=== PATIENT | female | born 1985 | race Caucasian/White ===

== ENCOUNTER 2021-08-31 13:43 | Outpatient (CLI) | payer OTHER, SELFPAY ==
[2021-08-31 14:08] LABS: Basophils Percent Auto 0.2 % (0.2-1.2); Eosinophils Percent Auto 0.2 % (0-4.4); Hematocrit 34.5 % (37.0-47.0); Immature Granulocyte Absolute 0.12 K/mm3 (0.00-0.031); Immature Granulocyte Percent A 0.9 % (0-0.5); Lymphocytes Absolute Auto 1.91 K/mm3 (0.9-3.2); Lymphocytes Percent Auto 14.6 % (18.3-44.2); Mean Corpuscular HGB Conc 34.8 g/dl (32-36); Mean Corpuscular Hemoglobin 34.4 pg (26-34); Mean Corpuscular Volume 98.9 fl (80-100); Mean Platelet Volume 9.2 fl (7.4-10.4); Monocytes Absolute Auto 0.6 K/mm3 (0.1-0.6); Monocytes Percent Auto 4.3 % (2.6-8.5); Neutrophils Absolute Auto 10.5 K/mm3 (1.3-6.7); Neutrophils Percent Auto 79.8 % (45.5-73.1); Platelet Count Result 306 k/mm3 (150-375); Red Blood Count 3.49 M/mm3 (4.2-5.4); Red Cell Distribution Width 12.8 % (11.5-14.5); White Blood Count 13.1 K/mm3 (4.5-10.0)
[2021-09-01 07:30] LABS: Rapid Plasma Reagin Non-Reactive (NonReactive)
== END 2021-08-31 13:44 | disposition home or self-care (01) ==
LOC: ANHLAB 13:45
PROVIDERS: Visit Provider Obstetrics & Gynecology
DX: O34.219 Maternal care for unspecified type scar from previous cesarean delivery (principal); Z3A.38 38 weeks gestation of pregnancy
CPT/HCPCS: 36415; 85025; 86592; 86850; 86900; 86901

== ENCOUNTER 2021-09-01 07:08 | Inpatient (IN) | payer OTHER, SELFPAY ==
[2021-09-01] VITALS (61 sets, daily range): BP systolic 88–143; BP diastolic 60–89; PULSE 79–117; RESP 14–20; TEMP 36.2–36.6; O2SAT 94–100; BMI 40.8
--- NOTE | 2021-09-01 08:10 | P.PNAN_ITS ---
Anes - Initial Pre Proc Eval Procedure: Operation Date: 09/01/21 09:00 Proposed Procedures p Repeat Section - Saloni Mercado MD Date/Time: 09/01/21 08:10 Surgeon: Saloni Mercado MD Pre Op Diagnosis: C Section Patient Data Age: 36 Gender: F Height: Weight: Allergies Allergy/AdvReac Type Severity Reaction Status Date / Time ibuprofen Allergy Mild RASH ALL Verified 11/21/19 16:25 OVER BODY Home Medications Medication Instructions Recorded Confirmed Type PNV cmb#95-ferrous fumarate-FA 1 tablet PO DAILY 08/10/21 08/10/21 History [] acetaminophen 650 mg PO Q6H PRN 08/10/21 08/10/21 History aspirin 81 mg PO DAILY 08/10/21 08/10/21 History chlorthalidone 25 mg PO DAILY 08/10/21 08/10/21 History labetalol 200 mg PO Q12H 08/10/21 08/10/21 History Patient hx anesthesia problems: none Family hx anesthesia problems: none Results Review: All pre-operative results and documents have been reviewed as part of the pre-operative evaluation. REPLACED BY [facility] Past Medical History Medical History Asthma Smoker Surgical History Surgical History History of Family History Family History (Updated 08/10/21 @ 13:46 by Jose L Sosa RN) Mother Heart attack Brain aneurysm Father Heart attack Social History Social History Smoking packs per day: 0.5 Smoking cigarettes per day: 10.0 Smoking status: Current every day smoker Second hand tobacco smoke exposure: Yes Substance use: never Spiritual care concerns: No Anes - Eval Final PreProcedure Day of Procedure 09/01/21 08:10 Patient weight: overweight Heart: regular rate and rhythm Lungs: clear to auscultation and normal air movement Airway: Mallampati scale class II Neurological: alert and oriented Last oral intake: >/= 8 hours ASA classification: II Emergent: no Anesthetic plan: proceed Anesthesia type and monitoring: regional spinal Results Review: All pre-operative results and documents have been reviewed as part of the pre-operative evaluation. Informed Consent: The patient's anesthetic plan and its attendant risks and benefits were discussed with the patient/family/POA. Questions were solicited and answers provided to the satisfaction of the patient/family/POA.
[2021-09-01] MEDS: LACTATED RINGERS 1,000 ML 999 ML IV CONT (08:16)
--- NOTE | 2021-09-01 08:50 | LDADM ---
This patient, Jillian Damon, was admitted to Labor/Delivery/Recovery 120 on 09/01/21 at 07:08. Plans for labor, pain management and were discussed with patient. Patient/family oriented to hospital policies and general routines including ID bracelet, bed and alarms, visiting hours, pain management, procedures, bathroom and other care routines, personal items, smoking policy, room service/diet and guest tray routines, security routines, and visiting hours. Patient/Family are encouraged to report perceived risks to care and to ask questions if they do not understand what they are told or what they should do. See OBIX for further documentation.
--- NOTE | 2021-09-01 08:56 | PM.IMHP ---
H&P: HPI History of Present Illness Date/Time: 09/01/21 08:56 Chief Complaint: repeat CS Narrative: Jillian is a 36yo at 38 weeks for repeat CS. complicated by AMA, asthma, and chronic HTN. On chlorthalidone 25mg and added labetalol 200BID several weeks ago. 24 hour urine did not show preeclampsia. 3 prior CS with known significant adhesions such that they were unable to tie her tubes last time. She desires tubal if tubes are easily accessible, but her will get a vasectomy if they are not. GBS pos. Review of Systems Review of Systems: All systems reviewed & are unremarkable except as noted in HPI and below PMFSH Past Medical History Medical History Asthma Chronic hypertension Smoker Surgical History Surgical History History of Family History Family History (Updated 08/10/21 @ 13:46 by Jose L Sosa RN) Mother Heart attack Brain aneurysm Father Heart attack Social History Social History Smoking packs per day: 0.5 Smoking cigarettes per day: 10.0 Smoking status: Never smoker Second hand tobacco smoke exposure: Yes Substance use: never Spiritual care concerns: No Meds Home Medications and Allergies Home Medications Medication Instructions Recorded Confirmed Type PNV cmb#95-ferrous fumarate-FA 1 tablet PO DAILY 08/10/21 08/10/21 History [] acetaminophen 650 mg PO Q6H PRN 08/10/21 08/10/21 History aspirin 81 mg PO DAILY 08/10/21 08/10/21 History chlorthalidone 25 mg PO DAILY 08/10/21 08/10/21 History labetalol 200 mg PO Q12H 08/10/21 08/10/21 History Allergies Allergy/AdvReac Type Severity Reaction Status Date / Time ibuprofen Allergy Mild RASH ALL Verified 11/21/19 16:25 OVER BODY Exam Const: General: no acute distress Resp: Effort & Inspection: normal respiratory effort Auscultation: clear to auscultation bilaterally Cardio: Rate: regular rate Rhythm: regular rhythm GI: GI Palp: Yes Soft to palpation Extrem: General: normal to inspection Assessment and Plan Additional Plan Plan Repeat CS Discussed RBA, pt consented, all questions answered. will do salpingectomy or tubal if able to access tubes. FHT category 1 will proceed.
--- NOTE | 2021-09-01 09:01 | WPDHPUPDATE1 ---
History and Physical Update Update Date/Time: 09/01/21 09:01 History and Physical has been reviewed, including an updated exam of the patient. There are NO changes in the patient's condition. Risks, benefits, and alternatives have been discussed and questions answered. Patient agrees to proceed with procedure.
[2021-09-01] MEDS: ceFAZolin 2 GM/D5W 50 ML 2 GM/50 ML BAG IVPB (09:23)
--- NOTE | 2021-09-01 11:00 | W.PM.PROC2 ---
Procedure Note - Detailed Date of Procedure 09/01/21 Pre-op Diagnosis C Section, undesired fertility Post-op Diagnosis same Procedure Performed repeat section with left salpingectomy and partial right salpingectomy Surgeon Saloni Mercado MD [employer] see delivery record Anesthesia spinal Indications prior CS Description of Procedure The patient was taken to the operating room and placed in supine position with left lateral tilt. She received spinal anesthesia and was prepped and draped in normal fashion. Acharya was in place. After testing for adequate regional anesthesia, a Pfannensteil incision was made through skin and subcutaneous tissue. The fascia was incised in the midline and this was extended laterally with wright scissors. The fascia was densely adherent in the midline. The rectus muscles were from the fascia both superiorly and inferiorly. The rectus muscles were densely adherent to the peritoneum and the uterus. Upon attempting to enter the peritoneum, an incidental hysterotomy was made bluntly and clear amniotic fluid was noted. The hysterotomy was mid transverse due to adhesions and was extended laterally with bandage scissors. The head was elevated to the incision. The head delivered easily. The remainder of the infant was delivered easily. After delayed cord clamping, the cord was cut and the baby handed to the nurse. The uterus was tethered to the rectus muscles and the anterior abdominal wall, but one thick adhesion was able to be freed up so the uterus could be exteriorized. The placenta was extracted manually. The uterus was wiped clean to ensure no remaining membranes. The uterus was closed with three layers of running, nonlocking suture of 3-0 vicryl. Due to the dense adhesions, several raw areas were not hemostatic and several figure of eight sutures were placed with good result. At this time we turned our attention to the tubes. The right tube was grasped with two [place] clamps and using the Ligasure device was sequentially clamped, ligated, and cut. The fimbriated end of the right tube was adherent to the ovary, and this end of the tube was left in place. On the left the entire tube was removed in a similar fashion with the Ligasure device. The uterus was returned to the pelvis and the abdomen was irrigated. The hysterotomy was again inspected and minimal oozing was noted. Hemaderm was placed. The fascia was closed with running suture of 0-vicryl. The subcutaneous tissue was irrigated and made hemostatic with bovie cautery. The skin was closed with absorbable seng and steri strips were placed. The patient tolerated the procedure well and mother and baby were both in stable condition. QBL 1330cc. Drains No Packing No Pathology yes Complications No immediate complications Condition stable Disposition floor
[2021-09-01] MEDS: OXYTOCIN 30 UNITS/NS 500 ML 30 UNITS/500 ML BAG 125 UNITS IV CONT (11:28)
[2021-09-01 13:25] LABS: Hemoglobin 10.7 g/dL (12.0-15.0); Mean Corpuscular HGB Conc 34.5 g/dl (32-36); Mean Corpuscular Hemoglobin 34.7 pg (26-34); Mean Corpuscular Volume 100.6 fl (80-100); Mean Platelet Volume 9.5 fl (7.4-10.4); Platelet Count Result 306 k/mm3 (150-375); Red Blood Count 3.08 M/mm3 (4.2-5.4); Red Cell Distribution Width 12.8 % (11.5-14.5); White Blood Count 16.7 K/mm3 (4.5-10.0)
--- NOTE | 2021-09-01 14:54 | OBPPTRN ---
1318 Patient transferred to post room #277 via bed. Support person present. Oriented to unit, room, information board, rooming in, admission packet and security measures. Patient verbalizes understanding.
--- NOTE | 2021-09-01 15:00 | PC.NURSE ---
Consult with pt. mother reports she put infant to breast at 1420, stating latched without discomfort and fed for 10 minutes. Reviewed infant feeding cues, frequencies, duration of feedings, feeding elimination flow sheet, and signs of adequate intake. Demonstrated stimulation techniques to wake infant for feeding. Nipple care reviewed of lanolin after feedings, warm compresses as needed. Instructed mother to call out for RN/LC assistance next feeding. Instructed feeding should be initiated three hours from start of last feeding or if feeding cues are noted before. Mother voiced understanding of information shared
[2021-09-01] MEDS: DEXTROSE 5%/0.45% SOD CHL 1,000 ML 125 ML IV CONT (16:33)
[2021-09-01] MEDS: DOCUSATE SODIUM 100 MG CAPSULE PO (16:35)
--- NOTE | 2021-09-01 17:52 | PC.NURSE ---
1318 Pt stated that she took her Labetalol 200mg at 0630 today.
[2021-09-01] MEDS: LABETALOL HCL 100 MG TABLET 200 MG PO (19:19)
[2021-09-01] MEDS: SIMETHICONE 80 MG TAB.CHEW PO (21:17)
[2021-09-02 04:05] VITALS: BP 106/68; PULSE 93; RESP 18; TEMP 36.9; O2SAT 95
[2021-09-02 04:50] LABS: Basophils Percent Auto 0.3 % (0.2-1.2); Eosinophils Absolute Auto 0.1 K/mm3 (0-0.3); Eosinophils Percent Auto 0.8 % (0-4.4); Hematocrit 27.5 % (37.0-47.0); Hemoglobin 9.4 g/dL (12.0-15.0); Immature Granulocyte Absolute 0.13 K/mm3 (0.00-0.031); Immature Granulocyte Percent A 1.1 % (0-0.5); Lymphocytes Absolute Auto 2.24 K/mm3 (0.9-3.2); Lymphocytes Percent Auto 19.8 % (18.3-44.2); Mean Corpuscular HGB Conc 34.2 g/dl (32-36); Mean Corpuscular Hemoglobin 34.2 pg (26-34); Mean Platelet Volume 9.6 fl (7.4-10.4); Monocytes Absolute Auto 0.6 K/mm3 (0.1-0.6); Monocytes Percent Auto 5.4 % (2.6-8.5); Neutrophils Absolute Auto 8.2 K/mm3 (1.3-6.7); Neutrophils Percent Auto 72.6 % (45.5-73.1); Platelet Count Result 274 k/mm3 (150-375); Red Blood Count 2.75 M/mm3 (4.2-5.4); Red Cell Distribution Width 12.7 % (11.5-14.5); White Blood Count 11.3 K/mm3 (4.5-10.0)
--- NOTE | 2021-09-02 07:40 | P.PNOB_ITS ---
OB - PN: Subj Subjective Date/time seen: 09/02/21 07:40 Patient comments: no complaints and pain well controlled baby status: nursing well Wilmot feeding status: exclusively breast feeding Narrative: POD 1 from primary CS. Doing well. Normal lochia. Eating, ambulating, murray out. HGb 9 from 12, but no sx. OB - PN: Obj Data Labs CBC & Chem 7: 09/02/21 04:16 Labs: Laboratory Results - last 24 hr 09/01/21 09/02/21 13:06 04:16 WBC 16.7 H 11.3 H RBC 3.08 L 2.75 L Hgb 10.7 L 9.4 L Hct 31.0 L 27.5 L MCV 100.6 H 100.0 MCH 34.7 H 34.2 H MCHC 34.5 34.2 RDW 12.8 12.7 Plt Count 306 274 MPV 9.5 9.6 Immature Gran % (Auto) 1.1 H Neut % (Auto) 72.6 Lymph % (Auto) 19.8 [place] % (Auto) 5.4 Eos % (Auto) 0.8 Baso % (Auto) 0.3 Lymph # (Auto) 2.24 [place] # (Auto) 0.6 Eos # (Auto) 0.1 Baso # (Auto) 0.0 Abs Immat Gran (auto) 0.13 H Absolute Neuts (auto) 8.2 H Absolute Nucleated RBC 0.0 Nucleated RBC % 0.0 OB - PN A/P Plan day: 1 Plan: routine care Comments: IV iron routine post op care Time Spent With Patient Time: Total time spent is greater than 50% in coordination of care (as documented) at patient's floor/unit and/or counseling patient: Exam Narrative: NAD abdomen soft, appropriately tender, incision bandaged Extremities nontender with 1+ edema
[2021-09-02 07:50] VITALS: BP 120/78; PULSE 106; RESP 18; TEMP 36.7; O2SAT 95
[2021-09-02] MEDS: CHLORTHALIDONE 25 MG TABLET PO (08:10)
[2021-09-02] MEDS: POLYSACCHARIDE IRON COMPLEX 150 MG CAPSULE PO ×2 (08:10→16:04)
[2021-09-02] MEDS: MULTIVIT/MIN/PREN/FOL AC/IRON TABLET 1 TAB PO (08:10)
[2021-09-02] MEDS: DOCUSATE SODIUM 100 MG CAPSULE PO ×2 (08:10→16:04)
[2021-09-02 08:11] VITALS: PULSE 80
[2021-09-02] MEDS: LABETALOL HCL 100 MG TABLET 200 MG PO ×2 (08:11→19:22)
[2021-09-02] MEDS: ACETAMINOPHEN 325 MG TABLET 650 MG PO (08:15)
[2021-09-02] MEDS: IRON SUCROSE COMPLEX 100 MG/5 ML VIAL 200 MG IV PUSH (08:17)
--- NOTE | 2021-09-02 11:45 | PC.NURSE ---
Consult with pt., mother reports she began supplementing during the night. was sleepy and not latching. Mother would like to breastfeed. Infant is able to freely thrust tongue past gum ridge and flange both lips. Skin is intact on both nipples, no redness and bruising noted. Reviewed infant feeding cues, frequencies, duration of feedings, feeding elimination flow sheet, and signs of adequate intake. Infant is wrapped in 2 blankets snugged up to mother. unwrapped demonstrated stimulation techniques to wake for feeding. Assisted with to breast. Reviewed positioning/alignment in football, holding breast in ?C? hold and guided asymmetrical latch on. Reviewed rational for each. Several attempts before infant able to latch correctly. Infant nursed eagerly with steady draws for short bursts followed with long pausing occasional swallowing noted. Reviewed signs of a correct latch, effective nursing and suck swallow ratio. Suggested mother stimulate while feeding to increase stimulate, increase intake and to assist with maintaining deep latch. Infant was able to maintain latch without discomfort to mother. Demonstrated how to adjust latch more deeply while feeding as needed. Nipple care reviewed of lanolin after feedings, warm compresses as needed. Discussed to supplement after . Suggested to limit supplement to 15-20mls and to pace feed. Instructed mother to call out for RN assistance if she is unable to latch for feeding or she has discomfort with nursing. Instructed feeding should be initiated three hours from start of last feeding or if feeding cues are noted before. Mother voiced understanding of information shared.
--- NOTE | 2021-09-02 14:29 | WPDANLDPN2 ---
Anes-Prog Note L&D Date/Time: 09/02/21 14:29 Comfortable throughout: section Neuraxial method: spinal Epidural/Spinal procedure site: clean & non-tender Neuro status: Neuro function grossly intact. Cardiovascular status: normal Respiratory status: normal Airway patency: baseline Mental status: baseline Post-Op hydration status: normal Vital Signs: Last Vital Signs Temp 36.7 C 09/02/21 07:50 Pulse 80 09/02/21 08:11 Resp 18 09/02/21 07:50 BP 120/78 09/02/21 07:50 Pulse Ox 95 09/02/21 07:50 Pain score (VAS): 4 I/O: Intake & Output 09/01/21 09/02/21 09/02/21 23:59 07:59 15:59 Intake Total 900 1150 Output Total 950 800 500 Balance -50 350 -500 Post-procedural complaints: none Patient feedback: Patient satisfied with anesthetic care.
--- NOTE | 2021-09-02 14:29 | WPDANLDNPN2 ---
Anes-Prog Note L&D-Neuraxial Date/Time: 09/02/21 14:29 Neuraxial medications: intrathecal PF morphine Opiod-related complaints: none Patient feedback: Patient satisfied with post-operative pain management.
[2021-09-02] MEDS: HYDROcodone/acetaminophen (*CRX) 5-325 MG TABLET 1 TAB PO ×2 (14:39→18:36)
[2021-09-02 19:20] VITALS: BP 127/78; PULSE 99; RESP 18; TEMP 36.9; O2SAT 96
[2021-09-02 19:22] VITALS: PULSE 99
[2021-09-03 07:35] VITALS: BP 131/84; PULSE 93; RESP 18; TEMP 36.9; O2SAT 96
[2021-09-03 08:10] VITALS: PULSE 87
[2021-09-03] MEDS: LABETALOL HCL 100 MG TABLET 200 MG PO (08:10)
[2021-09-03] MEDS: POLYSACCHARIDE IRON COMPLEX 150 MG CAPSULE PO (08:11)
[2021-09-03] MEDS: DOCUSATE SODIUM 100 MG CAPSULE PO (08:11)
[2021-09-03] MEDS: MULTIVIT/MIN/PREN/FOL AC/IRON TABLET 1 TAB PO (08:11)
--- NOTE | 2021-09-03 08:21 | PM.OBPNVD ---
OB - PN: Subj Subjective Date/time seen: 09/03/21 08:21 Patient comments: no complaints, pain well controlled, tolerating diet and flatus present baby status: doing well OB - PN: Obj Data Labs CBC & Chem 7: 09/02/21 04:16 OB - PN A/P Plan day: 2 Plan: routine care and discharge home (Follow up in 1 week) Time Spent With Patient Time: Total time spent is greater than 50% in coordination of care (as documented) at patient's floor/unit and/or counseling patient: Time with patient: less than 15 minutes Review of Systems Review of Systems: All systems reviewed & are unremarkable except as noted in HPI and below Exam Narrative: Fundus firm. Vaginal flow controlled. Incision dry and intact. Negative homans. No redness, warmth, or pain of lower ext. Const: General: comfortable Chest: Breast/axilla inspection: normal inspection of the breasts Resp: Effort & Inspection: normal respiratory effort Auscultation: clear to auscultation bilaterally Cardio: Rate: regular rate GI: GI Palp: Yes Soft to palpation Psych: Appearance: grossly normal Affect: normal affect Attitude: cooperative Thought content: Yes Normal thought content present Judgement: Good judgement present (Psych)
[2021-09-03] MEDS: CHLORTHALIDONE 25 MG TABLET PO (08:47)
[2021-09-03] MEDS: HYDROcodone/acetaminophen (*CRX) 5-325 MG TABLET 1 TAB PO (08:48)
--- NOTE | 2021-09-03 10:25 | PC.NURSE ---
Patient instructed on viewing the discharge video Mother & Baby Care, The First Two Weeks . Patient was given the opportunity and encouraged to ask questions. Patient verbalized understanding of information shared and has been given the mother/baby guide for home reference.
[2021-09-04 08:56] VITALS: BP 117/74; PULSE 94; RESP 20; TEMP 37.6; O2SAT 98
--- NOTE | 2021-09-21 08:22 | PM.OBDSVD ---
DS: Admitting Diagnosis Discharge Date 09/03/21 Admitting Diagnosis Repeat OB - DS: Summary OB Procedures : None OB Procedures Intrapartum: OB Procedures: : None Peripartum Data Procedures: Procedures Operation Date: 09/01/21 09:00 Actual Procedure Side Surgeon p Repeat Section Saloni Mercado MD Time Spent with Patient Time attestation: Total time spent providing and/or coordinating discharge services: DS: Data Data Completed and Pending Completed studies during hospitalization: Pending at discharge 09/01/21 11:21 Surgical [PTH] Routine Discharge Plan Discharge Attending physician on discharge: Saloni Mercado Consulting providers: Carolyn Little ; Francisco Benites Discharging Clinician: Carolyn Little Patient Disposition: Home, Self-Care Activity: pelvic rest Diet: as tolerated Discharge Instructions: Education: Mom and Baby Guide Given to: Mother Follow-Up: Call your delivering provider's office for an appointment to be seen in: Call for appointment [facility] follow[facility]up appointment. Appointment Date/Time: September 04, 2021 at 9:00 am What to expect at your follow-up visit: Blood Pressure Check Physical Assessment Call [phone] if you are unable to keep your appointment time. BREAST CARE: * Wear a snug supportive bra. * For engorgement discomfort: Breast Feeding: * Apply warm moist washcloths * Express milk as needed to relieve engorgement * Wear loose clothing * For sore nipples: * Identify correct latch-on * Apply warm moist washcloths before and after nursing * Air dry nipples after nursing * May apply Lansinoh cream to nipples ABDOMINAL INCISION: (if applicable) * Allow incision to air dry * Do NOT use lotions for powders on your incision * When showering, allow soap and water to run over the incision, but do not wash incision EPISIOTOMY/PERINEAL CARE: * Until bleeding stops, use your vipul bottle after urinating * Change your pad frequently throughout the day * No tub baths until seen by your physician - You may shower ACTIVITY: * Rest as much as possible. * Do not exercise or lift anything heavier than your baby (such as laundry or other children.) * Avoid stairs or driving as much as possible. * Do not put anything into the vagina. No douching, tampons, or sexual activity until seen by physician. NOTIFY PHYSICIAN IF YOU HAVE ANY QUESTIONS OR IF ANY OF THE FOLLOWING SYMPTOMS OCCUR: * If your incision becomes red, swollen, or more painful than what you have experienced in the hospital. * If your vaginal bleeding becomes foul smelling. * If your vaginal bleeding becomes more heavy than a period or if your bleeding changes from pink to bright red. However, you may pass an occasional walnut-sized clot once or twice for the first week . * If you experience a sharp, shooting pain in you calves. * If you discover a hard, reddened area on your breast or if you experience flu-like symptoms. DIET: * Eat regular, well-balanced meals. * Drink plenty of fluids daily. If , drink to thirst. Stand Alone Forms: General Discharge Information Follow-up/Referrals: Saloni Mercado MD [Physician] - Discharge Medications: New hydrocodone-acetaminophen 5-325 mg tablet 1 tablet PO Q6H PRN (Reason: pain) Qty: 20 RF: 0 Continued labetalol 200 mg Tablet 200 mg PO Q12H RF: 0 chlorthalidone 25 mg Tablet 25 mg PO DAILY RF: 0 acetaminophen 650 mg Tablet 650 mg PO Q6H PRN (Reason: Headache) RF: 0 aspirin 81 mg Tablet 81 mg PO DAILY RF: 0 PNV cmb#95-ferrous fumarate-FA [] 28 mg iron- 800 mcg Tablet 1 tablet PO DAILY RF: 0 Date of admission: 09/01/21 07:08 Primary Care Provider: PHYSICIAN,CRTS Admi
== END 2021-09-03 12:10 | disposition home or self-care (01) | DRG 784 ==
LOC: ANHLDR 07:12 → ANHOB2 13:21
PROVIDERS: Admitting Provider Obstetrics & Gynecology; Visit Provider Obstetrics & Gynecology
PROC: 10D00Z1 Extraction of Products of Conception, Low, Open Approach (ICD-10-PCS; CPT 59514; principal; 2021-09-01 09:00)
DX: O34.211 Maternal care for low transverse scar from previous cesarean delivery (principal); O10.92 Unspecified pre-existing hypertension complicating childbirth; Z37.0 Single live birth; Z3A.38 38 weeks gestation of pregnancy; O99.824 Streptococcus B carrier state complicating childbirth; O99.52 Diseases of the respiratory system complicating childbirth; J45.909 Unspecified asthma, uncomplicated; O99.334 Smoking (tobacco) complicating childbirth; F17.210 Nicotine dependence, cigarettes, uncomplicated; Z30.2 Encounter for sterilization
CPT/HCPCS: 36415; 85025; 85027; 86592; 86850; 86900; 86901; 88302; A9270; J0131; J0690; J1756; J2274; J2405; J2590; J7120

== ENCOUNTER 2023-01-08 08:55 | Outpatient (CLI) | payer OTHER, SELFPAY ==
[2023-01-08 09:14] LABS: Basophils Percent Auto 0.3 % (0.2-1.2); Eosinophils Absolute Auto 0.2 K/mm3 (0-0.3); Eosinophils Percent Auto 1.9 % (0-4.4); Hematocrit 37.7 % (37.0-47.0); Hemoglobin 13.2 g/dL (12.0-15.0); Immature Granulocyte Absolute 0.05 K/mm3 (0.00-0.031); Immature Granulocyte Percent A 0.5 % (0-0.5); Lymphocytes Absolute Auto 2.52 K/mm3 (0.9-3.2); Lymphocytes Percent Auto 25.8 % (18.3-44.2); Mean Corpuscular Hemoglobin 31.1 pg (26-34); Mean Corpuscular Volume 88.7 fl (80-100); Mean Platelet Volume 8.7 fl (7.4-10.4); Monocytes Absolute Auto 0.6 K/mm3 (0.1-0.6); Monocytes Percent Auto 5.6 % (2.6-8.5); Neutrophils Absolute Auto 6.4 K/mm3 (1.3-6.7); Neutrophils Percent Auto 65.9 % (45.5-73.1); Platelet Count Result 398 k/mm3 (150-375); Red Blood Count 4.25 M/mm3 (4.2-5.4); Red Cell Distribution Width 13.2 % (11.5-14.5); White Blood Count 9.8 K/mm3 (4.5-10.0)
[2023-01-08 09:24] LABS: Alanine Aminotransferase 25 U/L (6-35); Albumin Level 4.4 g/dL (3.5-5.1); Alkaline Phosphatase 95 U/L (38-126); Anion Gap 6 mmol/L (8-16); Aspartate Amino Transferase 25 U/L (14-36); Blood Urea Nitrogen 9 mg/dL (7-17); Calcium 8.6 mg/dL (8.4-10.2); Carbon Dioxide 30 mmol/L (22-30); Chloride 101 mmol/L (98-107); Cholesterol 158 mg/dL (0-200); Estimated Glomerular Filt Rate > 60; Glucose 103 mg/dL (65-110); HDL Direct 36 mg/dL; Potassium 3.2 mmol/L (3.4-5.0); Sodium 137 mmol/L (137-145); Triglycerides 127 mg/dL (<150)
[2023-01-08 09:35] LABS: LDL Cholesterol Direct 86 mg/dL
[2023-01-08 10:35] LABS: Hemoglobin A1C 4.9 % (<5.7)
[2023-01-08 11:09] LABS: Thyroid Stimulating Hormone Reflex 0.438 uIU/mL (0.465-4.68)
[2023-01-08 19:37] LABS: Free T4 Free Thyroxine Reflex 0.91 ng/dL (0.78-2.19)
[2023-01-08 21:05] LABS: Total Triiodothyronine (T3) 1.48 NG/ML (0.97-1.69)
== END 2023-01-08 08:56 | disposition home or self-care (01) ==
PROVIDERS: PCP Family Medicine; Visit Provider Nurse Practitioner Gerontology
DX: I10 Essential (primary) hypertension (principal)
CPT/HCPCS: 36415; 80053; 80061; 83036; 84439; 84443; 84480; 85025

== ENCOUNTER 2023-01-25 14:59 | Outpatient (CLI) | payer OTHER, SELFPAY ==
--- NOTE | ~2023-01-25 | US_ITS ---
EXAMINATION: US thyroid DATE: 01/25/2023 15:19 INDICATION: Thyrotoxicosis. TECHNIQUE: Multiple ultrasound images of the thyroid were obtained. COMPARISON: None. FINDINGS: The right thyroid lobe measures 5.6 x 1.2 x 1.7 cm. The left thyroid lobe measures 4.2 x 1.4 x 1.3 c m. Thyroid isthmus measures 3 mm in thickness. 4 mm anechoic likely cystic TI RADS 1 nodule with smoo th margins the superior left thyroid. There is additional 3 mm less well-defined round very hypoechoi c nodule in the left thyroid without echogenic foci (TI-RADS 4, moderately suspicious , FNA if >=1.5 cm, annual followup is >=1 cm). There is normal echotexture, echogenicity and vascular flow throughou t the thyroid gland. IMPRESSION: 1. A couple 3-4 mm thyroid nodules which remain below size criteria for either biopsy or follow-up. Reviewed, dictated and finalized at location A. [facility]
== END 2023-01-25 15:00 | disposition home or self-care (01) ==
PROVIDERS: PCP Family Medicine; Visit Provider Nurse Practitioner Gerontology
DX: E05.90 Thyrotoxicosis, unspecified without thyrotoxic crisis or storm (principal); E04.2 Nontoxic multinodular goiter
CPT/HCPCS: 76536

== ENCOUNTER 2023-03-01 14:19 | Outpatient (CLI) | payer OTHER, SELFPAY ==
[2023-03-01 14:47] LABS: Alanine Aminotransferase 21 U/L (6-35); Alkaline Phosphatase 88 U/L (38-126); Anion Gap 9 mmol/L (8-16); Aspartate Amino Transferase 24 U/L (14-36); Bilirubin,Total 0.8 mg/dL (0.2-1.3); Blood Urea Nitrogen 17 mg/dL (7-17); Calcium 9.4 mg/dL (8.4-10.2); Carbon Dioxide 29 mmol/L (22-30); Chloride 101 mmol/L (98-107); Estimated Glomerular Filt Rate > 60; Glucose 93 mg/dL (65-110); Potassium 3.9 mmol/L (3.4-5.0); Sodium 139 mmol/L (137-145)
[2023-03-01 15:18] LABS: Thyroid Stimulating Hormone 0.791 uIU/mL (0.465-4.680)
[2023-03-01 15:23] LABS: Free T4 Free Thyroxine 0.92 ng/mL (0.78-2.19)
[2023-03-04 06:08] LABS: Thyroid Peroxidase Antibodies <1 IU/mL (<9)
== END 2023-03-01 14:20 | disposition home or self-care (01) ==
PROVIDERS: PCP Family Medicine; Visit Provider Family Medicine
DX: I10 Essential (primary) hypertension (principal); E07.9 Disorder of thyroid, unspecified
CPT/HCPCS: 36415; 80053; 84439; 84443; 86376

== ENCOUNTER 2023-07-27 08:38 | Emergency (ER) | payer OTHER, SELFPAY ==
[2023-07-27 08:42] VITALS: BP 166/110; PULSE 117; RESP 17; TEMP 36.3; O2SAT 100
[2023-07-27 09:56] VITALS: BP 179/119; PULSE 104; RESP 18; O2SAT 100
--- NOTE | 2023-07-27 10:52 | ED.HA ---
HPI - Headache General Chief Complaint: Headache Stated Complaint: Sharp pain left sd head Time Seen by Provider: 07/27/23 10:26 History of Present Illness HPI Narrative: This is a 38-year-old female, past history of hypertension, who presents to the emergency department with a headache for the past 6 days and neck pain. The patient states her headache is similar to previous migraines, though began in the posterior left neck. She denies associated weakness, numbness, change in vision or loss of vision. She rates her pain /10. Related Data Allergies Allergy/AdvReac Type Severity Reaction Status Date / Time ibuprofen Allergy Mild RASH ALL Verified 07/27/23 09:56 OVER BODY Review of Systems Review of Systems: CONSTITUTIONAL: Denies fever, chills, or sweats. EYES: Denies visual changes, redness, or discharge. CARDIOVASCULAR: Denies chest pain, palpitations, or edema. RESPIRATORY: Denies cough or dyspnea. GASTROINTESTINAL: Denies abdominal pain, nausea, vomiting, or diarrhea. GENITOURINARY: Denies dysuria or hematuria. SKIN: Denies rash or itching. MUSCULOSKELETAL: Denies back pain, joint pain, or myalgia. NEUROLOGIC: Headache denies numbness, dizziness, or weakness. PSYCHIATRIC: Denies anxiety or depression. [facility] Past Medical History Medical History Asthma BMI 39.0-39.9,adult Chronic hypertension Eczema Pain Physical examination of employee PIH ( induced hypertension) Smoker URI (upper respiratory infection) Surgical History Surgical History deliv NOS-unsp History of S/P tubal ligation Family History Family History Mother Heart attack Brain aneurysm Father Heart attack Social History Social History Social History: Smoking packs per day: 1 Smoking cigarettes per day: 20.0 Years smoked: 20 Smoking pack-years: 20.00 Smoking status: Current every day smoker Tobacco type: cigarettes Second hand tobacco smoke exposure: Yes Alcohol intake: never Substance use: never Substance use type: does not use Lack of Transportation: No Lack of Food: Never True Current Housing: I Have Housing Concerned About Future Housing: No Difficulty Paying Gas/Electric Bills: No Difficulty Paying for Meds: No Currently Unemployed: No Education: Decline to Answer Difficulty w/ Childcare or Family Care: No Living arrangements: with family Occupation/Education: occupation Gender identity (if verbalized by the patient): Female Sexual Orientation (if Verbalized by the Patient): Straight or Heterosexual Spiritual care concerns: No Exam Narrative: GENERAL: Well-developed, well-nourished, and in no acute distress. HEAD: Normocephalic, atraumatic. EYES: PERRLA and EOMI. NECK: Supple. No JVD CHEST: Clear to auscultation. No respiratory distress. No wheezes rales or rhonchi HEART: Regular rate and rhythm. No murmur heard. Normal peripheral pulses. ABDOMEN: Soft, nontender, nondistended, normal active bowel sounds. EXTREMITIES: Normal range of motion. No edema. SKIN: Warm, dry, no rash. NEURO: Alert and oriented x3. Strength 5/5 in all extremities, sensation intact bilaterally, no noted ataxia, cranial nerves II through XII intact PSYCH: Normal mood and affect. Course Course Emergency Course: 10:50 - The patient's exam is not concerning for stroke or other focal neurodeficit. The characteristics of the patient's headache is not concerning for intracranial hemorrhage. Will treat with pain medications, lidocaine patches and discharged with primary care follow-up. The patient states she did not take her antihypertensive medications this morning. We will give her amlodipine prior to discharge. Discussed return an
[2023-07-27] MEDS: ACETAMINOPHEN 500 MG TABLET 1000 MG PO (11:20)
[2023-07-27] MEDS: amLODIPine BESYLATE 5 MG TABLET 10 MG PO (11:21)
[2023-07-27] MEDS: LIDOCAINE 5% PATCH 1 PATCH TRANSDERM (11:22)
[2023-07-27 11:23] VITALS: BP 150/107; PULSE 83; RESP 18; O2SAT 100
== END 2023-07-27 11:39 | disposition home or self-care (01) ==
PROVIDERS: Emergency Provider Preventive Medicine Aerospace Medicine; PCP Family Medicine
DX: G43.909 Migraine, unspecified, not intractable, without status migrainosus (principal); S16.1XXA Strain of muscle, fascia and tendon at neck level, initial encounter; I10 Essential (primary) hypertension; J45.909 Unspecified asthma, uncomplicated; F17.210 Nicotine dependence, cigarettes, uncomplicated; X58.XXXA Exposure to other specified factors, initial encounter
CPT/HCPCS: 99283; A9270

== ENCOUNTER 2023-11-22 12:05 | Outpatient (CLI) | payer OTHER, SELFPAY ==
[2023-11-22 12:43] LABS: Basophils Percent Auto 0.4 % (0.2-1.2); Eosinophils Absolute Auto 0.1 K/mm3 (0-0.3); Eosinophils Percent Auto 1.4 % (0-4.4); Hematocrit 40.9 % (37.0-47.0); Hemoglobin 14.2 g/dL (12.0-15.0); Immature Granulocyte Absolute 0.05 K/mm3 (0.00-0.031); Immature Granulocyte Percent A 0.5 % (0-0.5); Lymphocytes Absolute Auto 2.64 K/mm3 (0.9-3.2); Lymphocytes Percent Auto 26.1 % (18.3-44.2); Mean Corpuscular HGB Conc 34.7 g/dl (32-36); Mean Corpuscular Hemoglobin 31.3 pg (26-34); Mean Corpuscular Volume 90.3 fl (80-100); Mean Platelet Volume 9.3 fl (7.4-10.4); Monocytes Absolute Auto 0.5 K/mm3 (0.1-0.6); Monocytes Percent Auto 4.7 % (2.6-8.5); Neutrophils Absolute Auto 6.8 K/mm3 (1.3-6.7); Neutrophils Percent Auto 66.9 % (45.5-73.1); Platelet Count Result 433 k/mm3 (150-375); Red Blood Count 4.53 M/mm3 (4.2-5.4); Red Cell Distribution Width 13.1 % (11.5-14.5); White Blood Count 10.1 K/mm3 (4.5-10.0)
[2023-11-22 12:53] LABS: Appearance Urine Clear (Clear); Bacteria Urine None Seen /hpf; Bilirubin Urine Negative (Negative); Blood Urine Negative (Negative); Color Urine Yellow (Yellow); Glucose Urine UA Negative (Negative); Ketones Urine Negative (Negative); Leukocyte Esterase Ur Negative LEU/UL (Negative); Need Manual Microscopic Reviewed; Nitrate Urine Negative (Negative); Protein Urine 1+ mg/dL (Negative); RBC Urine 0-2 /hpf (0-2); Specific Grav Ur 1.015 (1.001-1.035); Squamous Epithelial Cell Urine Occasional /hpf (Few); WBC Urine 0-5 /hpf
[2023-11-22 12:55] LABS: Alanine Aminotransferase 41 U/L (6-35); Albumin Level 4.5 g/dL (3.5-5.1); Alkaline Phosphatase 90 U/L (38-126); Anion Gap 10 mmol/L (8-16); Aspartate Amino Transferase 31 U/L (14-36); Bilirubin,Total 0.8 mg/dL (0.2-1.3); Blood Urea Nitrogen 13 mg/dL (7-17); Calcium 9.6 mg/dL (8.4-10.2); Carbon Dioxide 29 mmol/L (22-30); Chloride 100 mmol/L (98-107); Estimated Glomerular Filt Rate > 60; Glucose 106 mg/dL (65-110); Potassium 3.1 mmol/L (3.4-5.0); Sodium 139 mmol/L (137-145)
[2023-11-22 12:57] LABS: Add Urine Microscopic? YES
[2023-11-22 13:25] LABS: Thyroid Stimulating Hormone 0.991 uIU/mL (0.465-4.680); Total Triiodothyronine (T3) 1.55 NG/ML (0.97-1.69)
[2023-11-22 14:02] LABS: Free T4 Free Thyroxine 1.24 ng/mL (0.78-2.19)
[2023-11-24 18:33] LABS: Anti Cyclic Citrullinated Pept <16 Units (<20)
[2023-11-25 03:53] LABS: Thyroid Peroxidase Antibodies <1 IU/mL (<9)
== END 2023-11-22 12:06 | disposition home or self-care (01) ==
LOC: ANHLAB 12:06
PROVIDERS: PCP Family Medicine; Visit Provider Family Medicine
DX: R30.0 Dysuria (principal); I10 Essential (primary) hypertension; E07.9 Disorder of thyroid, unspecified; E04.9 Nontoxic goiter, unspecified; Z82.61 Family history of arthritis; R73.09 Other abnormal glucose
CPT/HCPCS: 36415; 80053; 81001; 83036; 84439; 84443; 84480; 85025; 86200; 86376

== ENCOUNTER 2023-12-01 07:57 | Outpatient (CLI) | payer OTHER, SELFPAY ==
--- NOTE | ~2023-12-01 | CT_ITS ---
EXAMINATION: CTA abdomen DATE: 12/01/2023 08:17 INDICATION: Essential primary hypertension. TECHNIQUE: Computed tomographic angiography (CTA) of the abdomen was performed with 100 mL Omnipaque- 350 intravenous contrast. Automated exposure control and iterative reconstruction technique were empl oyed. The dose-length product was 792.15 mGy-cm. Maximum intensity projection 3D-reconstructions of t he aorta and other arteries were constructed by the technologist on a separate workstation. COMPARISON: CT abdomen and pelvis 11/21/2019 FINDINGS: The visualized portions of the lung bases demonstrate minimal atelectasis. There is a stabl e 4 mm nodule left lower lobe, likely benign. No pleural effusion. The heart size is normal. No peric ardial effusion. The liver and gallbladder are normal. There is a 5.9 cm mass in the spleen. There is a stable 17 mm mass in right adrenal gland, likely an adenoma. The left adrenal gland and kidneys ar e normal. There is a widemouthed ventral hernia containing nonobstructed small and large bowel. Parti ally visualized is a chronic 2.3 x 1.6 cm subcutaneous mass in left lower quadrant abdominal wall. Th ere are no pathologically enlarged lymph nodes. There is no free intraperitoneal fluid. There is no s ignificant stenosis of celiac axis, superior mesenteric artery, the renal arteries, or inferior mesen teric artery. There is mild thoracic and lumbar spondylosis. IMPRESSION: 1. No renal artery stenosis. 2. Chronic 17 mm right adrenal mass, likely an adenoma. 3. 5.9 cm mass in the spleen, increased from 2.8 cm on 11/21/19, which may be benign or less likely mal ignant. PET/CT is recommended. 4. Chronic 2.3 cm subcutaneous mass in left lower quadrant abdominal wall, most likely endometriosis in a surgical scar. Reviewed, dictated and finalized at location A. RONMENTAL SERVICES ASSOCIATE IMPRESSION: 1. No renal artery stenosis. 2. Chronic 17 mm right adrenal mass, likely an adenoma. 3. 5.9 cm mass in the spleen, increased from 2.8 cm on 11/21/19, which may be betsy ign or less likely malignant. PET/CT is recommended. 4. Chronic 2.3 cm subcutaneous mass in left lower quadrant abdominal wall, most likely endometriosis in a surgical scar.
== END 2023-12-01 07:58 | disposition home or self-care (01) ==
PROVIDERS: PCP Family Medicine; Visit Provider Internal Medicine Cardiovascular Disease
DX: I10 Essential (primary) hypertension (principal); E27.9 Disorder of adrenal gland, unspecified; R16.1 Splenomegaly, not elsewhere classified; R19.09 Other intra-abdominal and pelvic swelling, mass and lump
CPT/HCPCS: 74175; Q9967

== ENCOUNTER 2023-12-11 23:13 | Emergency (ER) | payer OTHER, SELFPAY ==
--- NOTE | ~2023-12-11 | CT_ITS ---
Non-contrast Head CT History: Paresthesias Technique: Axial non-contrast imaging of the brain was performed. Dose reduction technique was used on this scan by utilizing automated exposure control and iterative reconstruction technique. The dose -length product (DLP) was 681.00 mGy-cm. Findings: There is no evidence of intracranial hemorrhage, mass lesion, or acute infarct. Brain par enchyma appears normal. The ventricles and subarachnoid spaces are normal in size. The calvarium ap pears normal. The visualized paranasal sinuses and mastoid air cells are clear. Impression: No significant abnormality seen. Reviewed, dictated and finalized at location . STIGATION LIEUTENANT Impression: No significant abnormality seen.
--- NOTE | ~2023-12-11 | XR_ITS ---
Clinical Indication: Chest pain PA and lateral views of the chest: Comparison: 07/14/2016 Findings: The lungs are clear, without evidence of focal consolidation or pleural effusion. Cardiome diastinal silhouette is within normal limits. Bones and soft tissues are unremarkable. Impression: Normal chest. Reviewed, dictated and finalized at location . ATIONS MANAGER Impression: Normal chest.
[2023-12-11 23:18] VITALS: BP 191/115; PULSE 101; RESP 20; TEMP 36.7; O2SAT 100
[2023-12-11 23:21] VITALS: PULSE 97; RESP 22; O2SAT 100
--- NOTE | 2023-12-11 23:27 | ECG_ITS ---
Measurements Intervals Ava Rate: 98 P: 10 CO: 179 QRS: 18 QRSD: 94 T: 25 QT: 343 QTc: 438 Interpretive Statements SINUS RHYTHM DELAYED PRECORDIAL R/S TRANSITION BORDERLINE ST ABNORMALITY- HIGH LATERAL LEADS BASELINE ARTIFACT- I, III, AVL, V4 BORDERLINE ECG NO PREVIOUS ECG AVAILABLE FOR COMPARISON Electronically Signed On 12-12-2023 6:44:23 CALL CENTER TEAM LEADER by Christiano Reis D.O.
--- NOTE | 2023-12-11 23:29 | ED.CHESTPAIN ---
HPI - Chest Pain General Chief Complaint: Chest Pain Stated Complaint: Tingling in left arm, chest pain Time Seen by Provider: 12/11/23 23:27 Source: patient Mode of arrival: ambulatory Limitations: no limitations History of Present Illness HPI narrative: This is a 38 year old female that presents to the ER for left sided chest pain. Reports she was seated at home when is started. She started to have intermittent left sided chest pressure associated with tingling in the left arm. Reports some mild shortness of breath. Reports recent stress due to having a splenic mass. Denies palpitations or lower extremity edema. Related Data Allergies Allergy/AdvReac Type Severity Reaction Status Date / Time ibuprofen Allergy Mild RASH ALL Verified 12/11/23 23:22 OVER BODY Review of Systems Review of Systems: CONSTITUTIONAL: Denies fever CARDIOVASCULAR: Reports chest pain. Denies palpitations, or edema. RESPIRATORY: Reports dyspnea. Denies cough All systems reviewed & are unremarkable except as noted in HPI and below PMFSH Past Medical History Medical History Asthma BMI 39.0-39.9,adult Chronic hypertension Eczema Pain Physical examination of employee PIH ( induced hypertension) Smoker URI (upper respiratory infection) Surgical History Surgical History deliv NOS-unsp History of S/P tubal ligation Family History Family History Mother Heart attack Brain aneurysm Father Heart attack Social History Social History Social History: Smoking packs per day: 1 Smoking cigarettes per day: 20.0 Years smoked: 20 Smoking pack-years: 20.00 Smoking status: Current every day smoker Tobacco type: cigarettes Second hand tobacco smoke exposure: Yes Alcohol intake: never Substance use: never Substance use type: does not use Do You Feel Safe in your Home?: Yes Lack of Transportation: No Lack of Food: Never True Current Housing: I Have Housing Concerned About Future Housing: No Difficulty Paying Gas/Electric Bills: No Difficulty Paying for Meds: No Currently Unemployed: No Education: High School Diploma/GED Difficulty w/ Childcare or Family Care: No Living arrangements: with family Occupation/Education: occupation Gender identity (if verbalized by the patient): Female Sexual Orientation (if Verbalized by the Patient): Straight or Heterosexual Spiritual care concerns: No Exam Narrative: GENERAL: Well-appearing, well-nourished, and in no acute distress. HEAD: Normocephalic, atraumatic. EYES: PERRLA and EOMI. ENT: Nares clear, no rhinorrhea or epistaxis. Mucous membranes moist. Oropharynx without tonsillar hypertrophy exudate or other lesions. Bilateral TMs pearly day non-bulging NECK: Supple. No adenopathy or masses. No JVD CHEST: Clear to auscultation. No respiratory distress. No wheezes rales or rhonchi HEART: Regular rate and rhythm. No murmur heard. Normal peripheral pulses. EXTREMITIES: Normal range of motion. No edema. Strength equal in bilateral upper and lower extremities (5/5) SKIN: Warm, dry, no rash. NEURO: No focal deficits. Alert and oriented x3. CN II-XII grossly intact PSYCH: Normal mood and affect Course Course Emergency Course: Patient updated on workup and agrees with plan of care Vital Signs Vital signs: Vital Signs Temperature 98.1 F 12/11/23 23:18 Pulse Rate 101 H 12/11/23 23:18 Respiratory Rate 20 12/11/23 23:18 Blood Pressure 191/115 H 12/11/23 23:18 Pulse Oximetry 100 12/11/23 23:18 Oxygen Delivery Room Air 12/11/23 23:18 Temperature 98.1 F 12/11/23 23:18 Pulse Rate 79 12/12/23 02:47 Respiratory Rate 15 12/12/23 02:47 Blood Pressure 128/86 12/12/23 02:47 Pulse Oxime
[2023-12-11 23:46] LABS: Basophils Percent Auto 0.4 % (0.2-1.2); Eosinophils Absolute Auto 0.2 K/mm3 (0-0.3); Eosinophils Percent Auto 2.5 % (0-4.4); Hematocrit 40.5 % (37.0-47.0); Hemoglobin 13.6 g/dL (12.0-15.0); Immature Granulocyte Absolute 0.02 K/mm3 (0.00-0.031); Immature Granulocyte Percent A 0.2 % (0-0.5); Lymphocytes Absolute Auto 2.74 K/mm3 (0.9-3.2); Lymphocytes Percent Auto 29.4 % (18.3-44.2); Mean Corpuscular HGB Conc 33.6 g/dl (32-36); Mean Corpuscular Hemoglobin 31.3 pg (26-34); Mean Corpuscular Volume 93.3 fl (80-100); Mean Platelet Volume 9.4 fl (7.4-10.4); Monocytes Absolute Auto 0.5 K/mm3 (0.1-0.6); Monocytes Percent Auto 5.6 % (2.6-8.5); Neutrophils Absolute Auto 5.8 K/mm3 (1.3-6.7); Neutrophils Percent Auto 61.9 % (45.5-73.1); Platelet Count Result 427 k/mm3 (150-375); Red Blood Count 4.34 M/mm3 (4.2-5.4); Red Cell Distribution Width 12.9 % (11.5-14.5); White Blood Count 9.3 K/mm3 (4.5-10.0)
[2023-12-12] VITALS (7 sets, daily range): BP systolic 128–146; BP diastolic 86–96; PULSE 79–94; RESP 14–23; O2SAT 95–98
[2023-12-12 00:04] LABS: Alanine Aminotransferase 27 U/L (6-35); Albumin Level 4.2 g/dL (3.5-5.1); Alkaline Phosphatase 78 U/L (38-126); Anion Gap 10 mmol/L (8-16); Aspartate Amino Transferase 22 U/L (14-36); Bilirubin,Total 0.5 mg/dL (0.2-1.3); Blood Urea Nitrogen 14 mg/dL (7-17); Calcium 9.5 mg/dL (8.4-10.2); Carbon Dioxide 30 mmol/L (22-30); Chloride 101 mmol/L (98-107); Estimated CRCL calculation 67 ml/min; Estimated Glomerular Filt Rate 56; Glucose 91 mg/dL (65-110); Lipase 85 U/L (23-300); Potassium 2.9 mmol/L (3.4-5.0); Sodium 141 mmol/L (137-145)
[2023-12-12 00:15] LABS: Troponin I < 0.012 ng/mL (0.000-0.034)
[2023-12-12] MEDS: ACETAMINOPHEN 500 MG TABLET 1000 MG PO (00:38)
[2023-12-12] MEDS: POTASSIUM CHLORIDE 20 MEQ ER TABLET 40 MEQ PO (00:39)
[2023-12-12] MEDS: SODIUM CHLORIDE 0.9% IV 1,000 ML 999 ML IV CONT (00:39)
[2023-12-12 00:45] LABS: D Dimer 0.27 ug/mL (<0.48)
[2023-12-12 00:46] LABS: Partial Thromboplastin Time 31.3 SECONDS (22.3-36.8); Prothrombin Time 13.2 Seconds (11.1-14.7)
[2023-12-12 00:54] LABS: Magnesium 2.1 mg/dL (1.6-2.3)
--- NOTE | 2023-12-12 01:02 | PC.NURSE ---
Patient taken to CT at this time.
[2023-12-12 02:55] LABS: Troponin I < 0.012 ng/mL (0.000-0.034)
== END 2023-12-12 03:11 | disposition home or self-care (01) ==
PROVIDERS: Emergency Provider Physician Assistant; PCP Family Medicine
DX: R07.9 Chest pain, unspecified (principal); E87.6 Hypokalemia; J45.909 Unspecified asthma, uncomplicated; I10 Essential (primary) hypertension; F17.210 Nicotine dependence, cigarettes, uncomplicated
CPT/HCPCS: 36415; 70450; 71046; 80053; 83690; 83735; 84484; 85025; 85380; 85610; 85730; 93005; 96360; 99284; A9270; J7030

== ENCOUNTER 2023-12-14 12:20 | Outpatient (CLI) | payer OTHER, SELFPAY ==
[2023-12-14 12:42] LABS: Basophils Percent Auto 0.3 % (0.2-1.2); Eosinophils Absolute Auto 0.2 K/mm3 (0-0.3); Eosinophils Percent Auto 1.7 % (0-4.4); Hematocrit 38.4 % (37.0-47.0); Hemoglobin 13.1 g/dL (12.0-15.0); Immature Granulocyte Absolute 0.03 K/mm3 (0.00-0.031); Immature Granulocyte Percent A 0.3 % (0-0.5); Lymphocytes Absolute Auto 2.58 K/mm3 (0.9-3.2); Lymphocytes Percent Auto 29.3 % (18.3-44.2); Mean Corpuscular HGB Conc 34.1 g/dl (32-36); Mean Corpuscular Hemoglobin 31.4 pg (26-34); Mean Corpuscular Volume 92.1 fl (80-100); Mean Platelet Volume 8.9 fl (7.4-10.4); Monocytes Absolute Auto 0.4 K/mm3 (0.1-0.6); Neutrophils Absolute Auto 5.6 K/mm3 (1.3-6.7); Neutrophils Percent Auto 63.4 % (45.5-73.1); Platelet Count Result 389 k/mm3 (150-375); Red Blood Count 4.17 M/mm3 (4.2-5.4); White Blood Count 8.8 K/mm3 (4.5-10.0)
[2023-12-14 13:34] LABS: Alanine Aminotransferase 37 U/L (6-35); Albumin Level 4.3 g/dL (3.5-5.1); Alkaline Phosphatase 85 U/L (38-126); Anion Gap 9 mmol/L (8-16); Aspartate Amino Transferase 31 U/L (14-36); Bilirubin,Total 0.9 mg/dL (0.2-1.3); Blood Urea Nitrogen 10 mg/dL (7-17); Calcium 9.4 mg/dL (8.4-10.2); Carbon Dioxide 28 mmol/L (22-30); Chloride 103 mmol/L (98-107); Estimated Glomerular Filt Rate > 60; Glucose 101 mg/dL (65-110); Lactate Dehydrogenase 218 U/L (120-246); Potassium 3.3 mmol/L (3.4-5.0); Sodium 140 mmol/L (137-145)
[2023-12-18 18:10] LABS: EBV Nuclear Ab Interpretation Past; EBV Virus Capsid Ag IgM Ab <36.00 U/mL (<36.00)
[2023-12-19 03:52] LABS: Angiotensin Converting Enzyme 15 U/L (9-67)
== END 2023-12-14 12:21 | disposition home or self-care (01) ==
LOC: ANHLAB 12:23
PROVIDERS: PCP Family Medicine; Visit Provider Internal Medicine Hematology & Oncology
DX: D86.9 Sarcoidosis, unspecified (principal); C85.97 Non-Hodgkin lymphoma, unspecified, spleen
CPT/HCPCS: 36415; 80053; 82164; 83615; 85025; 86664; 86665; 88184

== ENCOUNTER 2023-12-22 09:06 | Outpatient (CLI) | payer OTHER, SELFPAY ==
--- NOTE | ~2023-12-22 | PE_ITS ---
EXAMINATION: PET skull to mid thigh DATE: 12/22/2023 11:03 INDICATION: Lymphoma of spleen. TECHNIQUE: Blood glucose level was 103 mg/dL. 10.569 mCi of 18-fluorodeoxyglucose (18-FDG) was admini stered i.v. Low dose computed tomography (CT) images were acquired from the base of the brain to the proximal thighs for attenuation correction and anatomic localization. Automated exposure control was employed. Dose-length product (DLP) was 1209 mGy-cm. Positron emission tomography (PET) images were a cquired in the same distribution. COMPARISON: CT abdomen 12/01/23 FINDINGS: Head/neck: There are no pathologically enlarged lymph nodes. There are normal-sized bilateral interna l jugular chain lymph nodes with maximum SUV of 5.2. Chest: There is mild atelectasis in right lung. No pleural effusion. The heart size is normal. No per icardial effusion. There are normal-sized mediastinal and bilateral hilar lymph nodes with maximum MEEKS V of 4.4. Abdomen/pelvis/proximal thighs: The liver is normal. There is a gallstone in the gallbladder, which i s normal in size. The spleen is normal in size. There is a 5.9 cm mass in the spleen with maximum SUV of 4.7. The pancreas and left adrenal gland are normal. There is a chronic 17 mm mass in right adren al gland without increased activity, likely an adenoma. Right kidney is normal. There is a 3 mm stone in left kidney. There is a widemouthed ventral hernia containing nonobstructed small and large bowel . There are no dilated loops of bowel. There is a chronic 2.3 x 1.6 cm subcutaneous mass in the left lower quadrant abdominal wall with maximum SUV of 3.6. There are no pathologically enlarged lymph nod es. There is a normal-sized right inguinal lymph node with maximum SUV of 4.2. There is no free intra peritoneal fluid. There is no osseous malignancy. IMPRESSION: 1. Splenic mass with increased activity and normal sized neck, chest, and pelvic lymph nodes with mil dly increased activity suspicious for lymphoma. Ultrasound-guided core needle biopsy of a right ingui nal lymph node is recommended. 2. Chronic 2.3 cm subcutaneous mass in left lower quadrant abdominal wall with mildly increased activ ity, most likely endometriosis in a surgical scar. Ultrasound-guided core needle biopsy is recommende d. Reviewed, dictated and finalized at location A. HERIZATION TECHNICIAN IMPRESSION: 1. Splenic mass with increased activity and normal sized neck, chest, and pelvi c lymph nodes with mildly increased activity suspicious for lymphoma. Ultrasoun d-guided core needle biopsy of a right inguinal lymph node is recommended. 2. Chronic 2.3 cm subcutaneous mass in left lower quadrant abdominal wall with mildly increased activity, most likely endometriosis in a surgical scar. Ultras ound-guided core needle biopsy is recommended.
[2023-12-22 09:28] LABS: Glucose Point of Care 103 mg/dl (65-105)
== END 2023-12-22 09:07 | disposition home or self-care (01) ==
PROVIDERS: PCP Family Medicine; Visit Provider Internal Medicine Hematology & Oncology
DX: C85.97 Non-Hodgkin lymphoma, unspecified, spleen (principal); R19.04 Left lower quadrant abdominal swelling, mass and lump
CPT/HCPCS: 78815; A9552

== ENCOUNTER 2023-12-27 13:53 | Outpatient (CLI) | payer OTHER, SELFPAY ==
[2023-12-27 14:46] LABS: Influenza A QL RT-PCR Negative (Negative); Influenza B QL RT-PCR Negative (Negative); RSV RNA, RT-PCR Negative (Negative); SARS-CoV-2 RNA PCR Negative (Negative)
== END 2023-12-27 13:54 | disposition home or self-care (01) ==
LOC: ANHLAB 13:56
PROVIDERS: PCP Family Medicine; Visit Provider Physician Assistant
DX: J02.9 Acute pharyngitis, unspecified (principal); Z20.822 Contact with and (suspected) exposure to COVID-19
CPT/HCPCS: 87637

== ENCOUNTER 2024-01-11 10:04 | Outpatient (CLI) | payer OTHER, SELFPAY ==
--- NOTE | ~2024-01-11 | US_ITS ---
EXAMINATION: US biopsy st pelvis, US biopsy lymph node DATE: 01/11/2024 12:06 INDICATION: FDG avid right inguinal lymphadenopathy and subcutaneous anterior left pelvic wall mass. TECHNIQUE: The procedure including the risks and benefits was discussed with the patient. Risks discu ssed included bleeding and infection. The patient understood the risks and agreed to proceed. Attenti on was first turned to the left anterior pelvic wall mass. The skin overlying the mass was prepped an d draped in usual sterile fashion. Anesthetic was administered with 1% lidocaine subcutaneously. An 18 gauge core biopsy needle was advanced under continuous ultrasound observation to the lesion of in terest. 3 core biopsy specimens were obtained. The needle was removed and the entry site was cleane d and dressed. Post procedure ultrasound demonstrated no hemorrhage. Attention was then turned to the right inguinal lymph node of concern. [facility] was compared to the prior PET/CT images to identify the specific FDG avid lymph n ode of concern. The skin overlying the right inguinal region was prepped and draped in usual sterile fashion. Anesthetic was administered with 1% lidocaine subcutaneously. An 18 gauge core biopsy needl e was advanced under continuous ultrasound observation to the lesion of interest. 6 core biopsy spec imens were obtained, 3 placed in formalin and 3 in RPMI media. The needle was removed and the entry site was cleaned and dressed. Post procedure ultrasound demonstrated no hemorrhage. FINDINGS: Ultrasound images demonstrate an approximately 3.0 x 1.9 x 1.9 cm spiculated hypoechoic and shadowing mass corresponding in size and location to the lesion identified on the prior imaging. Sub sequent images demonstrate the biopsy needle advanced through the mass. Subsequent images demonstrate biopsy needle advanced through approximately 2.5 x 1.0 cm right inguina l lymph node located slightly medial to the take off of a small artery arising from the common femora l artery and extending into the subcutaneous anterior pelvic fat which corresponds in size and locati on to the FDG avid lesion of concern. IMPRESSION: 1. Successful Ultrasound-guided biopsy of a 3.0 x 1.9 x 1.9 cm spiculated and shadowing subcutaneous mass to the left of midline along a prior section scar. 2. Successful ultrasound-guided biopsy of a 2.5 x 1.0 cm right inguinal lymph node which demonstrated increased FDG uptake on prior PET/CT. Reviewed, dictated and finalized at location A. NG MACHINE TRY OUT SETTER IMPRESSION: 1. Successful Ultrasound-guided biopsy of a 3.0 x 1.9 x 1.9 cm spiculated and s hadowing subcutaneous mass to the left of midline along a prior sectio n scar. 2. Successful ultrasound-guided biopsy of a 2.5 x 1.0 cm right inguinal lymph n ode which demonstrated increased FDG uptake on prior PET/CT.
== END 2024-01-11 10:05 | disposition home or self-care (01) ==
PROVIDERS: PCP Family Medicine; Visit Provider Internal Medicine Hematology & Oncology
DX: R59.0 Localized enlarged lymph nodes (principal); N80.C11 Endometriosis of the anterior abdominal wall, fascia and muscular layers
CPT/HCPCS: 20206; 38505; 76942; 88184; 88305

== ENCOUNTER 2025-05-07 11:56 | Outpatient (CLI) | payer OTHER, SELFPAY ==
--- NOTE | ~2025-05-07 | XR_ITS ---
EXAMINATION: XR shoulder LT min 2V DATE: 05/07/2025 12:20 INDICATION: Left shoulder pain TECHNIQUE: AP internally and externally rotated, AP oblique externally rotated and transscapular Y vi ews of the left shoulder were obtained. COMPARISON: None FINDINGS: Normal alignment. No fracture. Glenohumeral joint is normal. Acromioclavicular joint is normal. Soft tissues are unremarkable. Visualized portions of the lungs are clear. IMPRESSION: Negative left shoulder radiographs. Reviewed, dictated and finalized at location A.
--- OUTSIDE RECORDS SUMMARY | 2025-05-07 12:44 | XMS_ITS | Clinical Summary ---
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 60 tablet 11 05/26/20 18 Active albuterol HFA (PROVENTIL HFA,VENTOLIN HFA,PROAIR HFA) 90 mcg/actuation inhaler Inhale 2 puffs every 4 (four) hours as needed 04/04/20 18 Active chlorthalidone 25 mg tablet Take 1 tablet (25 mg total) by mouth daily Active losartan (COZAAR) 50 mg tablet Take 1 tablet (50 mg total) by mouth daily Active ALPRAZolam (XANAX) 0.25 mg tablet Take 1 tablet (0.25 mg total) by mouth 3 (three) times a day as needed 12/20/19 24 Active amLODIPine (NORVASC) 10 mg tablet Take 1 tablet (10 mg total) by mouth daily Active carvediloL (COREG) 25 mg tablet Take 1 tablet (25 mg total) by mouth 2 (two) times a day with meals Active doxazosin (CARDURA) 4 mg tablet Take 1 tablet (4 mg total) by mouth daily Active ondansetron (ZOFRAN) 4 mg tabletIndications: Nausea Take 1 tablet (4 mg total) by mouth every 8 (eight) hours as needed for nausea 20 tablet 09/28/20 24 Active azithromycin (ZITHROMAX) 250 mg tabletIndications: Pneumonia of right lower lobe due to infectious organism Take 2 tablets the first day, then 1 tablet daily for 4 days. 6 tablet 09/28/20 24 Active Additional Information Patient not taking.Reported on 03/14/2025 irbesartan (AVAPRO) 300 mg tablet Take 1 tablet (300 mg total) by mouth nightly Active hydroCHLOROthiazid e (HYDRODIURIL) 25 mg tablet Take 1 tablet (25 mg total) by mouth daily Active ondansetron ODT (ZOFRAN-ODT) 4 mg disintegrating tablet Take 1 tablet (4 mg total) by mouth every 8 (eight) hours as needed for nausea or vomiting 20 tablet 03/08/20 25 Active traMADoL (ULTRAM) 50 mg tablet Take 1 tablet (50 mg total) by mouth every 6 (six) hours for 12 doses 12 tablet 03/08/[address] (PROTONIX) 20 mg EC tablet Take 1 tablet (20 mg total) by mouth daily 20 tablet 03/08/20 25 026 Active NIFEdipine CC 30 mg 24 hr tablet Take 1 tablet (30 mg total) by mouth daily Per patient: takes only when blood pressure is over 160 02/09/20 25 Active Active Problems Problem Noted Date Diagnosed Date Chest pain 03/14/2025 Severe obesity 03/14/2025 Previous section 06/06/2018 Overview (06/07/2018): - Pt has had 3 previous LTCS in 2008, 2009, 2013. In 2013, it was observed that she had significant adhesions to anterior abdominal wall Chronic hypertension 05/26/2018 Obesity (BMI 30-39.9) 05/26/2018 Encounters Date Type Department Care Team Description 03/14/2025 11:30 AM CDT Office Visit [facility] [address] [place] [phone] Miller Stephens MD Lipid screening (Primary Dx); Chest pain, unspecified type; Essential hypertension; Severe obesity (HCC) 03/08/2025 1:42 PM CDT - 03/08/2025 7:02 PM CDT Emergency [facility] [address] [place] [address] Kelly Dao MD Abdominal pain (Primary Dx); Nausea vomiting and diarrhea; Splenic lesion Discharge Disposition: Discharge to home or self care from Last 3 Months Immunizations Immunization Administration Dates Next Due Influenza, Quadrivalent, Split, Intramuscular Tdap 12/13/2016 Surgical History Surgery Date Site/Laterality Comments OTHER SURGICAL HISTORY 11/21/2008 - 11/20/2009 : OTHER SURGICAL HISTORY 11/21/2009 - 11/20/2010 : OTHER SURGICAL HISTORY 11/21/2011 - 11/20/2012 : spontaneous OTHER SURGICAL HISTORY 11/21/2013 - 11/20/2014 : Medical History Medical History Date Comments Hx Other Medical 2008 ; Comm ents: GDM. FTP.; Outcome: 40 week 9 lb(s) 4 oz Male Hx Other Medical 2009 ; Comm ents: Repeat C/S.; Outcome: 40 week 7 lb(s) 14 oz Male Hx Other Medical 2011 ; Comm ents: No D&C needed.; Outcome: 10 week Unknown sex Hx Other Medical 2013 ; Comm ents: GBS (+). RLTCS with uterus completely adherent to anterior abdominal wall; unable to do BTL. 1300 cc EBL with injury to external uterine wall, repaired.; Outcome: 39 week 7 lb(s) 13 oz Female Hypertension 2017 Losartan, chlort halidone Family History Medical History Relation Name Comments Hypertension Father Stroke Father Breast cancer Maternal Grandmother Cancer , breast; Heart attack Mother Hypertension Mother Stroke Mother Relation Name Status Comments Father Maternal Grandmother Mother Social History Tobacco Use Types Packs/Day Years Used Date Smoking Tobacco: Heavy Smoker Cigarettes 0.5 23.5 Started: 2001 Smokeless Tobacco: Never Alcohol Use Standard Drinks/Week Comments No 0 (1 standard drink = 0.6 oz pur e alcohol) Personal Safety Answer Date Recorded Have you ever been in or are you currently in a harmful physical or emotional relationship or is someone making you feel afraid or unsafe? 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 2008 - GDM. 1' LTCS for a rrest of labor at 3 . [facility]. 2. 2009 - Repeat c/s. [facility]. 3. 2013 - Repeat c/s. Dense adhesions of uterus to anterior abdomen. Unable to perform BTL. [facility]. Last Filed Vital Signs Vital Sign Reading Time Taken Comments Blood Pressure 144/98 03/14/2025 11:21 AM CDT Pulse 103 03/14/2025 11:21 AM CDT Temperature 36.9 C (98.4 F) 03/08/2025 12:51 PM CDT Respiratory Rate 16 03/14/2025 11:21 AM CDT Oxygen Saturation 97% 03/14/2025 11:21 AM CDT Inhaled Oxygen Concentration - - Weight 96.6 kg (213 lb) 03/14/2025 11:21 AM CDT Height 157.5 cm (5' 2) 03/14/2025 11:21 AM CDT Body Mass Index 38.96 03/14/2025 11:21 AM CDT Plan of Treatment Health Maintenance Due Date Last Done Comments Depression Screening 1986 Varicella Vaccines (1 of 2 - 13+ 2-dose series) 1999 Hepatitis B Screening 2004 Regular Well Visit/Exam 18-64 2004 Pneumococcal vaccine <65 (1 of 2 - PCV) 2005 Cervical Cancer Screening 05/26/2019 05/26/2018, 04/2013 Covid-19 Vaccine ( season) 2024 07/31/2021, 07/08/2021 Influenza Vaccine (Season Ended) 2025 08/10/2021, 08/21/2020, 08/18/2019, Additional history exists DTaP/Tdap/Td Vaccine (3 - Td or Tdap) 08/10/2031 08/10/2021, 12/13/2016 Hepatitis C Screening Completed 05/26/2018, 013 HPV Vaccines Aged Out No longer eligi ble based on patient's age to complete this topic Procedures Procedure Name Priority Date/Time Associated Diagnosis Comments POCT LIPID PANEL Routine 03/14/2025 11:2 7 AM CDT Lipid screening ELECTROCARDIOGRAM REPORT Routine 025 11:22 AM CDT Chest pain, unspecified type Essential hypertension CT ABDOMEN PELVIS W CONTRAST ED 03/08/2025 4:13 PM CDT POCT HCG, URINE Routine 03/08/2025 4:05 PM CDT SEPSIS LACTATE WITH REFLEX STAT 03/08/2025 2:48 PM CDT URINALYSIS, MICROSCOPIC ONLY STAT 03/08/2025 1:02 PM CDT URINE CULTURE STAT 03/08/2025 1:02 PM CDT URINALYSIS AND REFLEX TO MICROSCOPIC AND CULTURE STAT 03/08/2025 1:02 PM CDT EGFR STAT 03/08/2025 12:56 PM CDT DIFFERENTIAL AUTO STAT 03/08/2025 12: 56 PM CDT LIPASE STAT 03/08/2025 12:56 PM CDT COMPREHENSIVE METABOLIC PANEL STAT 03/08/2025 12:56 PM CDT CBC WITH AUTO DIFFERENTIAL STAT 03/08/2025 12:56 PM CDT HEPATITIS C ANTIBODY Routine 05/26/2018 2:39 PM CDT with 11 completed weeks gestation care, subsequent , first trimester THINPREP IMAGING PAP AND HPV MRNA E6/E7, CHLAMYDIA/N.GONORRHOEAE Routine 05/26/2018 11:12 AM CDT from Last 3 Months or Most Recently Relevant to Health Maintenance Results * POCT lipid panel (03/14/2025 11:27 AM CDT) Cholesterol, POC 147 mg/dL HDL, POC 41 mg/dL Triglycerides, POC 113 mg/dL LDL Cholesterol POC 84 mg/dL Chol/HDL Ratio, POC 3.6 Non-HDL Cholesterol, POC 106 mg/dL Cholesterol Total, POC 147 mg/dL Capillary blood 03/14/2025 1 1:27 AM CDT Miller Stephens MD POINT OF CARE TEST ORDER SUN Final Result * Electrocardiogram Report (03/14/2025 11:22 AM CDT) Miller Stephens MD ECG ORDERABLES Final Re sult * CT Abdomen Pelvis W Contrast (03/08/2025 4:13 PM CDT) Anatomical Region Laterality Modality Body N/A Computed Tomogra phy 03/08/2025 4:48 PM CDT Narrative 03/08/2025 4:55 PM CDT EXAM DESCRIPTION: CT ABDOMEN PELVIS W CONTRAST REASON FOR STUDY: LLQ abdominal pain, rlq abd pain abdominal bloating and cramping with N/V/D since yesterday. Hx of tubal TECHNIQUE: CT scan of the abdomen and pelvis performed with intravenous and without oral contrast using helical scanning technique with dynamic intravenous contrast injection. Reconstructed coronal and sagittal MPR images reviewed. All images stored on PACS. Automated exposure control was used as a dose optimization technique for this examination. CONTRAST TYPE/DOSE: 100mL of IOVERSOL 350 MG IODINE/ML INTRAVENOUS SYRINGE injected via intravenous COMPARISON: None FINDINGS: LOWER CHEST: No significant pulmonary abnormalities. No effusion. LIVER: Decreased attenuation as seen with fibrofatty changes. GALLBLADDER: No stones identified. No wall thickening or inflammatory changes. BILE DUCTS: No intrahepatic or extrahepatic ductal dilatation. SPLEEN: Normal size. 6.2 cm indeterminate lobulated low-density mass within the posterior aspect of the spleen. PANCREAS: No identified cystic or solid masses. No significant calcifications. No adjacent inflammation or peripancreatic fluid collections. Pancreatic duct not dilated. ADRENALS: Normal. KIDNEYS/URINARY TRACT: No identified significant cystic or solid masses. 3 mm nonobstructing stone left kidney. No obstructing renal or ureteral calculus. No hydronephrosis or hydroureter. Symmetric enhancement. Urinary bladder is unremarkable. GI: No dilated bowel loops. No obvious wall thickening. Normal appendix. Scattered diverticular disease without diverticulitis. PERITONEUM: No ascites or free air. RETROPERITONEUM: No mass or adenopathy. REPRODUCTIVE: No significant abnormality. VASCULATURE: No abdominal aortic aneurysm. MUSCULOSKELETAL: No significant abnormality. OTHER: No other abnormality. IMPRESSION: Fatty infiltration of the liver. 6.2 cm indeterminate lobulated low-density mass within the posterior aspect of the spleen. 3 mm nonobstructing stone left kidney. Diverticulosis. No evidence of diverticulitis. THIS IS AN ELECTRONICALLY VERIFIED FINAL REPORT 03/08/2025 4:55 PM - Electronically signed by Pablo Cavazos M.D. KT: KT Report ID: [id number] Reading Location: [id number] Procedure Note Pablo Cavazos MD - 03/08/2025 EXAM DESCRIPTION: CT ABDOMEN PELVIS W CONTRAST REASON FOR STUDY: LLQ abdominal pain, rlq abd pain abdominal bloating and cramping with N/V/D since yesterday. Hx of tubal TECHNIQUE: CT scan of the abdomen and pelvis performed with intravenousand without oral contrast using helical scanning technique with dynamic intravenous contrast injection. Reconstructed coronal and sagittal MPRimages reviewed. All images stored on PACS. Automated exposure control was usedas a dose optimization technique for this examination. CONTRAST TYPE/DOSE: 100mL of IOVERSOL 350 MG IODINE/ML INTRAVENOUSSYRINGE injected via intravenous COMPARISON: None FINDINGS: LOWER CHEST: No significant pulmonary abnormalities. No effusion. LIVER: Decreased attenuation as seen with fibrofatty changes. GALLBLADDER: No stones identified. No wall thickening or inflammatory changes. BILE DUCTS: No intrahepatic or extrahepatic ductal dilatation. SPLEEN: Normal size. 6.2 cm indeterminate lobulated low-density masswithin the posterior aspect of the spleen. PANCREAS: No identified cystic or solid masses. No significant calcifications. No adjacent inflammation or peripancreatic fluidcollections. Pancreatic duct not dilated. ADRENALS: Normal. KIDNEYS/URINARY TRACT: No identified significant cystic or solid masses.3 mm nonobstructing stone left kidney. No obstructing renal or ureteral calculus. No hydronephrosis or hydroureter. Symmetric enhancement.Urinary bladder is unremarkable. GI: No dilated bowel loops. No obvious wall thickening. Normal appendix. Scattered diverticular disease without diverticulitis. PERITONEUM: No ascites or free air. RETROPERITONEUM: No mass or adenopathy. REPRODUCTIVE: No significant abnormality. VASCULATURE: No abdominal aortic aneurysm. MUSCULOSKELETAL: No significant abnormality. OTHER: No other abnormality. IMPRESSION: Fatty infiltration of the liver. 6.2 cm indeterminate lobulated low-density mass within the posterioraspect of the spleen. 3 mm nonobstructing stone left kidney. Diverticulosis. No evidence of diverticulitis. THIS IS AN ELECTRONICALLY VERIFIED FINAL REPORT 03/08/2025 4:55 PM - Electronically signed by Pablo Cavazos M.D. KT: KM Report ID: [id number] Reading Location: [place] [address] us Kelly Dao MD IMG CT PROCEDURES Final R esult * POCT hCG, urine (03/08/2025 4:05 PM CDT) HCG, ur, POC Negative Negative Lot Number [id number] QC Backgroud Clear Acceptable QC Control Line Acceptable Urine 03/08/2025 4:05 PM CDT us Kelly Dao MD POINT OF CARE TEST ORDERA BLES Final Result * Sepsis Lactate w/ Reflex (03/08/2025 2:48 PM CDT) Sepsis Lactate 1.2 0.7 - 2.0 mmol/L Blood 03/08/2025 2:48 PM CDT 03/08/2025 2:55 PM CDT Kelly Dao MD LAB BLOOD ORDERABLES Vanessa l Result [facility] ([place]) 1 [facility] [place] [address] * (ABNORMAL) Urinalysis reflex to microscopic and culture Urine (03/08/2025 1:02 PM CDT) Color, ur Yellow Yellow Clarity, ur Clear Clear [facility] ([place]) Specific gravity, ur 1.016 1.003 - 1.030 [facility] ([place]) pH, urine 6.5 [facility] ([place]) Comment: Interpretive Data U rine pH is affected by diet, medications, systemic acid-base disturbances, and renal tubular function. pH may affect urinary stone formation. For example, urine pH below 6.0 may help reduce the tendency for calcium phosphate stones and pH greater than 6.0 may reduce the tendency for uric acid stone formation. Source: [facility] [employer] Current Interpretive Data was last revised on 2017 Protein, ur ql 1+(A) Negative [facility] ([place]) Glucose, ur ql Negative Negative [facility] ([place]) Ketones, ur Negative Negative [facility] ([place]) Bilirubin, ur Negative Negative [facility] ([place]) Blood, ur Negative Negative [facility] ([place]) Urobilinogen, ur <2.0 <2.0 mg/dL [facility] ([place]) Nitrite, ur Negative Negative [facility] ([place]) Leukocyte esterase, ur 2+(A) Negative [facility] ([place]) UA reflex comment Reflex to microscopic UA will be performed. [facility] ([place]) Urine 03/08/2025 1:02 PM CDT 03/08/2025 1:04 PM CDT Kelly Dao MD LAB MICROBIOLOGY - GENERA L ORDERABLES Final Result Performing Organization Address [facility]/ZIP Co de Phone Number [facility] ([place]) 1 [facility] Department [place] [address] * (ABNORMAL) Urinalysis, microscopic only (03/08/2025 1:02 PM CDT) WBC, ur 11-20(A) 0 - 5 /HPF RBC, ur 0-2 0 - 2 /HPF [facility] ([place]) Epithelial cells, squamous, ur 1-5 0 - 5 /HPF [facility] ([place]) Mucous, ur Present(A) [facility] ([place]) Hyaline casts, ur 6-10 0 - 10 /LPF [facility] ([place]) Culture Reflex Comment Reflex to urine culture will be performed. [facility] ([place]) Urine 03/08/2025 1:02 PM CDT 03/08/2025 1:04 PM CDT Kelly Dao MD LAB URINE ORDERABLES Vanessa l Result Performing Organization Address [facility]/ZIP Co de Phone Number [facility] ([place]) 1 [facility] Department [place] [address] * Urine culture Urine (03/08/2025 1:02 PM CDT) Report Final Report: Less than 100,000 colonies/mL (clinically insignificant growth based on current clinical standards) Comment:Testing performed by : [facility], [address], [place]., [address] Organism (CLINICALLY INSIGNIFICANT GROWTH [facility] ([place]) Urine 03/08/2025 1:02 PM CDT 03/08/2025 4:30 PM CDT Narrative [facility] ([place]) - 03/09/2025 6:34 PM CDT Urine culture reflexed based upon urinalysis results. Testing performed by [facility] ([phone]) us Dirk Campbell MD LAB MICROBIOLOGY - GENERAL O RDERABLES Final Result [facility] ([place]) 1 [facility] Department [place] [address] * eGFR (03/08/2025 12:56 PM CDT) eGFR >90 >=60 mL/min/1. 73 m2 Comment: Interpretive Data Reference Interval Normal >/= 90 mL/min/1.73m2 Mildly decreased* 60 - 89 mL/min/1.73m2 Mildly to moderately decreased 45 - 59 mL/min/1.73m2 Moderately to severely decreased 30 - 44 mL/min/1.73m2 Severely decreased 15 - 29 mL/min/1.73m2 Kidney Failure < 15 mL/min/1.73m2 *Relative to young adult level Estimated glomerular filtration rate is determined by the 2020 CKD-EPI equation recommended by the National Kidney Foundation (A Unifying Approach to GFR Estimation: Recommendations of the NKF-ASK Task Force on Reassessing the Inclusion of Race in Diagnosing Kidney Disease, JASN 2020). The CKD-EPI equation should not be used for patients with unstable renal function and has not been validated in children and those over 70. Current interpretive data was last reviewed 2021. Blood 03/08/2025 12:5 6 PM CDT 03/08/2025 1:04 PM CDT us Kelly Dao MD LAB BLOOD ORDERABLES Vanessa l Result [facility] ([place]) 1 [facility] [place] [address] * Differential, auto (03/08/2025 12:56 PM CDT) Neutrophil abs 6.26 1.50 - 6.50 K/cumm Imm gran abs 0.04 0.00 - 0.10 K/cumm [facility] ([place]) Lymphocyte abs 2.47 0.80 - 3.30 K/cumm [facility] ([place]) Monocyte abs 0.46 0.20 - 0.80 K/cumm [facility] ([place]) Eosinophil abs 0.22 0.00 - 0.50 K/cumm [facility] ([place]) Basophil abs 0.03 0.00 - 0.10 K/cumm [facility] ([place]) Neutrophil pct 66.0 % [facility] ([place]) Comment: Interpretive Data Percent cell count reference ranges are not reported, since discordance with absolute values may lead to misinterpretation of CBC data. Current Interpretive Data was last revised on 2018. Imm gran pct 0.4 % [facility] ([place]) Comment: Interpretive Data Percent cell count reference ranges are not reported, since discordance with absolute values may lead to misinterpretation of CBC data. Current Interpretive Data was last revised on 2018. Lymphocyte pct 26.1 % [facility] ([place]) Comment: Interpretive Data Percent cell count reference ranges are not reported, since discordance with absolute values may lead to misinterpretation of CBC data. Current Interpretive Data was last revised on 2018. Monocyte pct 4.9 % [facility] ([place]) Comment: Interpretive Data Percent cell count reference ranges are not reported, since discordance with absolute values may lead to misinterpretation of CBC data. Current Interpretive Data was last revised on 2018. Eosinophil pct 2.3 % [facility] ([place]) Comment: Interpretive Data Percent cell count reference ranges are not reported, since discordance with absolute values may lead to misinterpretation of CBC data. Current Interpretive Data was last revised on 2018. Basophil pct 0.3 % [facility] ([place]) Comment: Interpretive Data Percent cell count reference ranges are not reported, since discordance with absolute values may lead to misinterpretation of CBC data. Current Interpretive Data was last revised on 2018. Blood 03/08/2025 12:5 6 PM CDT 03/08/2025 1:04 PM CDT Kelly Dao MD LAB BLOOD ORDERABLES Vanessa l Result [facility] ([place]) 1 [facility] [employer] [place] [address] * (ABNORMAL) CBC with auto differential (03/08/2025 12:56 PM CDT) WBC 9.48 3.80 - 9.90 K/cumm Hgb 12.9 11.9 - 15.5 g/dL [facility] ([place]) Hct 36.8 35.6 - 45.5 % [facility] ([place]) Plt 396 150 - 400 K/cumm [facility] ([place]) MPV 8.8(L) 9.1 - 12.3 fL [facility] ([place]) RBC 4.12 3.90 - 5.20 M/cumm [facility] ([place]) MCV 89.3 81.3 - 96.4 fL [facility] ([place]) MCH 31.3 27.1 - 33.3 pg [facility] ([place]) MCHC 35.1 32.3 - 35.7 g/dL [facility] ([place]) RDW CV 13.5 11.1 - 14.9 % [facility] ([place]) RDW SD 44.1 35.7 - 48.1 fL [facility] ([place]) NRBC abs 0.00 0.00 - 0.01 K/cumm [facility] ([place]) Blood Venous blood specimen / Unknown 03/08/2025 12:56 PM CDT 03/08/2025 1:04 PM CDT us Kelly Dao MD LAB BLOOD ORDERABLES Vanessa l Result [facility] ([place]) 1 [facility] [place] [address] * Lipase (03/08/2025 12:56 PM CDT) Pathologist [facility] Lipase 24 10 - 99 Units/L Comment:[address] ([place]) Blood Venous blood specimen / Unknown 03/08/2025 12:56 PM CDT 03/08/2025 1:04 PM CDT us Kelly Dao MD LAB BLOOD ORDERABLES Vanessa bennett Result [facility] ([place]) 1 [facility] Department [place] [address] * (ABNORMAL) Comprehensive metabolic panel (03/08/2025 12:56 PM CDT) Sodium 140 135 - 145 mmol/L Comment:Berta Rudd ([place]) Potassium, pl 2.8(C) 3.3 - 4.9 mmol/L [facility] ([place]) Comment:Critical Result call ed by [email or web address] at 2025-03-08 13:39:41. Result Read Back by Berta Rudd ([place]) Chloride 100 97 - 110 mmol/L [facility] ([place]) Comment:Berta Rudd ([place]) CO2 27 22 - 32 mmol/L [facility] ([place]) Comment:Berta Rudd ([place]) Anion gap 13 2 - 15 mmol/L [facility] ([place]) Comment:Berta [facility] ([place]) BUN 9 6 - 25 mg/dL [facility] ([place]) Comment:Bertakrista Rudd ([place]) Creatinine 0.78 0.60 - 1.10 mg/dL [facility] ([place]) Comment:Berta [facility] ([place]) Glucose 123 70 - 199 mg/dL [facility] ([place]) Comment: Berta Rudd ([place]) Interpretive Data Fasting glucose >/= 126 mg/dl is diagnostic for diabetes. Fasting is defined as no caloric intake for at least 8 hours. Fasting glucose between 100 mg/dl to 125 mg/dl is diagnostic of prediabetes. In a patient with classic symptoms of hyperglycemia or hyperglycemic crisis, a random glucose >/= 200 mg/dl is diagnostic for diabetes. In the absence of unequivocal hyperglycemia, results should be confirmed by repeat testing. The classification and Diagnosis of Diabetes Diabetes Care 2021; 46: S19-S40. Current interpretive data was last revised 2022. Calcium 9.5 8.5 - 10.3 mg/dL [facility] ([place]) Comment:Berta [facility] ([place]) Bilirubin, total 0.7 0.1 - 1.2 mg/dL [facility] ([place]) Comment:[address] ([place]) Protein, pl 7.5 6.5 - 8.5 g/dL [facility] ([place]) Comment:[address] ([place]) Albumin 4.3 3.5 - 5.0 g/dL [facility] ([place]) Comment:[address] ([place]) Alk phos 103 40 - 130 Units/L [facility] ([place]) Comment:[address] ([place]) ALT 19 7 - 45 Units/L [facility] ([place]) Comment:[address] ([place]) AST 19 10 - 45 Units/L [facility] ([place]) Comment:[address] ([place]) Blood 03/08/2025 12:5 6 PM CDT 03/08/2025 1:04 PM CDT us Kelly Dao MD LAB BLOOD ORDERABLES Vanessa l Result [facility] ([place]) 1 [facility] Department [place] [address] * Hepatitis C antibody (05/26/2018 2:39 PM CDT) Hep C Ab NON-REACTI VE NON-REACTI VE [facility] [place] SIGNAL TO CUT-OFF 0.01 <1.00 [facility] [place] Blood specimen (specimen) 05/26/2018 2:39 PM CDT 05/26/2018 2:42 PM CDT Narrative Resulting Agency Comment Performing Organization Information: Site ID: [place] Name: [facility] Address: [address] [place] [address] Director: Zack Westfall D.O., MPH us Kendy Coffman MD LAB MICROBIOLOGY - NERAL ORDERABLES Final Result [facility] - [place] * ThinPrep Imaging Pap and HPV mRNA E6/E7, Chlamydia/N.Gonorrhoeae (05/26/2018 11:12 AM CDT) Report status CANCELED [facility] [place] Comment:Result canceled by t he ancillary CLINICAL INFORMATION: [facility] [place] LMP 03/05/18 [facility] - Previous Pap NONE GIVEN [facility] [place] Prev. Bx NONE GIVEN [facility] [place] SOURCE: [facility] [place] Comment:Cervix, Endocervix Pap, specimen adequacy [facility] - Comment: Satisfactory for evaluation. Endocervical/transformation zone component absent. Pap, general categorization [facility]CELED [facility] [place] Comment:Result canceled by t he ancillary HPV interp [facility] [place] Comment:Negative for intraep ithelial lesion or malignancy. Infection: CANCELED [facility] [place] Comment:Result canceled by t he ancillary COMMENTS [facility] [place] Comment: This Pap test has been evaluated with computer assisted technology. Program Eligibility Specialist [facility] - Comment: BLG, CT(ASCP) CT screening location: [place] [address] [place] [address] Review leach tank tender CANCELED [facility] - Comment:Result canceled by t he ancillary Pathologist [facility] [place] Comment:Result canceled by t he ancillary Comment [facility] - Comment: EXPLANATORY NOTE: The Pap is a screening test for cervical cancer. It is not a diagnostic test and is subject to false negative and false positive results. It is most reliable when a satisfactory sample, regularly obtained, is submitted with relevant clinical findings and history, and when the Pap result is evaluated along with historic and current clinical information. Human papillomavirus RNA, High Risk E6/E7 Not Detected Not Detected [facility] [place] Comment: This test was performed using the APTIMA HPV Assay ([employer] This assay detects E6/E7 viral messenger RNA (mRNA) from 14 high-risk HPV types (16,18,31,33,35,39,45,51,52,56,58,59,66,68). The analytical performance characteristics of this assay have been determined by [facility]. The modifications have not been cleared or approved by the FDA. This assay has been validated pursuant to the CLIA regulations and is used for clinical purposes. C. trachomatis RNA NOT DETECTED NOT DETECTED [facility] - N. gonorrhoeae RNA NOT DETECTED NOT DETECTED [facility] [place] Comment [facility] - Comment: This test was performed using the APTIMA COMBO2 Assay ([employer] The analytical performance characteristics of this assay, when used to test SurePath specimens have been determined by [facility]. 05/26/2018 11:1 2 AM CDT 05/30/2018 5:02 AM CDT Narrative Resulting Agency Comment Performing Organization Information: Site ID: [id number] Name: [facility] Address: [address] [address] Director: Zack Westfall D.O., MPH Site ID: [id number] Name: [facility] Address: [address] [place] [address] Director: John Richardson Kendy Coffman MD LAB PATHOLOGY ORDERAB LES Final Result [facility] [place], [place] [facility] [place] DAVID from Last 3 Months or Most Recently Relevant to Health Maintenance Insurance [facility] IDPA NICOLE JAYATERRENCE CIGMISAEL LAKETERRENCE Care Teams Refrigerated National Truck Driver Relationship Specialty Start Date End Date Elsa Marcial MD [address] [facility] [address] [place] [address] PCP - General Family Medicine 09/28/24
--- OUTSIDE RECORDS SUMMARY | 2025-05-07 12:44 | XMS_ITS | Continuity of Care Document ---
Author Organization [facility] Address [address] [place] [address] Phone Care Team Providers Care Medical Coordinator Pesticide Use Name Role Phone Unavailable Unavailable Unavailable Advance Directives Directive Yes / No Effective Date File Name No Information Encounters Encounter Description Practice Location Reason(s) For Visit Diagnoses Date Provider Providers Copied on Encounter [facility], [address] [facility], [place], [place], [id number] , [place] tel: [phone] [facility] OUT[facility] No Information No Information Referring Provider: ANGEL NEW, [address], [place], [address]. tel:[phone] Family History Family Member Type Diagnosis Age At Onset No Information Payers Payer name Insurance type Covered republican ID Authoriza ticoy(s) [facility] [id number] Social History Type Description Quantity Date Captured Comments Sex Female Smoking Status No Information Chief Complaint And Reason For Visit No Information History Of Present Illness Encounter Date Complaint History Of Prese nt Illness No Information Instructions Date Instruction Additional Infor mation No Information Assessments Type Assessment Date No Information
--- OUTSIDE RECORDS SUMMARY | 2025-05-07 12:44 | XMS_ITS | Referral Summary ---
Author Organization [facility] [address] Address [address] [place] [address] Phone Care Team Providers Care Gang Vibrator Operator Name Role Phone Elsa Marcial MD Primary Care Provider Encounters Date Type Department Care Team Description 03/14/2025 11:30 AM CDT Office Visit [facility] Cardiology [address] [place] [phone] Miller Stephens MD Lipid screening (Primary Dx); Chest pain, unspecified type; Essential hypertension; Severe obesity (HCC) 03/08/2025 1:42 PM CDT - 03/08/2025 7:02 PM CDT Emergency [facility] Emergency Department [address] [place] [id number] Kelly Dao MD Abdominal pain (Primary Dx); Nausea vomiting and diarrhea; Splenic lesion Discharge Disposition: Discharge to home or self care from Last 3 Months Allergies Active Allergy Reactions Criticality Noted Date [...] Chronic hypertension 05/26/2018 Obesity (BMI 30-39.9) 05/26/2018 Immunizations Immunization Administration Dates Next Due Influenza, Quadrivalent, Split, Intramuscular Tdap 12/13/2016 Social History Tobacco Use Types Packs/Day Years [...] on file Legal Sex 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 KT: KM Report ID: [id number] Reading Location: [id number] Procedure Note Pablo Cavazos MD - 03/08/2025 [...] Pablo Cavazos M.D. KT: KT Report ID: [id number] Reading Location: [place] [address] us Kelly Dao MD IMG CT PROCEDURES Final R esult * POCT hCG, urine (03/08/2025 4:05 PM CDT) Pathologist [facility] HCG, ur, POC Negative Negative Lot Number [id number] QC Backgroud Clear Acceptable QC Control Line Acceptable Urine 03/08/2025 4:05 PM CDT us Kelly Dao MD POINT OF CARE TEST ORDERA BLES Final Result * Sepsis Lactate w/ Reflex (03/08/2025 2:48 PM CDT) [facility] Sepsis Lactate 1.2 0.7 - 2.0 mmol/L Blood 03/08/2025 2:48 PM CDT 03/08/2025 2:55 PM CDT us Kelly Dao MD LAB BLOOD ORDERABLES Vanessa l Result [facility] [place] [facility] Department [place] [address] * (ABNORMAL) Urinalysis reflex to microscopic and [...] tendency for uric acid stone formation. Source: [facility] Current Interpretive Data was last revised on 2017 Protein, ur ql 1+(A) Negative [facility] ([place]) Glucose, ur ql Negative Negative [facility] ([place]) Ketones, ur Negative Negative [facility] ([place]) Bilirubin, ur Negative Negative [facility] ([place]) Blood, ur Negative Negative [facility] ([place]) Urobilinogen, ur <2.0 <2.0 mg/dL [facility] ([place]) Nitrite, ur Negative Negative [facility] ([place]) Leukocyte esterase, ur 2+(A) Negative [facility] ([place]) UA reflex comment Reflex to microscopic UA will be performed. [facility] ([place]) Urine 03/08/2025 1:02 PM CDT 03/08/2025 1:04 PM CDT us Kelly Dao MD LAB MICROBIOLOGY - GENERA L ORDERABLES Final Result [facility] ([place]) [address] [facility] Department [place] [address] * (ABNORMAL) Urinalysis, microscopic only (03/08/2025 1:02 PM CDT) WBC, ur 11-20(A) 0 - 5 /HPF RBC, ur 0-2 0 - 2 /HPF [facility] ([place]) Epithelial cells, squamous, ur 1-5 0 - 5 /HPF [facility] ([place]) Mucous, ur Present(A) [facility] ([place]) Hyaline casts, ur 6-10 0 - 10 /LPF [facility] ([place]) Culture Reflex Comment Reflex to urine culture will be performed. [facility] ([place]) Urine 03/08/2025 1:02 PM CDT 03/08/2025 1:04 PM CDT Kelly Dao MD LAB URINE ORDERABLES Vanessa l Result Performing Organization Address City/[facility]/ZIP Co de Phone Number [facility] ([place]) 1 [facility] Department [place] [address] * Urine culture Urine (03/08/2025 1:02 PM CDT) Report Final Report: Less than 100,000 colonies/mL (clinically insignificant growth based on current clinical standards) Comment:Testing performed by : [facility], [address] [place]., [address] Organism (CLINICALLY INSIGNIFICANT GROWTH MARGOFORMERLY NAMED [facility] ([place]) Urine 03/08/2025 1:02 PM CDT 03/08/2025 4:30 PM CDT Narrative [facility] ([place]) - 03/09/2025 6:34 PM CDT Urine culture reflexed based upon urinalysis results. Testing performed by [facility] Microbiology Laboratory ([phone]) us Dirk Campbell MD LAB MICROBIOLOGY - GENERAL O RDERABLES Final Result Performing Organization Address City/[facility]/ZIP Co de Phone Number [facility] ([place]) [address] [facility] [employer] [place] [address] * eGFR (03/08/2025 12:56 PM CDT) eGFR [...] LAB BLOOD ORDERABLES Vanessa bennett Result [facility] ([place]) [address] [facility] Department [place] [address] * Differential, auto (03/08/2025 12:56 PM CDT) [...] LAB BLOOD ORDERABLES Vanessa bennett Result [facility] ([place]) [address] [facility] Department [place] [address] * (ABNORMAL) CBC with auto differential (03/08/2025 [...] ([place]) MCV 89.3 81.3 - 96.4 fL [facility] ([place]) MCH 31.3 27.1 - 33.3 pg [facility] ([place]) MCHC 35.1 32.3 - 35.7 g/dL [facility] ([place]) RDW CV 13.5 11.1 - 14.9 % [facility] ([place]) RDW SD 44.1 35.7 - 48.1 fL [facility] ([place]) NRBC abs 0.00 0.00 - 0.01 K/cumm [facility] ([place]) Blood Venous blood specimen / Unknown 03/08/2025 12:56 PM CDT 03/08/2025 1:04 PM CDT Kelly Dao MD LAB BLOOD ORDERABLES Vanessa l Result [facility] ([place]) [address] [facility] [place] [address] * Lipase (03/08/2025 12:56 PM CDT) Pathologist [facility] Lipase 24 10 - 99 Units/L Comment:Bertakrista Rudd (ER) Blood Venous blood specimen / Unknown 03/08/2025 12:56 PM CDT 03/08/2025 1:04 PM CDT Kelly Dao MD LAB BLOOD ORDERABLES Vanessa l Result [facility] ([place]) 1 [facility] [employer] [place] [address] * (ABNORMAL) Comprehensive metabolic panel (03/08/2025 12:56 PM CDT) Pathologist [facility] Sodium 140 135 - 145 mmol/L Comment:Bertakrista Rudd (ER) Potassium, pl 2.8(C) 3.3 - 4.9 mmol/L [facility] ([place]) Comment:Critical Result call ed by [email or web address] at 2025-03-08 13:39:41. Result Read Back by Berta Rudd (ER) Chloride 100 97 - 110 mmol/L [facility] ([place]) Comment:[facility] (ER) CO2 27 22 - 32 mmol/L [facility] ([place]) Comment:[facility] (ER) Anion gap 13 2 - 15 mmol/L [facility] ([place]) Comment:[facility] (ER) BUN 9 6 - 25 mg/dL [facility] ([place]) Comment:[facility] (ER) Creatinine 0.78 0.60 - 1.10 mg/dL [facility] ([place]) Comment:[facility] (ER) Glucose 123 70 - 199 mg/dL [facility] ([place]) Comment: [facility] (ER) Interpretive Data Fasting glucose >/= 126 [...] 2022. Calcium 9.5 8.5 - 10.3 mg/dL [facility] ([place]) Comment:[facility] (ER) Bilirubin, total 0.7 0.1 - 1.2 mg/dL [facility] ([place]) Comment:[facility] (ER) Protein, pl 7.5 6.5 - 8.5 g/dL [facility] ([place]) Comment:[facility] (ER) Albumin 4.3 3.5 - 5.0 g/dL [facility] ([place]) Comment:[facility] (ER) Alk phos 103 40 - 130 Units/L [facility] ([place]) Comment:[facility] (ER) ALT 19 7 - 45 Units/L [facility] ([place]) Comment:[facility] (ER) AST 19 10 - 45 Units/L [facility] ([place]) Comment:[facility] (ER) Blood 03/08/2025 12:5 6 PM CDT 03/08/2025 1:04 PM CDT us Kelly Dao MD LAB BLOOD ORDERABLES Vanessa l Result [facility] ([place]) [facility] Department [place] [address] * Hepatitis C antibody (05/26/2018 2:39 PM CDT) Hep C Ab NON-REACTI VE NON-REACTI VE [facility] [place] SIGNAL TO CUT-OFF 0.01 <1.00 [facility] [place] Blood specimen (specimen) 05/26/2018 2:39 PM CDT 05/26/2018 2:42 PM CDT Narrative Resulting Agency Comment Performing Organization Information: Site ID: [id number] Name: [facility] Address: [address] [place] [address] Director: Zack Westfall D.O., MPH Kendy Coffman MD LAB MICROBIOLOGY - GE NERAL ORDERABLES Final Result [facility] [place] * ThinPrep Imaging Pap and HPV mRNA E6/E7, Chlamydia/N.Gonorrhoeae (05/26/2018 11:12 AM CDT) Report status [facility]CELED [facility] [place] Comment:Result canceled by t he ancillary CLINICAL INFORMATION: [facility] [place] LMP 03/05/18 [facility] [place] Previous Pap NONE GIVEN [facility] [place] Prev. Bx NONE GIVEN [facility] [place] SOURCE: [facility] [place] Comment:Cervix, Endocervix Pap, specimen adequacy [facility] [place] Comment: Satisfactory for evaluation. Endocervical/transformation zone component absent. Pap, general categorization [facility]ED [facility] [place] Comment:Result canceled by t he ancillary HPV interp [facility] [place] Comment:Negative for intraep ithelial lesion or malignancy. Infection: [facility]CELED [facility] [place] Comment:Result canceled by t he ancillary COMMENTS [facility] [place] Comment: This Pap test has been evaluated with computer assisted technology. Lead Section Supervisor [facility] - Comment: BLG, CT(ASCP) CT screening location: [place] [address] [place] [address] Review director of retention [facility]CELED [facility] [place] Comment:Result canceled by t jelena ancillary Pathologist [facility] [place] Comment:Result canceled by t he ancillary Comment [facility] [place] Comment: EXPLANATORY NOTE: The Pap is a [...] High Risk E6/E7 Not Detected Not Detected [facility] [place] Comment: This test was performed using the APTIMA HPV Assay ([employer] This assay detects E6/E7 viral messenger RNA (mRNA) from 14 high-risk HPV types (16,18,31,33,35,39,45,51,52,56,58,59,66,68). The analytical performance characteristics of this assay have been determined by [facility]. The modifications have not been cleared or approved by the FDA. This assay has been validated pursuant to the CLIA regulations and is used for clinical purposes. C. trachomatis RNA NOT DETECTED NOT DETECTED [facility] [place] N. gonorrhoeae RNA NOT DETECTED NOT DETECTED [facility] [place] Comment [facility] [place] Comment: This test was performed using the APTIMA COMBO2 Assay ([employer] The analytical performance characteristics of this assay, when used to test SurePath specimens have been determined by [facility]. 05/26/2018 11:1 2 AM CDT 05/30/2018 5:02 AM CDT Narrative Resulting Agency Comment Performing Organization Information: Site ID: [id number] Name: [facility] Address: [address] [place] [address] Director: Zack Westfall D.O., MPH Site ID: [id number] Name: [facility] Address: [address] [place] [address] Director: John Richardson us Kendy Coffman MD LAB PATHOLOGY ORDERAB LES Final Result [facility] - [place], [place] [facility] [place], DAVID from Last 3 Months or Most Recently Relevant to Health Maintenance Insurance [facility] IDPA [employer]IGNA ALLEGIANCE NICOLE LAGUNAS Care Teams Gang Vibrator Operator Relationship Specialty Start Date End Date Elsa Marcial MD [address] [facility] [address] [place] [address] PCP - General Family Medicine 09/28/24
--- OUTSIDE RECORDS SUMMARY | 2025-05-07 12:45 | XMS_ITS | Clinical Summary ---
Author Organization [facility] Address [address] [place] [address] Phone Care Team Providers Care Food Service Order Clerk Name Role Phone Bj Rodriguez MD Primary Care Provider [phone] Allergies Active Allergy Reactions Criticality Noted Date Comments Ibuprofen Rash Medium 01/07/2018 Reaction: RASH, Reaction: rash, Medications buPROPion SR (WELLBUTRIN SR) 150 MG TABLET SR 12 HR Take 150 mg by mouth 2 times daily. Active chlorthalidone (HYGROTON) 25 MG Tablet Take 25 mg by mouth daily. Active losartan (COZAAR) 25 MG Tablet Take 25 mg by mouth daily. Active naproxen (NAPROSYN) 500 MG Tablet Take 500 mg by mouth 2 times daily (with meals). Active albuterol (VENTOLIN HFA) 108 (90 Base) MCG/ACT Aerosol Solution take 2 Puffs by inhalation every 4 hours as needed. Active HYDROCHLOROTHIA ZIDE PO Take by mouth. Activ e Escitalopram Oxalate (LEXAPRO PO) Take by mouth. Ac tive irbesartan (AVAPRO) 300 MG Tablet Take 300 mg by mouth. Active NIFEdipine CR (PROCARDIA-XL) 30 MG TABLET SR 24 HR Take 30 mg by mouth daily. 5 Active ALPRAZolam (XANAX) 0.25 MG Tablet Take 0.25 mg by mouth. 4 Active amLODIPine (NORVASC) 10 MG Tablet Take 10 mg by mouth daily. Active carvedilol (COREG) 25 MG Tablet Take 25 mg by mouth. Active hydrALAZINE 25 MG Tablet TAKE 1 TABLET BY MOUTH THREE TIMES DAILY NEEDED FOR ELEVATED BLOOD PRESSURE 5 Active Active Problems No known active problems Encounters Date Type Department Care Team Description 03/08/2025 11:25 AM CDT Urgent Care Visit [facility] [address] [place] [address] Maryan Cormier, FRUIT LOADER MACHINE OPERATOR, BIG DATA HADOOP DEVELOPER Nausea and vomiting, unspecified vomiting type (Primary Dx); Right lower quadrant abdominal pain Discharge Disposition: Discharged to home or Selfcare 03/08/2025 Travel from Last 3 Months Family History Medical History Relation Name Comments Heart Attack Mother Other-comment Mother ANEURYSM Stroke Mother Relation Name Status Comments Mother Social History Tobacco Use Types Packs/Day Years Used Date Smoking Tobacco: Every Day Cigarettes 0.3 7 Smokeless Tobacco: Never Tobacco Cessation:Ready to Q uit: Not Asked; Counseling Given: Not Answered Alcohol Use Standard Drinks/Week Comments Not Currently 0 (1 standard drink = 0.6 oz pur e alcohol) Sexually Active Control Partners Comments Yes Comments No Sex and Gender Information Value Date Recorded Sex Assigned at Not on file Legal Sex Female 9:19 PM CDT Gender Identity Not on file Sexual Orientation Not on file Last Filed Vital Signs Vital Sign Reading Time Taken Comments Blood Pressure 154/88 03/08/2025 11:29 AM CDT Pulse 117 03/08/2025 11:29 AM CDT Temperature 36.6 C (97.9 F) 03/08/2025 11:29 AM CDT Respiratory Rate 18 03/08/2025 11:29 AM CDT Oxygen Saturation 99% 03/08/2025 11:29 AM CDT Inhaled Oxygen Concentration - - Weight - - Height - - Body Mass Index - - Plan of Treatment Health Maintenance Due Date Last Done Comments Hepatitis C Virus (HCV) Screening 1986 Human Papillomavirus (HPV) Immunization (1 - 3-dose series) 2001 Hepatitis B Immunization (1 of 3 - 19+ 3-dose series) 2005 Pneumococcal Immunization Combined (1 of 2 - PCV) 2005 Pap Smear 2007 Cervical Cancer Screening (CCS) 2016 HPV/Cotest 2016 SARS-COV-2 Immunization ( season) 2024 07/31/2021, 07/08/2021 Influenza Immunization (Season Ended) 2025 08/10/2021, 08/21/2020, 08/18/2019, Additional history exists Respiratory Syncytial Virus (RSV) Immunization (Adult) (1 - 1-dose 75+ series) 2061 DTaP/Tdap/Td Immunization Discontinued 08/10/2021, TdaP Immunization Completed 08/10/2021, 12/13/2016 Meningococcal Immunization (ACWY) Aged Out No longer eligible based on patient's age to complete this topic Rotavirus Immunization Aged Out No lo nger eligible based on patient's age to complete this topic Procedures Procedure Name Priority Date/Time Associated Diagnosis Comments POC INFLUENZA A AND B BY MOLECULAR Routine 03/08/2025 11:40 AM CDT Nausea and vomiting, unspecified vomiting type from Last 3 Months Results * POC INFLUENZA A AND B BY MOLECULAR (03/08/2025 11:40 AM CDT) INFLUENZA A RNA Negative Negative, Invalid INFLUENZA B RNA Negative Negative, Invalid PROCEDURE CONTROL Valid 03/08/2025 11:4 0 AM CDT Maryan Cormier FRUIT LOADER MACHINE OPERATOR, BIG DATA HADOOP DEVELOPER POINT OF CARE TESTI NG (MANUAL) Final Result from Last 3 Months Insurance [employer] Care Teams Food Service Order Clerk Relationship Specialty Start Date End Date Bj Rodriguez MD [address] [place] [address] PCP - General Internal Medicine 01/03/17
--- OUTSIDE RECORDS SUMMARY | 2025-05-07 12:45 | XMS_ITS | Clinical Summary ---
Author Organization [facility] Address [address] [place] [phone] Phone Care Team Providers Care Site Engineer Name Role Phone Elsa Marcial MD Primary Care Provider [phone] Allergies Active Allergy Reactions Criticality Noted Date Comments Ibuprofen Rash Low 01/23/2021 Medications carvediloL (COREG) 25 mg tablet Take 25 mg by mouth 2 times daily with meals. Active doxazosin (CARDURA) 4 mg tablet Take 4 mg by mouth daily. Active POTASSIUM CHLORIDE ORAL Take by mouth. Active amLODIPine (NORVASC) 10 mg tablet Take 10 mg by mouth daily. Active BUPROPION HCL ORAL Take by mouth. Active ALPRAZolam (XANAX) 0.25 mg tablet Take 0.25 mg by mouth 3 times daily as needed. 12/20/2023 Active Active Problems Problem Noted Date Diagnosed Date Hypokalemia 02/10/2021 Cigarette dependence 01/23/2021 Immunizations Immunization Administration Dates Next Due (ADACEL/BOOSTRIX)(10 YR UP) TDAP VACCINE, 0.5ML, IM 12/13/2016 INFLUENZA VACCINE QUADRIVALENT 6 MOS UP IM 12/13 Family History Medical History Relation Name Comments No Known Problems Brother No Known Problems Daughter 1 No Known Problems Daughter 2 Heart Attack Father Unknown Maternal Grandfather Dementia Maternal Grandmother Aneurysm Mother Heart Attack Mother Unknown Paternal Grandfather No Known Problems Paternal Grandmother Multiple Sclerosis Sister No Known Problems Son 1 No Known Problems Son 2 Relation Name Status Comments Brother Alive Daughter 1 Alive Daughter 2 Alive Father Alive Maternal Grandfather Maternal Grandmother Alive Mother Alive Paternal Grandfather Paternal Grandmother Alive Sister Alive Son 1 Alive Son 2 Alive Social History Tobacco Use Types Packs/Day Years Used Date Smoking Tobacco: Every Day Cigarettes Smokeless Tobacco: Never Alcohol Use Standard Drinks/Week Comments Not Currently 0 (1 standard drink = 0.6 oz pur e alcohol) Comments No Sex and Gender Information Value Date Recorded Sex Assigned at Not on file Legal Sex Female 3:19 PM CDT Gender Identity Not on file Sexual Orientation Not on file Last Filed Vital Signs Vital Sign Reading Time Taken Comments Blood Pressure 189/126 01/17/2024 9:13 AM BILLER did not take blood pressure medication this morning. Pulse 103 01/17/2024 9:11 AM BILLER Temperature 36.7 C (98 F) 01/17/2024 9:11 AM BILLER Respiratory Rate 14 01/17/2024 9:11 AM BILLER Oxygen Saturation 97% 01/17/2024 9:1 1 AM BILLER Inhaled Oxygen Concentration - - Weight 94.2 kg (207 lb 9.6 oz) 01/17/2024 9:11 AM BILLER Height 160 cm (5' 3) 12/14/2023 11:28 AM BILLER Body Mass Index 36.77 12/14/2023 11:28 AM BILLER Plan of Treatment Health Maintenance Due Date Last Done Comments HEPATITIS B VACCINES (1 of 3 - 19+ 3-dose series) 2005 HPV/Cotest (21-29) 2007 CERVICAL CANCER SCREENING 2016 HPV/Cotest (30-65) 2016 PAP SMEAR 2016 INFLUENZA VACCINE (#1) 2024 12/13/2016 DTAP/TDAP/TD VACCINES (2 - T d or Tdap) 12/13/2026 12/13/2016 HPV VACCINES Aged Out No longer eligi ble based on patient's age to complete this topic Insurance [employer]LE[employer] OPEN ACCESS [employer] [facility] Care Teams Site Engineer Relationship Specialty Start Date End Date Elsa Marcial MD [address] [facility] [address] [place] [address] PCP - General Family Practice 12/14/23
--- OUTSIDE RECORDS SUMMARY | 2025-05-07 12:45 | XMS_ITS | Clinical Summary ---
Author Organization [facility] Address [address] [facility] [place] [address] Care Team Providers Care Cheese Pancake Roller Name Role Phone Melodie Barrera Primary Care Provider [phone] Source Comments [facility],non-[facility]ates and Associated Physician Practices is amultiple site organization consisting of ambulatory clinics and hospital sitesin [place], [place], [place] and [place]. This disclosure is being madepursuant to the Care Everywhere program and may not contain all information available regarding this patient. Last updated 18.[facility] Allergies Active Allergy Reactions Criticality Noted Date Comments Ibuprofen Rash Medium 01/07/2018 Medications * Be aware that medications may not be up to date on this document. Alwaysverify current medications with the patient. chlorthalidone (HYGROTON) 25 MG tablet Take 25 mg by mouth once daily Active losartan (COZAAR) 50 MG tablet Take 50 mg by mouth once daily Active benzonatate (TESSALON) 100 MG capsuleIndicatio ns:Cough Take 1-2 caps po TID prn for cough Reasons: Cough 30 capsule 8 Active cetirizine (ZYRTEC) 10 MG tabletIndication s:Right acute serous otitis media, recurrence not specified Take 1 tablet by mouth once daily 30 tablet 8 Active albuterol HFA (PROVENTIL;VLAD RICK;PROAIR) 108 (90 BASE) MCG/ACT inhalerIndicatio ns:Acute bronchitis, unspecified organism Inhale 2 puffs by mouth every 4 hours as needed for Wheezing 1 Inhaler 8 Active Social History Tobacco Use Types Packs/Day Years Used Date Smoking Tobacco: Every Day Smokeless Tobacco: Never Comments No Sex and Gender Information Value Date Recorded Sex Assigned at Not on file 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 Gender Identity Not on file Sexual Orientation Not on file Last Filed Vital Signs Vital Sign Reading Time Taken Comments Blood Pressure 134/80 04/04/2018 9:36 AM CDT Pulse 97 04/04/2018 9:36 AM CDT Temperature 36.7 C (98 F) 04/04/2018 9:36 AM CDT Respiratory Rate 16 04/04/2018 9:36 AM CDT Oxygen Saturation 98% 04/04/2018 9:36 AM CDT Inhaled Oxygen Concentration - - Weight 90.7 kg (200 lb) 04/04/2018 9:36 AM CDT Height 157.5 cm (5' 2) 04/04/2018 9:36 AM CDT Body Mass Index 36.58 04/04/2018 9:36 AM CDT Plan of Treatment Health Maintenance Due Date Last Done Comments HIV SCREENING 2001 HEPATITIS C SCREENING 04/19/2004 DTAP/TDAP/TD VACCINES (1 - Tdap) 2005 HEPATITIS B VACCINE (1 of 3 - 19+ 3-dose series) 2005 PNEUMOCOCCAL VACCINE (1 of 2 - PCV) 2005 PAP SMEAR 2007 COVID-19 VACCINE (1 - 2023-2 5 season) 2024 DEPRESSION SCREENING 11/21/2024 INFLUENZA VACCINE (Season Ended) 2025 12/13/19 17 ZOSTER VACCINE (1 of 2) 2036 HIB VACCINE Aged Out No longer eligi ble based on patient's age to complete this topic HPV VACCINE Aged Out No longer eligi ble based on patient's age to complete this topic MENINGOCOCCAL (Group B) VACC INE SHARED DECISION-MAKING Aged Out No longer eligibl e based on patient's age to complete this topic MENINGOCOCCAL GROUPS A/C/Y/W VACCINE Aged Out No longer eligible b ased on patient's age to complete this topic Insurance [facility] SELF PAY NO INSURANCE Member Subscriber Plan / Payer (Ef fective for All Dates) Name:Dior Larson Member ID:Not on file Relation to Subscriber:Not on file Name:DIOR LARSON Subscriber ID:Not on file Address: [address] [place] [address] Payer ID:Not on file Group ID:Not on file Type:Self Pay Address: [place], [place] [address] SELF PAY NO INSURANCE Member Subscriber Plan / Payer (Ef fective for All Dates) Name:Marsha Dior D Member ID:Not on file Relation to Subscriber:Not on file Name:MARSHA,DIOR Subscriber ID:Not on file Address: [address] [place] [address] Payer ID:Not on file Group ID:Not on file Type:Self Pay Address: [place], [place] [address] SELF PAY NO INSURANCE Member Subscriber Plan / Payer (Ef fective for All Dates) Name:Marsha Dior D Member ID:Not on file Relation to Subscriber:Not on file Name:DIOR LARSON Subscriber ID:Not on file Address: [address] [place] [address] Payer ID:Not on file Group ID:Not on file Type:Self Pay Address: [place], [place] Care Teams Cheese Pancake Roller Relationship Specialty Start Date End Date Melodie Barrera PA [address] [place] [id number] PCP - General 04/23/19
== END 2025-05-07 11:57 | disposition home or self-care (01) ==
PROVIDERS: PCP Family Medicine; Visit Provider Physician Assistant
DX: M25.512 Pain in left shoulder (principal); M89.8X1 Other specified disorders of bone, shoulder; W19.XXXA Unspecified fall, initial encounter
CPT/HCPCS: 73030

== ENCOUNTER 2025-06-06 11:27 | Observation (INO) | payer OTHER, SELFPAY ==
[2025-06-06] VITALS (34 sets, daily range): BP systolic 156–211; BP diastolic 93–183; PULSE 85–110; RESP 12–24; TEMP 36.8–37.1; O2SAT 91–100; BMI 36.8
--- NOTE | ~2025-06-06 | XR_ITS ---
Portable chest x-ray Comparison: 12/11/2023 Clinical History: Chest pain Findings: Lungs are clear, without focal consolidation or pleural effusion. Cardiomediastinal silho uette is stable. Bones and soft tissues are unremarkable. Impression: Clear lungs. Reviewed, dictated and finalized at location . Impression: Clear lungs.
--- OUTSIDE RECORDS SUMMARY | 2025-06-06 11:31 | XMS_ITS | Clinical Summary ---
Author Organization [facility] [address] Address [address] [place] [address] Phone Care Team Providers Care Placement Director Name Role Phone Elsa Marcial MD Primary [...] Description 03/14/2025 11:30 AM CDT Office Visit [facility] Cardiology [address] [place] [phone] Miller Stephens MD Lipid screening (Primary Dx); Chest pain, unspecified type; Essential hypertension; Severe obesity (HCC) 03/08/2025 1:42 PM CDT - 03/08/2025 7:02 PM CDT Emergency [facility] Emergency Department [address] [place] [address] Kelly Dao MD Abdominal pain (Primary Dx); [...] on file 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 [facility]. 2. 2009 - Repeat c/s. [place]. 3. 2013 - Repeat c/s. Dense adhesions of uterus to anterior abdomen. Unable to perform BTL. [facility]. Last Filed Vital Signs Vital [...] ( season) 2024 07/31/2021, 07/08/2021 Influenza Vaccine (#1) 2025 , 08/21/2020, 08/18/2019, Additional history exists DTaP/Tdap/Td Vaccine [...] Pablo Cavazos M.D. KT: KT Report ID: [id number] Reading Location: [id number] Procedure Note Pablo Cavazos MD - 03/08/2025 [...] Pablo Cavazos M.D. KT: KM Report ID: [id number] Reading Location: [place] [address] us Kelly Dao MD IMG CT PROCEDURES [...] MD LAB BLOOD ORDERABLES Vanessa l Result [facility] ([place]) [address] [facility] [place] [address] * (ABNORMAL) Urinalysis reflex to microscopic and [...] tendency for uric acid stone formation. Source: [facility] NPC III Current Interpretive Data was last revised on [...] L ORDERABLES Final Result Performing Organization Address [facility]/ZIP Co de Phone Number [facility] ([place]) [address] [facility] [place] [address] * (ABNORMAL) Urinalysis, microscopic only (03/08/2025 1:02 [...] ORDERABLES Vanessa l Result Performing Organization Address [facility]/ZIP Co de Phone Number [facility]ASTA ARAIZA ([place]) [address] [facility] [place] [address] * Urine culture Urine (03/08/2025 1:02 PM CDT) Report Final Report: Less than 100,000 colonies/mL (clinically insignificant growth based on current clinical standards) Comment:Testing performed by : [facility], [address] [facility], [place]., [address] Organism (CLINICALLY INSIGNIFICANT GROWTH [facility] ([place]) Urine 03/08/2025 1:02 PM CDT 03/08/2025 4:30 PM CDT Narrative [facility] ([place]) - 03/09/2025 6:34 PM CDT Urine culture reflexed based upon urinalysis results. Testing performed by [facility] Microbiology Laboratory ([phone]) us Dirk Campbell MD LAB MICROBIOLOGY - GENERAL O RDERABLES Final Result [facility] ([place]) [address] [facility] [place] [address] * eGFR (03/08/2025 12:56 PM CDT) eGFR [...] BLOOD ORDERABLES Vanessa l Result [facility] ([place]) [address] [facility] [place] [address] * Differential, auto (03/08/2025 12:56 PM CDT) [...] Vanessa l Result [facility] ([place]) [address] [facility] [place] [address] [place] [address] * (ABNORMAL) CBC with auto differential (03/08/2025 [...] Vanessa l Result [facility] ([place]) [address] [facility] [place] [address] [place] [address] * Lipase (03/08/2025 12:56 PM CDT) Pathologist [facility] Lipase 24 10 - 99 Units/L Comment:[address] ([place]) Blood Venous blood specimen / Unknown 03/08/2025 12:56 PM CDT 03/08/2025 1:04 PM CDT us Kelly Dao MD LAB BLOOD ORDERABLES Vanessa bennett Result [facility] TEODORA ([place]) 1 [facility] [place] [address] * (ABNORMAL) Comprehensive metabolic panel (03/08/2025 12:56 PM CDT) Sodium 140 135 - 145 mmol/L Comment:Berta Rudd (ER) Potassium, pl 2.8(C) 3.3 - 4.9 mmol/L [facility] ([place]) Comment:Critical Result call ed by [id number] at 2025-03-08 13:39:41. Result Read Back by Berta Rudd (ER) Chloride 100 97 - 110 mmol/L [facility] ([place]) Comment:Berta Rudd (ER) CO2 27 22 - 32 mmol/L [facility] ([place]) Comment:Berta Rudd (ER) Anion gap 13 2 - 15 mmol/L [facility] ([place]) Comment:Berta [facility] (ER) BUN 9 6 - 25 mg/dL [facility] ([place]) Comment:Bertakrista Rudd (ER) Creatinine 0.78 0.60 - 1.10 mg/dL [facility] ([place]) Comment:Berta [facility] (ER) Glucose 123 70 - 199 [...] - 10.3 mg/dL [facility] ([place]) Comment:Berta [facility] (ER) Bilirubin, total 0.7 0.1 - 1.2 mg/dL [facility] ([place]) Comment:[address] (ER) Protein, pl 7.5 6.5 - 8.5 g/dL [facility] ([place]) Comment:[address] ([place]) Albumin 4.3 3.5 - 5.0 g/dL [facility] ([place]) Comment:[address] (ER) Alk phos 103 40 - 130 Units/L [facility] ([place] Comment:[address] ([place]) ALT 19 7 - 45 Units/L [facility] ([place]) Comment:[address] (ER) AST 19 10 - 45 Units/L [facility] ([place]) Comment:[address] (ER) Blood 03/08/2025 12:5 6 PM CDT 03/08/2025 1:04 PM CDT us Kelly Dao MD LAB BLOOD ORDERABLES Vanessa l Result [facility] ([place]) 1 [facility] [place] [address] * Hepatitis C antibody (05/26/2018 2:39 PM CDT) Hep C Ab NON-REACTI VE NON-REACTI VE [facility] [place] SIGNAL TO CUT-OFF 0.01 <1.00 [facility] [place] Blood specimen (specimen) 05/26/2018 2:39 PM CDT 05/26/2018 2:42 PM CDT Narrative Resulting Agency Comment Performing Organization Information: Site ID: [id number] Name: [facility] Address: [address] [address] Director: Zack Westfall D.O., MPH us Kendy Coffman MD LAB MICROBIOLOGY - NERAL ORDERABLES Final Result [facility] [place] * [facility] Pap and HPV mRNA E6/E7, Chlamydia/N.Gonorrhoeae (05/26/2018 11:12 AM CDT) Report status CANCELED [facility] [place] Comment:Result canceled by t he ancillary CLINICAL INFORMATION: [facility] [place] LMP 03/05/18 [facility] - Previous Pap NONE GIVEN [facility] [place] Prev. Bx NONE GIVEN [facility] [place] SOURCE: [facility] [place] Comment:Cervix, Endocervix Pap, specimen adequacy [facility] - Comment: Satisfactory for evaluation. Endocervical/transformation zone component absent. Pap, general categorization CANCELED [facility] [place] Comment:Result canceled by t he ancillary HPV interp [facility] [place] Comment:Negative for intraep ithelial lesion or malignancy. Infection: CANCELED [facility] [place] Comment:Result canceled by t he ancillary COMMENTS [facility] [place] Comment: This Pap test has been evaluated with computer assisted technology. Transportation Maintenance Worker [facility] - Comment: BLG, CT(ASCP) CT screening location: [place] [address] [place] [address] Review lifestyle consultant CANCELED [facility] - Comment:Result canceled by t he ancillary Pathologist CANCELED [facility] [place] Comment:Result canceled by t he ancillary Comment [facility] - Comment: EXPLANATORY NOTE: The Pap [...] High Risk E6/E7 Not Detected Not Detected [facility] [place] Comment: This test was performed using the APTIMA HPV Assay ([employer] This assay detects E6/E7 viral messenger RNA (mRNA) from 14 high-risk HPV types (16,18,31,33,35,39,45,51,52,56,58,59,66,68). The analytical performance characteristics of this assay have been determined by [facility]. The modifications have not been cleared or approved by the FDA. This assay has been validated pursuant to the CLIA regulations and is used for clinical purposes. C. trachomatis RNA NOT DETECTED NOT DETECTED [facility] - N. gonorrhoeae RNA NOT DETECTED NOT DETECTED [facility] [place] Comment [facility] - Comment: This test was performed using the APTIMA COMBO2 Assay ([employer] The analytical performance characteristics of this assay, when used to test [facility] specimens have been determined by [facility]. 05/26/2018 11:1 2 AM CDT 05/30/2018 5:02 AM CDT Narrative Resulting Agency Comment Performing Organization Information: Site ID: [id number] Name: [facility] Address: [address] [address] Director: Zack Westfall D.O., MPH Site ID: [id number] Name: [facility] Address: [address] [place] [address] Director: John Richardson Kendy Coffman MD LAB PATHOLOGY ORDERAB LES Final Result [facility] [place], [place] [facility] [place] DAV[place] from Last 3 Months or Most Recently Relevant to Health Maintenance Insurance [facility] NICOLE JAYATERRENCE CIGMISAEL LAKETERRENCE Care Teams Placement Director Relationship Specialty Start Date End Date Elsa Marcial MD [address] [facility] [address] [place] [address] PCP - General Family Medicine 09/28/24
--- OUTSIDE RECORDS SUMMARY | 2025-06-06 11:32 | XMS_ITS | Referral Summary ---
Author Organization CC [facility] [address] Address [address] [place] [address] Phone Care Team Providers Care Kitchen Manager Name Role Phone Elsa Marcial MD Primary Care Provider Encounters Date Type Department Care Team Description 03/14/2025 11:30 AM CDT Office Visit [facility] Cardiology [address] [place] [phone] Miller Stephens MD Lipid screening (Primary Dx); Chest pain, unspecified type; Essential hypertension; Severe obesity (HCC) 03/08/2025 1:42 PM CDT - 03/08/2025 7:02 PM CDT Emergency [facility] [address] [place] [address] Kelly Dao MD Abdominal pain (Primary Dx); [...] on file 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 KT: KM Report ID: [id number] Reading Location: [id number] Procedure Note Pablo Cavazos MD - 03/08/2025 [...] Pablo Cavazos M.D. KT: KT Report ID: [id number] Reading Location: [place] [address] us Kelly Dao MD IMG CT PROCEDURES Final R esult * POCT hCG, urine (03/08/2025 4:05 PM CDT) Pathologist [facility] HCG, ur, POC Negative Negative Lot Number [id number] QC Backgroud Clear Acceptable QC Control Line Acceptable Urine 03/08/2025 4:05 PM CDT us Kelly Dao MD POINT OF CARE TEST ORDERA BLES Final Result * Sepsis Lactate w/ Reflex (03/08/2025 2:48 PM CDT) [facility] Sepsis Lactate 1.2 0.7 - 2.0 mmol/L Blood 03/08/2025 2:48 PM CDT 03/08/2025 2:55 PM CDT us Kelly Dao MD LAB BLOOD ORDERABLES Vanessa l Result [facility] [place] 1 [facility] [place] [address] * (ABNORMAL) Urinalysis reflex to microscopic and [...] tendency for uric acid stone formation. Source: [facility] Current Interpretive Data was last revised [...] MICROBIOLOGY - GENERA L ORDERABLES Final Result [facility] ([place]) 1 [facility] [place] [address] * (ABNORMAL) Urinalysis, microscopic only (03/08/2025 1:02 PM CDT) WBC, ur 11-20(A) 0 - 5 /HPF RBC, ur 0-2 0 - 2 /HPF [facility] ([place]) Epithelial cells, squamous, ur 1-5 0 - 5 /HPF [facility] ([place]) Mucous, ur Present(A) [facility] ([place]) Hyaline casts, ur 6-10 0 - 10 /LPF [facility] ([place]) Culture Reflex Comment Reflex to urine culture will be performed. [facility] ([place]) Urine 03/08/2025 1:02 PM CDT 03/08/2025 1:04 PM CDT Kelly Dao MD LAB URINE ORDERABLES Vanessa l Result Performing Organization Address City/[facility]/ZIP Co de Phone Number [facility] ([place]) 1 [facility] [place] [address] * Urine culture Urine (03/08/2025 1:02 PM CDT) Report Final Report: Less than 100,000 colonies/mL (clinically insignificant growth based on current clinical standards) Comment:Testing performed by : [facility], [address] [place]., [address] Organism (CLINICALLY INSIGNIFICANT GR[facility]TH [facility] [place] 2] ([place]) Urine 03/08/2025 1:02 PM CDT 03/08/2025 4:30 PM CDT Narrative [facility] ([place]) - 03/09/2025 6:34 PM CDT Urine culture reflexed based upon urinalysis results. Testing performed by [facility] ([phone]) us Dirk Campbell MD LAB MICROBIOLOGY - GENERAL O RDERABLES Final Result Performing Organization Address City/[facility]/ZIP Co de Phone Number [facility] ([place]) 1 [facility] [employer] [place] [address] * eGFR (03/08/2025 12:56 PM CDT) eGFR [...] BLOOD ORDERABLES Vanessa bennett Result [facility] ([place]) 1 [facility] [place] [address] * Differential, auto (03/08/2025 12:56 PM CDT) [...] Vanessa bennett Result [facility] ([place]) 1 [facility] [place] [address] * (ABNORMAL) CBC with auto differential (03/08/2025 [...] ([place]) MCV 89.3 81.3 - 96.[address] [facility] ([place]) MCH 31.3 27.1 - 33.[address] [facility] ([place]) MCHC 35.1 32.3 - 35.7 g/dL [facility] ([place]) RDW CV 13.5 11.1 - 14.9 % [facility] ([place] RDW SD 44.1 35.7 - 48.[address] [facility] ([place]) NRBC abs 0.00 0.00 - 0.01 K/cumm [facility] ([place]) Blood Venous blood specimen / Unknown 03/08/2025 12:56 PM CDT 03/08/2025 1:04 PM CDT Kelly Dao MD LAB BLOOD ORDERABLES Vanessa l Result [facility] ([place]) 1 [facility] [place] [address] * Lipase (03/08/2025 12:56 PM CDT) Pathologist [facility] Lipase 24 10 - 99 Units/L Comment:Bertakrista Rudd ([place]) Blood Venous blood specimen / Unknown 03/08/2025 12:56 PM CDT 03/08/2025 1:04 PM CDT Kelly Dao MD LAB BLOOD ORDERABLES Vanessa l Result [facility] ([place]) 1 [facility] [employer] [place] [address] * (ABNORMAL) Comprehensive metabolic panel (03/08/2025 12:56 PM CDT) Pathologist [facility] Sodium 140 135 - 145 mmol/L Comment:Bertakrista Rudd ([place]) Potassium, pl 2.8(C) 3.3 - 4.9 mmol/L [facility] ([place]) Comment:Critical Result call ed by [email or web address] at 2025-03-08 13:39:41. Result Read Back by Berta Rudd ([place]) Chloride 100 97 - 110 mmol/L [facility] ([place]) Comment:[facility] ([place]) CO2 27 22 - 32 mmol/L [facility] ([place]) Comment:[facility] ([place]) Anion gap 13 2 - 15 mmol/L [facility] ([place]) Comment:[facility] ([place]) BUN 9 6 - 25 mg/dL [facility] ([place]) Comment:[facility] ([place]) Creatinine 0.78 0.60 - 1.10 mg/dL [facility] ([place]) Comment:[facility] ([place]) Glucose 123 70 - 199 mg/dL [facility] ([place]) Comment: [facility] ([place]) Interpretive Data Fasting glucose [...] 8.5 - 10.3 mg/dL [facility] ([place]) Comment:[facility] ([place]) Bilirubin, total 0.7 0.1 - 1.2 mg/dL [facility] ([place]) Comment:[facility] ([place]) Protein, pl 7.5 6.5 - 8.5 g/dL [facility] ([place]) Comment:[facility] ([place]) Albumin 4.3 3.5 - 5.0 g/dL [facility] ([place]) Comment:[facility] ([place]) Alk phos 103 40 - 130 Units/L [facility] ([place]) Comment:[facility] ([place]) ALT 19 7 - 45 Units/L [facility] ([place]) Comment:[facility] ([place]) AST 19 10 - 45 Units/L [facility] ([place]) Comment:[facility] ([place]) Blood 03/08/2025 12:5 6 PM CDT 03/08/2025 1:04 PM CDT us Kelly Dao MD LAB BLOOD ORDERABLES Vanessa l Result [facility] ([place]) 1 [facility] [place] [address] * Hepatitis C antibody (05/26/2018 2:39 PM CDT) Hep C Ab NON-REACTI VE NON-REACTI VE [facility] [place] SIGNAL TO CUT-OFF 0.01 <1.00 [facility] [place] Blood specimen (specimen) 05/26/2018 2:39 PM CDT 05/26/2018 2:42 PM CDT Narrative Resulting Agency Comment Performing Organization Information: Site ID: [id number] Name: [facility] Address: [address] [place] [address] Director: Zack Westfall D.O., MPH Kendy Coffman MD LAB MICROBIOLOGY - GE NERAL ORDERABLES Final Result [facility] [place] * ThinPrep Imaging Pap and HPV [...] has been evaluated with computer assisted technology. Bike Assembler [email or web address] DIAGNOSTIC - Comment: BLG, CT(ASCP) CT screening location: [place] [address] [place] [address] Review market research analyst CANCELED [facility] [place] Comment:Result canceled [...] Risk E6/E7 Not Detected Not Detected [facility] [place] Comment: This test was performed using the APTIMA HPV Assay ([employer] This assay detects E6/E7 viral messenger RNA (mRNA) from 14 high-risk HPV types (16,18,31,33,35,39,45,51,52,56,58,59,66,68). The analytical performance characteristics of this assay have been determined by [facility]. The modifications have not been cleared or [...] was performed using the APTIMA COMBO2 Assay ([employer] The analytical performance characteristics of this assay, when used to test SurePath specimens have been determined by [facility]. 05/26/2018 11:1 2 AM CDT 05/30/2018 5:02 AM CDT Narrative Resulting Agency Comment Performing Organization Information: Site ID: [id number] Name: [facility] Address: [address] [place] [address] Director: Zack Westfall D.O., MPH Site ID: [id number] Name: [facility] Address: [address] [place] [address] Director: John Richardson us Kendy Coffman MD LAB PATHOLOGY ORDERAB LES Final Result [facility] - [place], [place] [facility] - [place], DAVID from Last 3 Months or Most Recently Relevant to Health Maintenance Insurance [facility] [place] [address] [employer] NICOLE [employer]AGUNAS Care Teams Kitchen Manager Relationship Specialty Start Date End Date Elsa Marcial MD [address] [facility] [address] [place] [address] PCP - General Family Medicine 09/28/24
--- OUTSIDE RECORDS SUMMARY | 2025-06-06 11:32 | XMS_ITS | Clinical Summary ---
Author Organization [facility] [employer] Address [address] [facility] [place] [address] Care Team Providers Care Plastic Sheeting Cutter Name Role Phone Melodie Barrera Primary Care Provider [phone] Source Comments [facility] [employer],non-research psychiatric center Affiliates and Associated Physician Practices is amultiple site organization consisting of ambulatory clinics and hospital sitesin [place], [place], [place] and [place]. This disclosure is being madepursuant to the Care Everywhere program and may not contain all information available regarding this patient. 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 Gender Identity Not on file Sexual Orientation [...] 2 - PCV) 2005 PAP SMEAR 2007 HPV VACCINE (1 - 3-dose SCDM series) 2013 COVID-19 VACCINE (1 - 2023-2 5 season) 2024 DEPRESSION SCREENING 11/21/2024 INFLUENZA VACCINE (#1) 2025 12/13/2016 ZOSTER VACCINE (1 of 2) 2036 HIB VACCINE Aged Out No longer eligi ble based on patient's age to complete this topic MENINGOCOCCAL (Group B) VACC INE SHARED DECISION-MAKING Aged Out No longer eligibl e based on patient's age to complete this topic MENINGOCOCCAL GROUPS A/C/Y/W VACCINE Aged Out No longer eligible b ased on patient's age to complete this topic Insurance PENDING SALE TO [facility] Address: [facility] [id number] [place] [address] SELF PAY NO INSURANCE Member Subscriber Plan / Payer (Ef fective for All Dates) Name:Dior Larson Member ID:Not on file Relation to Subscriber:Not on file Name:DIOR LARSON Subscriber ID:Not on file Address: [address] [place] [address] Payer ID:Not on file Group ID:Not on file Type:Self Pay Address: [place], [place] Member Subscriber Plan / Payer (Ef fective for All Dates) Name:MarshaShabnam cokeromaira Clement Member ID:Not on file Relation to Subscriber:Not on file Name:MARSHA,DIOR Subscriber ID:Not on file Address: [address] [place] [address] Payer ID:Not on file Group ID:Not on file Type:Self Pay Address: [place], [place] [address] SELF PAY NO INSURANCE Member Subscriber Plan / Payer (Ef fective for All Dates) Name:MarshaShabnam cokerica D Member ID:Not on file Relation to Subscriber:Not on file Name:DIOR LARSON Subscriber ID:Not on file Address: [address] [place] [address] Payer ID:Not on file Group ID:Not on file Type:Self Pay Address: [place], [place] Care Teams Plastic Sheeting Cutter Relationship Specialty Start Date End Date Melodie Barrera PA [address] [place] [address] PCP - General 04/23/19
--- OUTSIDE RECORDS SUMMARY | 2025-06-06 11:32 | XMS_ITS | Clinical Summary ---
Author Organization [facility] Address [address] [place] [address] Phone Care Team Providers Care Filling Hauler Name Role Phone Bj Rodriguez MD Primary Care Provider [phone] Allergies Active Allergy Reactions Criticality Noted Date [...] TIMES DAILY NEEDED FOR ELEVATED BLOOD PRESSURE Active Active Problems No known active problems Encounters Date Type Department Care Team Description 06/03/2025 9:28 PM CDT - 06/04/2025 1:54 AM CDT Emergency [facility] [address] [place] [id number] Lito Jansen MD Chest pain, unspecified type Discharge Disposition: Discharged to home or Selfcare 06/03/2025 Travel 03/08/2025 11:25 AM CDT Urgent Care Visit [facility] [address] [place] [address] Maryan Cormier APRN, CNP Nausea and vomiting, unspecified vomiting type (Primary [...] Sign Reading Time Taken Comments Blood Pressure 133/93 06/04/2025 1:30 AM CDT Pulse 96 06/04/2025 1:45 AM CDT Temperature 37.6 C (99.7 F) 06/03/2025 9:23 PM CDT Respiratory Rate 17 06/04/2025 1:45 AM CDT Oxygen Saturation 97% 06/04/2025 1:45 AM CDT Inhaled Oxygen Concentration - - Weight 97.1 kg (214 lb 1.1 oz) 06/03/2025 9:23 P M CDT Height 157.5 cm (5' 2) 06/03/2025 9:23 PM CDT Body Mass Index 39.15 06/03/2025 9:23 PM CDT Plan of Treatment Health Maintenance Due [...] ( season) 2024 07/31/2021, 07/08/2021 Influenza Immunization (#1) 07/22/202507/23, 08/21/2020, 08/18/2019, Additional history exists Respiratory Syncytial [...] Procedure Name Priority Date/Time Associated Diagnosis Comments TROPONIN I, HIGH SENSITIVITY (HSTRP) STAT 06/03/2025 11:59 PM CDT XR CHEST SINGLE VIEW PORTABLE STAT 06/03/2025 10:51 PM CDT CBC WITH AUTO DIFFERENTIAL STAT 06/03/2025 10:07 PM CDT THYROID STIMULATING HORMONE (TSH) STAT 06/03/2025 10:07 PM CDT N-TERMINAL- PRO B TYPE NATRIURETIC PEPTIDE STAT 06/03/2025 10:07 PM CDT D-DIMER STAT 06/03/2025 10:07 PM CDT PROTIME (PT) (PROTHROMBIN TIME) STAT 06/03/2025 10:07 PM CDT APTT (PTT) STAT 06/03/2025 10:07 PM CDT TROPONIN I, HIGH SENSITIVITY (HSTRP) STAT 06/03/2025 10:07 PM CDT CMP (COMPREHENSIVE METABOLIC PANEL) STAT 06/03/2025 10:07 PM CDT COMPLETE BLOOD COUNT (CBC) WITH DIFF STAT 06/03/2025 10:07 PM CDT HUMAN CHORIONIC GONADOTROPIN SCRN SERUM STAT 06/03/2025 10:07 PM CDT EKG SCAN 06/03/2025 12:00 AM CDT POC INFLUENZA A AND B BY MOLECULAR Routine 03/08/2025 11:40 AM CDT Nausea and vomiting, unspecified vomiting type from Last 3 Months Results * (ABNORMAL) TROPONIN I, HIGH SENSITIVITY (HSTRP) (06/03/2025 11:59 PM CDT) Only the most recent of2 resultswithin the time period is included. TROPONIN I, HIGH SENSITIVITY- [facility]AS 25(H) <=14 ng/L 06/04/2025 1:07 AM CDT [facility] Comment: High-sensitivity troponin I results are reported in ng/L making the result appear to be 1,000 times higher than the contemporary troponin I value which is reported in ng/ml. Results from [facility]. Blood Venipuncture / Unknown 06/03/2025 11:59 PM CDT 06/04/2025 12:26 AM CDT us Lito Jansen MD CHEMISTRY ORDERABLES Vanessa sabrina Result [facility] [address] [place] [address] * XR CHEST SINGLE VIEW PORTABLE (06/03/2025 10:51 PM CDT) Anatomical Region Laterality Modality Chest N/A Digital Radiogra phy 06/04/2025 1:40 AM CDT Impressions 06/04/2025 1:42 AM CDT IMPRESSION: No acute abnormality identified within limits of low inspiratory volume portable technique. 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 HX: Smoker, HTN TECHNIQUE: Portable upright AP view of the chest. COMPARISON: None FINDINGS: LUNGS AND PLEURA: No focal opacity, large effusion, or pneumothorax identified. HEART/MEDIASTINUM: Trachea midline. Cardiac silhouette normal in size. Mediastinal contours appear normal. BONES: Unremarkable. CHEST WALL: Unremarkable. UPPER ABDOMEN: Unremarkable. THIS IS AN ELECTRONICALLY VERIFIED FINAL REPORT 06/04/2025 1:40 AM - Electronically signed by Butch Black M.D. 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 HX: Smoker, HTN TECHNIQUE: Portable upright AP view of the chest. COMPARISON: None FINDINGS: LUNGS AND PLEURA: No focal opacity, large effusion, or pneumothorax identified. HEART/MEDIASTINUM: Trachea midline. Cardiac silhouette normal in size. Mediastinal contours appear normal. BONES: Unremarkable. CHEST WALL: Unremarkable. UPPER ABDOMEN: Unremarkable. THIS IS AN ELECTRONICALLY VERIFIED FINAL REPORT 06/04/2025 1:40 AM - Electronically signed by Butch Black M.D. AR: JEFF Report ID: [id number] Reading Location: [id number] IMPRESSION: No acute abnormality identified within limits of low inspiratory volume portable technique. us Lito Jansen MD IMG DIAGNOSTIC ORDERABLES Final Result * NT-proBNP (06/03/2025 10:07 PM CDT) NT PROBNP 108.8 <450.0 pg/mL 06/03/2025 11:02 PM CDT [facility] Comment: AGE pg/mL INTERPRETATION All <300 Negative: HF (Heart Failure) unlikely 18 to <50 >=300.0 to <450.0 Indeterminate. Consider other causes of NT-proBNP elevation 50 to 75 >=300.0 to <900.0 Indeterminate. Consider other causes of NT-proBNP elevation >75 >=300.0 to <1800.0 Indeterminate. Consider other causes of NT-proBNP elevation 18 to <50 >=450.0 Positive: HF likely 50 to 75 >=900.0 Positive: HF likely >75 >=1800.0 Positive: HF likely Total protein levels at or above 12.6 mg/dl may falsely decrease NT-proBNP values. Blood Venipuncture / Unknown 06/03/2025 10:07 PM CDT 06/03/2025 10:23 PM CDT us Lito Jansen MD CHEMISTRY ORDERABLES Vanessa l Result [facility] [address] [place] [address] * (ABNORMAL) CBC with Auto Differential (06/03/2025 10:07 PM CDT) WBC 9.84 4.00 - 12.00 10(3)/mcL 06/03/2025 10:26 PM CDT [facility] RBC 3.95 3.80 - 5.30 10(6)/mcL 06/03/2025 10:26 PM CDT [facility] HEMOGLOBIN (HGB) 12.4 12.0 - 15.8 g/dL 06/03/2025 10:26 PM CDT [facility] HEMATOCRIT (HCT) 36.5 36.0 - 47.0 % 06/03/2025 10:26 PM CDT [facility] MCV 92.4 82.0 - 96.0 fL 06/03/2025 10:26 PM CDT [facility] MCH 31.4 26.0 - 34.0 pg 06/03/2025 10:26 PM CDT [facility] MCHC 34.0 31.0 - 36.0 g/dL 06/03/2025 10:26 PM CDT [facility] PLATELET COUNT 394 140 - 440 10(3)/mcL 06/03/2025 10:26 PM CDT [facility] RDW 13.5 11.8 - 15.5 % 06/03/2025 10:26 PM CDT [facility] MPV 9.5(L) 9.7 - 12.4 fL 06/03/2025 10:26 PM CDT [facility] NEUTROPHILS 66.5 47.0 - 73.0 % 06/03/2025 10:26 PM CDT [facility] LYMPHOCYTES 25.4 18.0 - 42.0 % 06/03/2025 10:26 PM CDT [facility] MONOCYTES 4.7 4.0 - 12.0 % 06/03/2025 10:26 PM CDT [facility] EOSINOPHILS 2.7 0.0 - 5.0 % 06/03/2025 10:26 PM CDT [facility] BASOPHILS 0.3 0.0 - 1.0 % 06/03/2025 10:26 PM CDT [facility] IMMATURE GRANULOCYTE 0.4 0.0 - 0.4 % 06/03/2025 10:26 PM CDT [facility] Comment:Immature Granulocyte s includes Metamyelocytes, Myelocytes, and Promyelocytes. ABSOLUTE NEUTROPHILS 6.54 1.60 - 7.70 10(3)/mcL 06/03/2025 10:26 PM CDT [facility] ABSOLUTE LYMPHOCYTES 2.50 1.30 - 3.20 10(3)/mcL 06/03/2025 10:26 PM CDT [facility] ABSOLUTE MONOCYTES 0.46 0.20 - 1.00 10(3)/mcL 06/03/2025 10:26 PM CDT [facility] ABSOLUTE EOSINOPHIL 0.27 0.00 - 0.40 10(3)/mcL 06/03/2025 10:26 PM CDT [facility] ABSOLUTE BASOPHILS 0.03 0.00 - 0.10 10(3)/mcL 06/03/2025 10:26 PM CDT [facility] ABSOLUTE IMMATURE GRANULOCYTE 0.04(H) 0.00 - 0.03 10 (3) [facility]. 06/03/2025 10:26 PM CDT [facility] NRBC PER 100 WBC 0 06/03/20 10:26 PM CDT [facility] Blood Venipuncture / Unknown 06/03/2025 10:07 PM CDT 06/03/2025 10:23 PM CDT us Lito Jansen MD HEMATOLOGY ORDERABLES Fin al Result [facility] [address] [place] [address] * Thyroid Stimulating Hormone (TSH) (06/03/2025 10:07 PM CDT) TSH 0.886 0.300 - 5.000 mIU/L 06/03/2025 11:02 PM CDT [facility] Blood Venipuncture / Unknown 06/03/2025 10:07 PM CDT 06/03/2025 10:23 PM CDT Lito Jansen MD CHEMISTRY ORDERABLES Vanessa l Result [facility] [address] [place] [address] * APTT (PTT) (06/03/2025 10:07 PM CDT) PTT 26 24 - 36 sec 06/03/2025 10:47 PM CDT [facility] Blood Venipuncture / Unknown 06/03/2025 10:07 PM CDT 06/03/2025 10:23 PM CDT Narrative [facility] - 06/03/2025 10:47 PM CDT Therapeutic range for unfractionated heparin at 0.3-0.7 U/mL is an aPTT value in the range of 71-100 seconds. Critical value for the PTT test is >= 122 seconds. us Lito Jansen MD HEMATOLOGY ORDERABLES Fin al Result [facility] [address] [place] [address] * PT / INR (06/03/2025 10:07 PM CDT) Pathologist [facility] PROTIME-PATIENT 13.5 11.6 - 14.8 sec 06/03/2025 10:47 PM CDT [facility] INR 1.0 0.9 - 1.2 06/03/2025 10:47 PM CDT [facility] Comment: Therapeutic Ranges INR = 2.0-3.0: Venous thromb, atrial fib, pul embolism, tissue heart valve, ami. INR = 2.5-3.5: Mechanical heart valve Critical value for INR is >/= 4.5 Blood Venipuncture / Unknown 06/03/2025 10:07 PM CDT 06/03/2025 10:23 PM CDT us Lito Jansen MD HEMATOLOGY ORDERABLES Camron knight Result [facility] [address] [place] [address] * Human Chorionic Gonadotropin Scrn Serum [id number] (06/03/2025 10:07 PM CDT) Pathologist [facility] PREG-HCG Negative Negative 06/03/2025 10:39 PM CDT [facility] Blood Venipuncture / Unknown 06/03/2025 10:07 PM CDT 06/03/2025 10:23 PM CDT us Lito Jansen MD CHEMISTRY ORDERABLES Vanessa l Result Performing Organization Address [facility] Co de Phone Number [facility] [address] [place] [address] * D-Dimer (06/03/2025 10:07 PM CDT) [facility] D DIMER 0.34 <0.50 mcg/mL FEU 06/03/2025 10:47 PM CDT [facility] Blood Venipuncture / Unknown 06/03/2025 10:07 PM CDT 06/03/2025 10:23 PM CDT Narrative [facility] - 06/03/2025 10:47 PM CDT The FDA has approved this method to exclude the diagnosis of DVT and/or PE at the cutoff value of <0.50 mcg/mL FEU. us Lito Jansen MD HEMATOLOGY ORDERABLES Fin al Result Performing Organization Address [facility] de Phone Number [facility] [address] [place] [address] * (ABNORMAL) CMP (Comprehensive Metabolic Panel) (06/03/2025 10:07 PM CDT) [facility] SODIUM 141 136 - 145 mmol/L 06/03/2025 10:51 PM CDT [facility] POTASSIUM 2.7(LL) 3.5 - 5.1 mmol/L 06/03/2025 10:51 PM CDT [facility] CHLORIDE 103 98 - 107 mmol/L 06/03/2025 10:51 PM CDT [facility] CO2, VENOUS 28 22 - 30 mmol/L 06/03/2025 10:51 PM CDT [facility] ANION GAP 12.7 <18.0 mmol/L 06/03/2025 10:51 PM CDT [facility] GLUCOSE 116(H) 70 - 99 mg/dL 06/03/2025 10:51 PM CDT [facility] BUN 14 5 - 18 mg/dL 06/03/2025 10:51 PM CDT [facility] CREATININE, BLOOD 0.87 0.60 - 1.00 mg/dL 06/03/2025 10:51 PM CDT [facility] BUN/CREATININE RATIO 16 12 - 20 ratio 06/03/2025 10:51 PM CDT [facility] TOTAL PROTEIN 7.4 6.0 - 8.0 g/dL 06/03/2025 10:51 PM CDT [facility] ALBUMIN 4.3 3.5 - 5.0 g/dL 06/03/2025 10:51 PM CDT [facility] A/G RATIO 1.4 1.0 - 2.2 06/03/2025 10:51 PM CDT [facility] CALCIUM 9.5 8.7 - 10.5 mg/dL 06/03/2025 10:51 PM CDT [facility] T BILI 0.7 0.2 - 1.2 mg/dL 06/03/2025 10:51 PM CDT [facility] SGOT (AST) 21 <43 U/L 06/03/2025 10:51 PM CDT [facility] SGPT (ALT) 17 <56 U/L 06/03/2025 10:51 PM CDT [facility] ALKALINE PHOSPHATASE 81 40 - 150 U/L 06/03/2025 10:51 PM CDT [facility] GFR, ESTIMATED >60 >=60 06/03/2025 10:51 PM CDT [facility] Comment: Creatinine Clearance is the preferred criteria for selecting drug dose adjustments in renally impaired patients. The GFR is provided as additional pertinent clinical information. GFR is reported in mL/min/1.73 sq m. Calculation based on the Chronic Kidney Disease Epidemiology Collaboration (CKD- EPI) equation refit without adjustment for race. GFR, EST. >60 >=60 025 10:51 PM CDT [facility] GFR, EST. NONAFRICAN >60 >=60 06/03/2025 10:51 PM CDT [facility] Blood Venipuncture / Unknown 06/03/2025 10:07 PM CDT 06/03/2025 10:23 PM CDT us Lito Jansen MD CHEMISTRY ORDERABLES Vanessa l Result Performing Organization Address [facility] Co de Phone Number [facility] [address] [place] [address] * EKG SCAN (06/03/2025 12:00 AM CDT) 06/03/2025 us Provider Scan IMG ECG ORDERABLES Final Result Performing Organization Address [facility] Co de Phone Number RESULTING AGENCY * POC INFLUENZA A AND B BY MOLECULAR (03/08/2025 11:40 AM CDT) INFLUENZA A RNA Negative Negative, Invalid INFLUENZA B RNA Negative Negative, Invalid PROCEDURE CONTROL Valid 03/08/2025 11:4 0 AM CDT us Maryan Cormier DIRECTOR OF CATH LAB, DOCTOR OF DENTAL SURGERY POINT OF CARE TESTI NG (MANUAL) Final Result from Last 3 Months Insurance [employer] Care Teams Filling Hauler Relationship Specialty Start Date End Date Bj Rodriguez MD [address] [place] [address] PCP - General Internal Medicine 01/03/17
--- OUTSIDE RECORDS SUMMARY | 2025-06-06 11:32 | XMS_ITS | Clinical Summary ---
Author Organization [facility] Address [address] [place] [phone] Phone Care Team Providers Care Chiller Operator Name Role Phone Elsa Marcial MD Primary Care Provider [phone] Allergies Active Allergy Reactions Criticality Noted Date [...] Comments Blood Pressure 189/126 01/17/2024 9:13 AM DOUBLE CUT [facility]WYER did not take blood pressure medication this morning. Pulse 103 01/17/2024 9:11 AM D[employer] CUT [place]W[facility] Temperature 36.7 C (98 F) 01/17/2024 9:11 AM DOUBLE CUT [place]W[facility] Respiratory Rate 14 01/17/2024 9:11 AM D[employer] C[facility] [place] Oxygen Saturation 97% 01/17/2024 9:1 1 AM D[employer] CUT [facility] Inhaled Oxygen Concentration - - Weight 94.2 kg (207 lb 9.6 oz) 01/17/2024 9:11 AM DOUBLE CUT [place]WY[facility] Height 160 cm (5' 3) 12/14/2023 11:28 AM DOUBLE CUT [place]WYER Body Mass Index 36.77 12/14/2023 11:28 AM DOUBLE CUT [place]W[facility] Plan of Treatment Health Maintenance Due Date Last Done Comments HEPATITIS B VACCINES (1 of 3 - 19+ 3-dose series) 2005 HPV/Cotest (21-29) 2007 CERVICAL CANCER SCREENING 2016 HPV/Cotest (30-65) 2016 PAP SMEAR 2016 INFLUENZA VACCINE (#1) 2025 12/13/2016 DTAP/TDAP/TD VACCINES (2 - T d or Tdap) 12/13/2026 12/13/2016 HPV VACCINES Aged Out No longer eligi ble based on patient's age to complete this topic Insurance [employer] OPEN ACCESS [facility] [facility] [place] [facility] [place]: [address] [address] [facility] Care Teams Chiller Operator Relationship Specialty Start Date End Date Elsa Marcial MD [address] [facility] [address] [place] [address] PCP - General Family Practice 12/14/23
--- NOTE | 2025-06-06 11:37 | ECG_ITS ---
Test Date: 2025-06-06 11:52:38 Measurements Intervals [place] Rate: 101 P: 29 [place]: 140 QRS: 30 QRSD: 96 T: 52 QT: 370 QTc: 482 Interpretive Statements SINUS TACHYCARDIA ABNORMAL RHYTHM ECG No previous ECG available for comparison Electronically Signed On 06-06-2025 14:48:35 CDT by Mikey Hernandes M.D.
[2025-06-06 12:29] LABS: Hematocrit 38.9 % (37.0-47.0); Hemoglobin 13.0 g/dL (12.0-15.0); Immature Granulocyte Percent A 0.4 % (0-0.5); Lymphocytes Absolute Auto 2.43 K/mm3 (0.9-3.2); Mean Corpuscular HGB Conc 33.4 g/dl (32-36); Mean Corpuscular Hemoglobin 31.0 pg (26-34); Mean Corpuscular Volume 92.6 fl (80-100); Nucleated Red Blood Cells Absolute Auto 0.000 K/mm3 (0.0-0.012); Nucleated Red Blood Cells Perc 0.0 % (0.0-0.2); Platelet Count Result 409 k/mm3 (150-375); Red Blood Count 4.20 M/mm3 (4.2-5.4); White Blood Count 10.2 K/mm3 (4.5-10.0)
[2025-06-06 12:45] LABS: Alanine Aminotransferase 23 U/L (6-35); Albumin Level 4.5 g/dL (3.5-5.1); Alkaline Phosphatase 90 U/L (38-126); Anion Gap 8 mmol/L (4-12); Aspartate Amino Transferase 33 U/L (14-36); Bilirubin,Total 0.7 mg/dL (0.2-1.3); Blood Urea Nitrogen 13 mg/dL (7-17); Calcium 9.3 mg/dL (8.4-10.2); Carbon Dioxide 29 mmol/L (22-30); Chloride 101 mmol/L (98-107); Estimated CRCL calculation 96 ml/min; Estimated Glomerular Filt Rate > 60; Glucose 95 mg/dL (65-110); Potassium 3.1 mmol/L (3.4-5.0); Sodium 138 mmol/L (137-145); Total Protein 8.2 g/dL (6.3-8.2)
[2025-06-06 12:53] LABS: Add Urine Microscopic? NO; Appearance Urine Clear (Clear); Glucose Urine UA Negative (Negative); Leukocyte Esterase Ur Negative LEU/UL (Negative); Nitrate Urine Negative (Negative); Specific Grav Ur 1.004 (1.001-1.035)
[2025-06-06 12:59] LABS: Troponin I 0.052 ng/mL (0.000-0.034)
[2025-06-06 13:00] LABS: NT Pro B Type Natriuretic Pept 304 pg/mL (19.9-100)
[2025-06-06 13:22] LABS: Thyroid Stimulating Hormone 0.769 uIU/mL (0.465-4.680)
--- NOTE | 2025-06-06 13:46 | ED.GENADULT ---
HPI - General Adult General Chief complaint: Recheck/Abnormal Lab/Rx Stated complaint: HTN, has hx Time Seen by Provider: 06/06/25 11:32 Source: patient Mode of arrival: ambulatory Limitations: no limitations History of Present Illness HPI narrative: 40-year-old with a history of hypertension presents to the ER with a complaint of elevated blood pressure for past few days. Patient states that she was at [facility] the for same problem 2 days ago was given IV medication during her stay she was found to have elevated troponin. This morning was at her PMD for a follow up visit , was found to high blood pressure , was referred to ER for admission and cariology consult.She presently has no Headache , CP . Onset (ago): day(s) (2) Exacerbating factors: none Associated symptoms: denies other symptoms Treatments prior to arrival: none Related Data Home Medications ?Medication ?Instructions ?Recorded ?Confirmed ?Last Taken ?Type budesonide 160 mcg-glycopyr 9 2 inh inhalation BID 06/11/24 06/06/25 Unknown History mcg-formot 4.8 mcg/actuation HFA inhaler (Breztri Aerosphere) Allergies Allergy/AdvReac Type Severity Reaction Status Date / Time ibuprofen Allergy Mild RASH ALL Verified 06/06/25 10:46 OVER BODY Review of Systems Review of Systems: All systems reviewed & are unremarkable except as noted in HPI and below Constitutional: Constitutional: Reports no additional constitutional complaints Eyes: Eyes: Reports no additional eye complaints ENT: Reports system reviewed and no additional complaints, except as documented Cardiovascular: Cardiovascular: Reports no additional cardiovascular complaints Respiratory: Respiratory: Reports no additional respiratory complaints Gastrointestinal: Gastrointestinal: Reports no additional gastrointestinal complaints Musculoskeletal: Musculoskeletal: Reports no additional musculoskeletal complaints Neurologic: Reports system reviewed and no additional complaints, except as documented [facility] Past Medical History Medical History Bronchitis BMI 39.0-39.9,adult Physical examination of employee URI (upper respiratory infection) Eczema PIH ( induced hypertension) Pain Chronic hypertension Smoker Asthma Surgical History Surgical History S/P tubal ligation deliv NOS-unsp History of Family History Family History Mother Heart attack Brain aneurysm Father Heart attack Social History Social History Social History: Smoking packs per day: 0.5 Smoking cigarettes per day: 10.0 Years smoked: 20 Smoking pack-years: 10.00 Smoking status: Current some day smoker Tobacco type: cigarettes Second hand tobacco smoke exposure: Yes Alcohol intake: never Substance use: never Substance use type: does not use Do You Feel Safe in your Home?: Yes Lack of Transportation: No Lack of Food: Never True Current Housing: I Have Housing Concerned About Future Housing: No Difficulty Paying Gas/Electric Bills: No Difficulty Paying for Meds: No Currently Unemployed: No Education: High School Diploma/GED Difficulty w/ Childcare or Family Care: No Living arrangements: with family 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 HEAD: Normocephalic, atraumatic. EYES: PERRLA and EOMI. ENT: Nares clear, no rhinorrhea or epistaxis. Mucous membranes moist. NECK: Supple. CHEST: Clear to auscultation. No respiratory distress. HEART: Regular rate and rhythm. No murmur heard. Normal peripheral pulses. ABDOMEN: Soft, nontender, nondistended, normal active bowel sounds. EXTREMITIES: Normal range of motion. No edema. SKIN: Warm, dry, no rash. NEURO: No focal deficits. Alert and oriented x3. PSYCH: Normal mood and affect. Course Course Emergency Course: Patient was given labetalol in increments which brought her blood pressure from 230 to 178. She still remains asymptomatic I did inform her about the lab work. She is agreeable with admission. Discussed with the hospitalist accepted the patient. Vital Signs Vital signs: Vital Signs Pulse Rate 110 H 06/06/25 11:33 Respiratory Rate 18 06/06/25 11:33 Blood Pressure 211/136 H 06/06/25 11:33 Pulse Oximetry 100 06/06/25 11:33 Oxygen Delivery Room Air 06/06/25 11:33 Pulse Rate 96 06/06/25 12:58 Respiratory Rate 21 H 06/06/25 12:58 Blood Pressure 175/113 H 06/06/25 12:32 Pulse Oximetry 99 06/06/25 12:58 Oxygen Delivery Room Air 06/06/25 11:33 Medical Decision Making MDM Narrative Medical decision making narrative: 40-year-old with a history of hypertension presents to the ER with a complaint of elevated blood pressure physical exam is unremarkable EKG shows sinus tach with no acute ST-T changes will do lab work will give IV labetalol for blood pressure.. Medical Records Medical records reviewed: Yes I reviewed the external patient's medical records. Vital Signs Vital Signs: Vital Signs Pulse Rate 110 H 06/06/25 11:33 Respiratory Rate 18 06/06/25 11:33 Blood Pressure 211/136 H 06/06/25 11:33 Pulse Oximetry 100 06/06/25 11:33 Oxygen Delivery Room Air 06/06/25 11:33 Pulse Rate 96 06/06/25 12:58 Respiratory Rate 21 H 06/06/25 12:58 Blood Pressure 175/113 H 06/06/25 12:32 Pulse Oximetry 99 06/06/25 12:58 Oxygen Delivery Room Air 06/06/25 11:33 Lab Data Lab results reviewed: Yes I reviewed the patient's lab results. 06/06/25 12:16 06/06/25 12:16 Labs: Lab Results 06/06/25 Range/Units 12:16 WBC 10.2 H (4.5-10.0) K/mm3 RBC 4.20 (4.2-5.4) M/mm3 Hgb 13.0 (12.0-15.0) g/dL Hct 38.9 (37.0-47.0) % MCV 92.6 (80-100) fl MCH 31.0 (26-34) pg MCHC 33.4 (32-36) g/dl RDW 13.4 (11.5-14.5) % Plt Count 409 H (150-375) k/mm3 MPV 9.1 (7.4-10.4) fl Immature Gran % (Auto) 0.4 (0-0.5) % Neut % (Auto) 68.5 (45.5-73.1) % Lymph % (Auto) 23.8 (18.3-44.2) % [place]verse % (Auto) 4.6 (2.6-8.5) % Eos % (Auto) 2.3 (0-4.4) % Baso % (Auto) 0.4 (0.2-1.2) % Lymph # (Auto) 2.43 (0.9-3.2) K/mm3 [place]verse # (Auto) 0.5 (0.1-0.6) K/mm3 Eos # (Auto) 0.2 (0-0.3) K/mm3 Baso # (Auto) 0.0 (0.0-0.1) K/mm3 Abs Immat Gran (auto) 0.04 H (0.00-0.031) K/mm3 Absolute Neuts (auto) 7.0 H (1.3-6.7) K/mm3 Absolute Nucleated RBC 0.000 (0.0-0.012) K/mm3 Nucleated RBC % 0.0 (0.0-0.2) % Sodium 138 (137-145) mmol/L Potassium 3.1 L (3.4-5.0) mmol/L Chloride 101 (98-107) mmol/L Carbon Dioxide 29 (22-30) mmol/L Anion Gap 8 (4-12) mmol/L BUN 13 (7-17) mg/dL Creatinine 0.76 (0.7-1.0) mg/dL Estim Creat Clear Calc 96 ml/min Estimated GFR > 60 (59 - ) Glucose 95 (65-110) mg/dL Calcium 9.3 (8.4-10.2) mg/dL Total Bilirubin 0.7 (0.2-1.3) mg/dL AST 33 (14-36) U/L ALT 23 (6-35) U/L Alkaline Phosphatase 90 (38-126) U/L Troponin I 0.052 H* (0.000-0.034) ng/mL NT-Pro-B Natriuret Pep 304 H (19.9-100) pg/mL Total Protein 8.2 (6.3-8.2) g/dL Albumin 4.5 (3.5-5.1) g/dL TSH 0.769 (0.465-4.680) uIU/mL Urine Color Yellow (Yellow) Urine Appearance Clear (Clear) Urine pH 7.0 (5.0-9.0) Ur Specific [place] 1.004 (1.001-1.035) Urine Protein Negative (Negative) mg/dL Urine Glucose (UA) Negative (Negative) mg/dL Urine Ketones Negative (Negative) mg/dL Ur Blood (Man) Negative (Negative) Urine Nitrate Negative (Negative) Urine Bilirubin Negative (Negative) Urine Urobilinogen 0.2 (<2.0) mg/dL Leukocyte Esterase Rfl Negative (Negative) JUAN/UL Imaging Data Radiologist's impression: ITS Impressions Chest X-Ray 06/06/25 12:18 Impression: Clear lungs. ECG Data EKG #1: ECG completion date: 06/06/25 ECG completion time: 11:52 EKG Interpretation: tachycardia (101), no ectopy, normal QRS, NL axis and no acute changes Discharge Plan Discharge Clinical Impression: Uncontrolled hypertension, Elevated troponin I level Patient Disposition: Still a Patient Condition: Stable Patient Language: Romansh Prescriptions: No Action doxazosin [Cardura] 4 mg tablet 4 mg PO QHS Qty: 30 3RF potassium chloride 10 mEq tablet extended release See Rx Instructions .ROUTE .COMPLEX Qty: 90 0RF Dose Instruction: TAKE 1 TABLET BY MOUTH EVERY DAY Rx Instructions: TAKE 1 TABLET BY MOUTH EVERY DAY alprazolam 0.25 mg tablet 0.25 mg PO BID PRN (Reason: anxiety) Qty: 60 0RF escitalopram oxalate [Lexapro] 10 mg tablet 10 mg PO DAILY Qty: 90 1RF clonidine HCl 0.1 mg tablet 0.1 mg PO BID Qty: 60 3RF Breztri Aerosphere 160-9-4.8 mcg/actuation HFA aerosol inhaler 2 inh inhalation BID Patient Comments: sample given in office irbesartan 300 mg tablet 300 mg PO DAILY Qty: 90 2RF albuterol sulfate 90 mcg/actuation HFA aerosol inhaler 1 inh inhalation Q4H PRN (Reason: shortness of breath or wheezing) Qty: 6.7 2RF carvedilol 25 mg tablet 25 mg PO Q12H Qty: 60 4RF Rx Instructions: must administer with a meal/food triamterene-hydrochlorothiazid 37.5-25 mg tablet See Rx Instructions .ROUTE .COMPLEX Qty: 90 1RF Dose Instruction: TAKE 1 TABLET BY MOUTH EVERY MORNING Rx Instructions: TAKE 1 TABLET BY MOUTH EVERY MORNING nifedipine 30 mg tablet extended release 30 mg PO DAILY Qty: 30 0RF hydrocodone-acetaminophen 5-325 mg tablet 1 tablet PO Q8H PRN (Reason: severe pain (scale score 7-10)) Qty: 14 0RF Follow-up/Referrals: Jose J Magana MD [Primary Care Provider] - Time of Disposition: 13:50
--- NOTE | 2025-06-06 14:19 | P.HP_ITS ---
H&P: HPI History of Present Illness Date/Time: 06/06/25 14:19 Chief Complaint: Abnormal labs Narrative: 40-year-old female with history of hypertension presents the hospital and hypertensive urgency. Two days ago patient presented at outside hospital was found to have hypertension and elevated troponins. This morning was her follow- up with her PCP and she was found to be in hypertensive urgency emergency. And sent to the emergency room. Vital signs upon arrival to the ED was tachycardia 113, BP of 226/142 she was given several doses of labetalol and clonidine with some improvement. Lab work shows leukocytosis at 10.2, potassium of 3.1 troponin of 0.052, proBNP of 3004 UA negative for infection. Chest x-ray shows no acute process. Patient is being admitted for hypertensive urgency emergency and chest pain workup. Review of Systems Review of Systems: 12 systems were reviewed and are negativ e except for as per HPI. [facility] Past Medical History Medical History Bronchitis BMI 39.0-39.9,adult Physical examination of employee URI (upper respiratory infection) Eczema PIH ( induced hypertension) Pain Chronic hypertension Smoker Asthma Surgical History Surgical History S/P tubal ligation deliv NOS-unsp History of Family History Family History Mother Heart attack Brain aneurysm Father Heart attack Social History Social History Social History: Smoking packs per day: 1 Smoking cigarettes per day: 20.0 Years smoked: 25 Smoking pack-years: 25.00 Smoking status: Current every day smoker Tobacco type: cigarettes Second hand tobacco smoke exposure: Yes Alcohol intake: never Substance use: never Substance use type: does not use Do You Feel Safe in your Home?: Yes Lack of Transportation: No Lack of Food: Never True Current Housing: I Have Housing Concerned About Future Housing: No Difficulty Paying Gas/Electric Bills: No Difficulty Paying for Meds: No Currently Unemployed: No Education: High School Diploma/GED Difficulty w/ Childcare or Family Care: No Living arrangements: with family Occupation/Education: occupation Additional occupation/education comments: [employer] Work[employer] Gender identity (if verbalized by the patient): Female Sexual Orientation (if Verbalized by the Patient): Straight or Heterosexual Spiritual care concerns: No Meds Home Medications and Allergies Home Medications ?Medication ?Instructions ?Recorded ?Confirmed ?Type albuterol sulfate 90 mcg/actuation 1 inh inhalation Q4H PRN shortness 06/29/23 06/06/25 Rx aerosol inhaler of breath or wheezing #6.7 grams doxazosin 4 mg tablet (Cardura) 4 mg PO QHS #30 tabs 11/22/23 06/06/25 Rx potassium chloride 10 mEq See Rx Instructions .Route 11/22/23 06/06/25 Rx tablet,extended release .COMPLEX #90 tabs alprazolam 0.25 mg tablet 0.25 mg PO BID PRN anxiety #60 tabs 12/20/23 06/06/25 Rx budesonide 160 mcg-glycopyr 9 2 inh inhalation BID 06/11/24 06/06/25 History mcg-formot 4.8 mcg/actuation HFA inhaler (Breztri Aerosphere) clonidine HCl 0.1 mg tablet 0.1 mg PO BID #60 tabs 06/11/24 06/06/25 Rx escitalopram oxalate 10 mg tablet 10 mg PO DAILY #90 tabs 06/11/24 06/06/25 Rx (Lexapro) irbesartan 300 mg tablet 300 mg PO DAILY #90 tabs 10/01/24 06/06/25 Rx carvedilol 25 mg tablet 25 mg PO Q12H #60 tabs 11/23/24 06/06/25 Rx triamterene 37.5 See Rx Instructions .Route 11/23/24 06/06/25 Rx mg-hydrochlorothiazide 25 mg tablet .COMPLEX #90 tabs nifedipine 30 mg tablet,extended 30 mg PO DAILY #30 tabs 02/08/25 06/06/25 Rx release hydrocodone 5 mg-acetaminophen 325 1 tablet PO Q8H PRN severe pain 05/09/25 06/06/25 Rx mg tablet (scale score 7-10) #14 tabs Allergies Allergy/AdvReac Type Severity Reaction Status Date / Time ibuprofen Allergy Mild RASH ALL Verified 06/06/25 10:46 OVER BODY Vital Signs Vital Signs - 24 hr 06/06/25 11:33 06/06/25 11:37 06/06/25 11:38 Pulse Rate 110 H 103 H 103 H Respiratory Rate 18 20 16 Blood Pressure 211/136 H 211/136 H Pulse Oximetry 100 100 100 Oxygen Delivery Room Air 06/06/25 11:45 06/06/25 11:47 06/06/25 12:08 Pulse Rate 104 H 105 H 101 H Respiratory Rate 20 18 15 Blood Pressure 206/183 H Pulse Oximetry 100 91 100 Oxygen Delivery 06/06/25 12:23 06/06/25 12:30 06/06/25 12:32 Pulse Rate 98 95 95 Respiratory Rate 20 17 20 Blood Pressure 175/113 H Pulse Oximetry 99 99 100 Oxygen Delivery 06/06/25 12:58 Pulse Rate 96 Respiratory Rate 21 H Blood Pressure Pulse Oximetry 99 Oxygen Delivery Exam Narrative: General: well appearing, appears stated age. HEENT: normocephalic, atraumatic. Mucous membranes moist. EOMI, PERRLA, bilateral sclera anicteric, no conjunctival injection. Neck supple without JVD, lymphadenopathy, or bruit. Respiratory: clear to ascultation bilaterally. No rales/rhonic/wheezes. Cardiovascular: Regular rate and rhythm, normal S1-S2 upon ascultation. No murmurs, rubs, or clicks. PMI is nondisplaced, capillary refill less than 3 second. Abdomen: Soft, round, no pulsatile masses, nondistended and nontender. No rebound, no guarding. No CVA tenderness, no hepatosplenomegaly. Bowel sounds present to all four quadrants. No high pitch or tinkling sounds, resonant to percussion. Extremities: No cyanosis, clubbing, or edema present. Pulses are palpable 2/2. Active ROM to all four extremities. Neuro: Alert and orientated x 4. PERRLA. Cranial nerves 2-12 intact without focal deficit. Skin: Warm, dry, and intact, without rash, erythema, or lesion. Psych: pleasant, cooperative, normal speech, normal affect, no hallucinations, no dysarthia H&P: Results Labs Labs: Short CBC 06/06/25 Range/Units 12:16 WBC 10.2 H (4.5-10.0) K/mm3 Hgb 13.0 (12.0-15.0) g/dL Hct 38.9 (37.0-47.0) % Plt Count 409 H (150-375) k/mm3 BMP 06/06/25 12:16 Sodium 138 Potassium 3.1 L Chloride 101 Carbon Dioxide 29 BUN 13 Creatinine 0.76 Glucose 95 Calcium 9.3 Cardiac Enzymes 06/06/25 Range/Units 12:16 Troponin I 0.052 H* (0.000-0.034) ng/mL Liver Function 06/06/25 Range/Units 12:16 Total Bilirubin 0.7 (0.2-1.3) mg/dL AST 33 (14-36) U/L ALT 23 (6-35) U/L Alkaline Phosphatase 90 (38-126) U/L Albumin 4.5 (3.5-5.1) g/dL Urine 06/06/25 Range/Units 12:16 Urine Color Yellow (Yellow) Urine Appearance Clear (Clear) Urine pH 7.0 (5.0-9.0) Ur Specific [place] 1.004 (1.001-1.035) Urine Protein Negative (Negative) mg/dL Urine Glucose (UA) Negative (Negative) mg/dL Assessment and Plan Assessment and plan (1) Hypertensive emergency: Code(s): I16.1 - Hypertensive emergency Status: Acute Assessment and Plan: Hydralazine p.r.n. (2) Elevated troponin: Code(s): R79.89 - Other specified abnormal findings of blood chemistry Status: Acute Assessment and Plan: Cardiology consulted Trend troponin EKG p.r.n. Echocardiogram pending Stress test pending (3) Hyperthyroidism: Code(s): E05.90 - Thyrotoxicosis, unspecified without thyrotoxic crisis or storm Status: Acute Assessment and Plan: Waiting for nursing discharge med rec Quality VTE Prophylaxis VTE prophylaxis: mechanical ordered Hospitalist MIPS Advance Care Plan I have confirmed that the patient's Advanced Care Plan is present, code status is documented, or surrogate decision maker is listed in patient medical record.: Yes
--- NOTE | 2025-06-06 14:26 | ECHO_ITS ---
Patient Info Name: Jillian Damon Age: 40 years : 1985 Gender: Female Ht: 63 in Wt: 214 lbs BSA: 2.13 m2 HR: 89 bpm BP: 171 / 112 mmHg Heart Rhythm: Sinus Rhythm Technical Quality: Good Exam Date: 06/06/2025 3:12 PM Patient Status: I Admit Date: 06/06/2025 Exam Type: CA echo dop color flow w con Complete two-dimensional, color flow and Doppler transthoracic echocardiogram is performed with contrast to opacify the left ventricle and to improve the deliniation of the left ventricle endocardial borders. Staff Referring Physician: Zack Bae MD Wreath Maker: Francisca Cedeno Attending Provider: Nawaf Alfaro Contrast/Agitated Saline Contrast/Ag. Saline: Definity Amount: 2.00 ml Administered By: Francisca Cedeno Existing IV Access: Yes IV Access Condition: patent with no signs of infiltration Summary 1. Definity contrast utilized to improve visualization. 2. Moderate concentric LVH with mildly reduced or low normal systolic function and no wall motion abnormalities. 3. Grade 1 diastolic noncompliance. 4. Left atrial enlargement. 5. Mild MR. Left Ventricle Left ventricular systolic function is normal, estimated at 45-50. There is moderate concentric increased left ventricular wall thickness. The left ventricular diastolic function is grade I diastolic dysfunction. Right Ventricle Right ventricular chamber dimension is normal. Left Atria Left atrial chamber dimension is mildly enlarged. Right Atria Right atrial chamber dimension is normal. Aortic Valve The aortic valve is normal. Pulmonic Valve The pulmonic valve is not well visualized. Mitral Valve The mitral valve has normal leaflets. There is mild mitral valve regurgitation. Tricuspid Valve The tricuspid valve leaflets are normal. Pericardium/Pleural The pericardium appears normal. Aorta The aortic root size at the sinus of Valsalva is normal. Left Ventricular Outflow Tract Name Value Normal LVOT 2D LVOT Diameter 2.0 cm LVOT Doppler LVOT Peak Velocity 105 cm/s LVOT Peak Gradient 4 mmHg LVOT Mean Gradient 3 mmHg LVOT VTI 18 cm LVOT Stroke Volume 61 ml LVOT CO 5.4 l/min LVOT CI 2.5 l/min/m2 Pulmonic Valve Name Value Normal RVOT Doppler RVOT Peak Velocity 76 cm/s RVOT Peak Gradient 2 mmHg PV Doppler PV Peak Velocity 95 cm/s PV Peak Gradient 4 mmHg Mitral Valve Name Value Normal MV Diastolic Function MV E Peak Velocity 73 cm/s MV A Peak Velocity 101 cm/s MV E/A 0.7 MV Decel Time (PW) 362 ms MV Annular TDI MV E/e' (Septal) 8.5 MV E/e' (Lateral) 9.7 MV E/e' (Average) 9.1 Tricuspid Valve Name Value Normal TV Regurgitation Doppler TR Peak Velocity 228 cm/s TR Peak Gradient 20 mmHg Aortic Valve Name Value Normal AV Doppler AV Peak Velocity 144 cm/s AV Peak Gradient 8 mmHg AV Area (Cont Eq Frans[place]) 2.4 cm2 AV DI (Fr[place]isco) 0.73 AV Regurgitation 2D LVOT Area 3.3 cm2 Ventricles Name Value Normal LV Dimensions 2D/MM IVS Diastolic Thickness (2D) 1.4 cm 0.6-1.0 LVID Diastole (2D) 4.6 cm 3.8-5.2 LVIW Diastolic Thickness (2D) 1.8 cm 0.6-0.9 LVID Systole (2D) 3.4 cm 2.2-3.5 LVOT Diameter 2.0 cm LV Mass (2D Cubed) 316.72 g 67.00-162.00 LV Mass Index (2D Cubed) 149 g/m2 43-95 Relative Wall Thickness (2D) 0.79 <=0.42 LV Fractional Shortening/Ejection Fraction 2D/MM LV Fractional Shortening (2D) 26 % 27-45 LV EF (2D Teichholz) 50 % LV Diastolic Volume (4C MOD) 160 ml LV EF (4C MOD) 44 % LV Diastolic Volume (2C MOD) 149 ml LV EF (2C MOD) 47 % LV Diastolic Volume (BP MOD) 158 ml 46-106 LV Diastolic Volume Index (BP MOD) 74 ml/m2 29-61 LV Systolic Volume (BP MOD) 85 ml 14-42 LV Systolic Volume Index (BP MOD) 40 ml/m2 8-24 LV EF (BP MOD) 46 % 54-74 LV Diastolic Length (4C) 8.5 cm LV Systolic Length (4C) 7.4 cm LV Stroke Volume (4C MOD) 70 ml Atria Name Value Normal LA Dimensions LA Volume (4C A-L) 50 ml LA Volume (BP A-L) 52 ml RA Dimensions RA Systolic Major [place] Length (4C) 5.1 cm 2.2-2.8 RA Area (4C) 12.5 cm2 <=18.0 Report Signatures
--- NOTE | 2025-06-06 15:19 | PC.NURSE ---
Bedside echo being completed at this time.
[2025-06-06] MEDS: PERFLUTREN LIPID MICROSPHERES 1.5 ML VIAL DILUTED TO 10 ML TOTAL VOLUME IV PUSH (15:58)
--- NOTE | 2025-06-06 15:59 | IVDEFINITY ---
Prior to administration of IV Definity the patient was educated on the risks and benefits of the imaging enhancing agent including potential adverse side effects. The patient verbalized understanding. Allergies were verified. No exclusion criteria were identified and at least one of the following inclusion criteria were met: 1) physician request, 2) patient technically difficult to image (per the [place] [employer] Echocardi[employer] guidelines of two or more segments not discernable within the apical view), or 3) questionable left ventricular function. ?
[2025-06-06] MEDS: POTASSIUM CHLORIDE 20 MEQ PACKET (FOR LIQUID) 40 MEQ PO (16:09)
--- OUTSIDE RECORDS SUMMARY | 2025-06-06 16:23 | XMS_ITS | Clinical Summary ---
Author Organization [facility] Address [address] [place] [id number] Phone Care Team Providers Care Board Liner Operator Name Role Phone Elsa Marcial MD Primary Care Provider [phone] Allergies Active Allergy Reactions Criticality Noted Date [...] Comments Blood Pressure 189/126 01/17/2024 9:13 AM MECHANICAL FITTER did not take blood pressure medication this morning. Pulse 103 01/17/2024 9:11 AM MECHANICAL FITTER Temperature 36.7 C (98 F) 01/17/2024 9:11 AM MECHANICAL FITTER Respiratory Rate 14 01/17/2024 9:11 AM MECHANICAL FITTER Oxygen Saturation 97% 01/17/2024 9:1 1 AM MECHANICAL FITTER Inhaled Oxygen Concentration - - Weight 94.2 kg (207 lb 9.6 oz) 01/17/2024 9:11 AM MECHANICAL FITTER Height 160 cm (5' 3) 12/14/2023 11:28 AM MECHANICAL FITTER Body Mass Index 36.77 12/14/2023 11:28 AM MECHANICAL FITTER Plan of Treatment Health Maintenance Due Date [...] complete this topic Insurance [employer] ACCESS [employer] [facility] ACC[facility] Address: [address] [phone] [facility] OPEN ACCESS Care Teams Board Liner Operator Relationship Specialty Start Date End Date Elsa Marcial MD [address] [facility] [address] [place] [address] PCP - General Family Practice 12/14/23
--- OUTSIDE RECORDS SUMMARY | 2025-06-06 16:23 | XMS_ITS | Clinical Summary ---
Author Organization [facility] Address [address] [place] [address] Care Team Providers Care Band Booker Name Role Phone Melodie Barrera Primary Care Provider [phone] Source Comments [facility],non-[facility] Affiliates and Associated Physician Practices is amultiple site organization consisting of ambulatory clinics and hospital sitesin [place], [place], [place] and [place]. This disclosure is being madepursuant to the Care Everywhere program and may not contain all information available regarding this patient. 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 Gender Identity Not on file Sexual [...] patient's age to complete this topic Insurance [facility] [place]: [facility] [id number] [place] [address] SELF PAY NO INSURANCE Member Subscriber Plan / Payer (Ef fective for All Dates) Name:Dior Larson Member ID:Not on file Relation to Subscriber:Not on file Name:DIOR LARSON Subscriber ID:Not on file Address: [address] [place] [address] Payer ID:Not on file Group ID:Not on file Type:Self Pay Address: [place], [place] Member Subscriber Plan / Payer (Ef fective for All Dates) Name:MarshaShabnam cokeromaira Clement Member ID:Not on file Relation to Subscriber:Not on file Name:MARSHA,DIOR Subscriber ID:Not on file Address: [address] [place] [address] Payer ID:Not on file Group ID:Not on file Type:Self Pay Address: [place], [place] [address] SELF PAY NO INSURANCE Member Subscriber Plan / Payer (Ef fective for All Dates) Name:MarshaShabnam cokerica D Member ID:Not on file Relation to Subscriber:Not on file Name:DIOR LARSON Subscriber ID:Not on file Address: [address] [place] [address] Payer ID:Not on file Group ID:Not on file Type:Self Pay Address: [place], [place] Care Teams Band Booker Relationship Specialty Start Date End Date Melodie Barrera PA [address] [place] [address] PCP - General 04/23/19
--- OUTSIDE RECORDS SUMMARY | 2025-06-06 16:23 | XMS_ITS | Clinical Summary ---
Author Organization [facility] [address] Address [address] [place] [address] Phone Care Team Providers Care Program Facilitator Name Role Phone Elsa Marcial MD Primary [...] Description 03/14/2025 11:30 AM CDT Office Visit [facility] Cardiology [address] [place] [phone] Miller Stephens MD Lipid screening (Primary Dx); Chest pain, unspecified type; Essential hypertension; Severe obesity (HCC) 03/08/2025 1:42 PM CDT - 03/08/2025 7:02 PM CDT Emergency [facility] 1 [place] [address] Kelly Dao MD Abdominal pain (Primary Dx); [...] on file 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 [facility]. 2. 2009 - Repeat c/s. [employer]. 3. 2013 - Repeat c/s. Dense adhesions of uterus to anterior abdomen. Unable to perform BTL. [facility]. Last Filed Vital Signs Vital [...] Pablo Cavazos M.D. KT: KT Report ID: [id number] Reading Location: [id number] Procedure Note Pablo Cavazos MD - 03/08/2025 [...] Pablo Cavazos M.D. KT: KM Report ID: [id number] Reading Location: [place] [address] us Kelly Dao MD IMG CT PROCEDURES [...] MD LAB BLOOD ORDERABLES Vanessa l Result [facility] ([place]) 1 [facility] [place] [address] * (ABNORMAL) Urinalysis reflex to microscopic and [...] tendency for uric acid stone formation. Source: [facility] riskmethods Current Interpretive Data was last revised on [...] L ORDERABLES Final Result Performing Organization Address [facility]/ZIP Co de Phone Number [facility] ([place]) 1 [facility] Department [place] [address] * (ABNORMAL) Urinalysis, microscopic only (03/08/2025 1:02 PM CDT) WBC, ur 11-20(A) 0 - 5 /HPF RBC, ur 0-2 0 - 2 /HPF [facility] ([place]) Epithelial cells, squamous, ur 1-5 0 - 5 /HPF [facility] ([place]) Mucous, ur Present(A) [facility] ([place]) Hyaline casts, ur 6-10 0 - 10 /LPF [facility] ([place]) Culture Reflex Comment Reflex to urine culture will be performed. [facility] ([place]) Urine 03/08/2025 1:02 PM CDT 03/08/2025 1:04 PM CDT Kelly Dao MD LAB URINE ORDERABLES Vanessa l Result Performing Organization Address [facility]/ZIP Co de Phone Number [facility] ([place]) 1 [facility] Department [place] [address] * Urine culture Urine (03/08/2025 1:02 PM CDT) Report Final Report: Less than 100,000 colonies/mL (clinically insignificant growth based on current clinical standards) Comment:Testing performed by : [facility], [address] [facility], [place]., [address] Organism (CLINICALLY INSIGNIFICANT GROWTH [facility] ([place]) Urine 03/08/2025 1:02 PM CDT 03/08/2025 4:30 PM CDT Narrative [facility] ([place]) - 03/09/2025 6:34 PM CDT Urine culture reflexed based upon urinalysis results. Testing performed by [facility] Microbiology Laboratory ([phone]) us Dirk Campbell MD LAB MICROBIOLOGY - GENERAL O RDERABLES Final Result [facility] ([place]) 1 [facility] Department [place] [address] * eGFR (03/08/2025 12:56 PM CDT) eGFR [...] BLOOD ORDERABLES Vanessa l Result [facility] ([place]) 1 [facility] [place] [address] * Differential, auto (03/08/2025 12:56 PM CDT) [...] Vanessa l Result [facility] ([place]) 1 [facility] [place] [address] * (ABNORMAL) CBC with auto differential (03/08/2025 [...] Vanessa l Result [facility] ([place]) 1 [facility] [place] [address] * Lipase (03/08/2025 12:56 PM CDT) Pathologist [facility] Lipase 24 10 - 99 Units/L Comment:[address] ([place]) Blood Venous blood specimen / Unknown 03/08/2025 12:56 PM CDT 03/08/2025 1:04 PM CDT us Kelly Dao MD LAB BLOOD ORDERABLES Vanessa bennett Result [facility] ([place]) 1 [facility] Department [place] [address] * (ABNORMAL) Comprehensive metabolic panel (03/08/2025 12:56 PM CDT) Sodium 140 135 - 145 mmol/L Comment:Berta Rudd (ER) Potassium, pl 2.8(C) 3.3 - 4.9 mmol/L [facility] ([place]) Comment:Critical Result call ed by [email or web address] at 2025-03-08 13:39:41. Result Read Back by Berta Rudd (ER) Chloride 100 97 - 110 mmol/L [facility] ([place]) Comment:Berta Rudd (ER) CO2 27 22 - 32 mmol/L [facility] ([place]) Comment:Berta Rudd (ER) Anion gap 13 2 - 15 mmol/L [facility] ([place]) Comment:[facility] (ER) BUN 9 6 - 25 mg/dL [facility] ([place]) Comment:Bertakrista Rudd (ER) Creatinine 0.78 0.60 - 1.10 mg/dL [facility] ([place]) Comment:[facility] (ER) Glucose 123 70 - [...] - 10.3 mg/dL [facility] ([place]) Comment:[facility] (ER) Bilirubin, total 0.7 0.1 - 1.2 mg/dL [facility] ([place]) Comment:[address] ([place]) Protein, pl 7.5 6.5 - 8.5 g/dL [facility] ([place]) Comment:[address] ([place]) Albumin 4.3 3.5 - 5.0 g/dL [facility] ([place]) Comment:[address] ([place]) Alk phos 103 40 - 130 Units/L [facility] ([place]) Comment:[address] ([place]) ALT 19 7 - 45 Units/L [facility] ([place]) Comment:[address] ([place]) AST 19 10 - 45 Units/L [facility] ([place]) Comment:[address] (ER) Blood 03/08/2025 12:5 6 PM CDT 03/08/2025 1:04 PM CDT us Kelly Dao MD LAB BLOOD ORDERABLES Vanessa l Result [facility] ([place]) 1 [facility] Department [place] [address] * Hepatitis C antibody (05/26/2018 2:39 PM CDT) Hep C Ab NON-REACTI VE NON-REACTI VE [facility] [place] SIGNAL TO CUT-OFF 0.01 <1.00 [facility] [place] Blood specimen (specimen) 05/26/2018 2:39 PM CDT 05/26/2018 2:42 PM CDT Narrative Resulting Agency Comment Performing Organization Information: Site ID: [id number] Name: [facility] Address: [address] [address] Director: Zack Westfall D.O., MPH us Kendy Coffman MD LAB MICROBIOLOGY - NERAL ORDERABLES Final Result [facility] - [place] * ThinPrep Imaging Pap and HPV mRNA E6/E7, Chlamydia/N.Gonorrhoeae (05/26/2018 11:12 AM CDT) Report status CANCELED [facility] [place] Comment:Result canceled by t he ancillary CLINICAL INFORMATION: [facility] [place] LMP 03/05/18 [facility] - Previous Pap NONE GIVEN [facility] [place] Prev. Bx NONE GIVEN [facility] [place] SOURCE: [facility] [place] Comment:Cervix, Endocervix Pap, specimen adequacy [facility] - Comment: Satisfactory for evaluation. Endocervical/transformation zone component absent. Pap, general categorization CANCELED [facility] [place] Comment:Result canceled by t he ancillary HPV interp [facility] [place] Comment:Negative for intraep ithelial lesion or malignancy. Infection: CANCELED [facility] [place] Comment:Result canceled by t he ancillary COMMENTS [facility] [place] Comment: This Pap test has been evaluated with computer assisted technology. [facility] - Comment: BLG, CT(ASCP) CT screening location: [place] [address] [place] [address] Review coroner/medical examiner CANCELED [facility] - Comment:Result canceled by t he ancillary Pathologist [facility]ED [facility] [place] Comment:Result canceled by t he ancillary Comment [facility] - Comment: EXPLANATORY NOTE: The [...] High Risk E6/E7 Not Detected Not Detected [facility] [place] Comment: This test was performed using the APTIMA HPV Assay ([employer] This assay detects E6/E7 viral messenger RNA (mRNA) from 14 high-risk HPV types (16,18,31,33,35,39,45,51,52,56,58,59,66,68). The analytical performance characteristics of this assay have been determined by [facility]. The modifications have not been cleared or approved by the FDA. This assay has been validated pursuant to the CLIA regulations and is used for clinical purposes. C. trachomatis RNA NOT DETECTED NOT DETECTED [facility] - N. gonorrhoeae RNA NOT DETECTED NOT DETECTED [facility] [place] Comment [facility] - Comment: This test was performed using the APTIMA COMBO2 Assay ([employer] The analytical performance characteristics of this assay, when used to test SurePath specimens have been determined by [facility]. 05/26/2018 11:1 2 AM CDT 05/30/2018 5:02 AM CDT Narrative Resulting Agency Comment Performing Organization Information: Site ID: [id number] Name: [facility] Address: [address] [address] Director: Zack Westfall D.O., MPH Site ID: [id number] Name: [facility] Address: [address] [place] [address] Director: John Richardson Kendy Coffman MD LAB PATHOLOGY ORDERAB LES Final Result [facility] [place], [place] [facility] [place] DAVID from Last 3 Months or Most Recently Relevant to Health Maintenance Insurance [facility] IDPA NICOLE JAYATERRENCE CIGMISAEL LAKETERRENCE Care Teams Program Facilitator Relationship Specialty Start Date End Date Elsa Marcial MD [address] [facility] [address] [place] [address] PCP - General Family Medicine 09/28/24
--- OUTSIDE RECORDS SUMMARY | 2025-06-06 16:23 | XMS_ITS | Referral Summary ---
Author Organization [facility] [address] Address 1 [place] [address] Phone Care Team Providers Care Grounds Worker Name Role Phone Elsa Marcial MD Primary Care Provider Encounters Date Type Department Care Team Description 03/14/2025 11:30 AM CDT Office Visit [facility] Cardiology [address] [place] [phone] Miller Stephens MD Lipid screening (Primary Dx); Chest pain, unspecified type; Essential hypertension; Severe obesity (HCC) 03/08/2025 1:42 PM CDT - 03/08/2025 7:02 PM CDT Emergency [facility] Emergency Department [address] [place] [address] Kelly Dao MD Abdominal pain (Primary Dx); [...] on file 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 KT: KM Report ID: [id number] Reading Location: [id number] Procedure Note Pablo Cavazos MD - 03/08/2025 [...] Pablo Cavazos M.D. KT: KT Report ID: [id number] Reading Location: [place] [address] us Kelly Dao MD IMG CT PROCEDURES Final R esult * POCT hCG, urine (03/08/2025 4:05 PM CDT) Pathologist [facility] HCG, ur, POC Negative Negative Lot Number [id number] QC Backgroud Clear Acceptable QC Control Line Acceptable Urine 03/08/2025 4:05 PM CDT us Kelly Dao MD POINT OF CARE TEST ORDERA BLES Final Result * Sepsis Lactate w/ Reflex (03/08/2025 2:48 PM CDT) [facility] Sepsis Lactate 1.2 0.7 - 2.0 mmol/L Blood 03/08/2025 2:48 PM CDT 03/08/2025 2:55 PM CDT us Kelly Dao MD LAB BLOOD ORDERABLES Vanessa l Result [facility] [place] 1 [facility] [place] [address] * (ABNORMAL) Urinalysis reflex to microscopic and [...] tendency for uric acid stone formation. Source: [facility] Current Interpretive Data was last revised [...] - GENERA L ORDERABLES Final Result [facility] ([place]) 1 [facility] [place] [address] * (ABNORMAL) Urinalysis, microscopic only (03/08/2025 1:02 PM CDT) WBC, ur 11-20(A) 0 - 5 /HPF RBC, ur 0-2 0 - 2 /HPF [facility] ([place]) Epithelial cells, squamous, ur 1-5 0 - 5 /HPF [facility] ([place]) Mucous, ur Present(A) [facility] ([place]) Hyaline casts, ur 6-10 0 - 10 /LPF [facility] ([place]) Culture Reflex Comment Reflex to urine culture will be performed. [facility] ([place]) Urine 03/08/2025 1:02 PM CDT 03/08/2025 1:04 PM CDT Kelly Dao MD LAB URINE ORDERABLES Vanessa l Result Performing Organization Address City/[facility]/ZIP Co de Phone Number [facility] ([place]) 1 [facility] Department [place] [address] * Urine culture Urine (03/08/2025 1:02 PM CDT) Report Final Report: Less than 100,000 colonies/mL (clinically insignificant growth based on current clinical standards) Comment:Testing performed by : [facility], 1 [place]., [address] Organism (CLINICALLY INSIGNIFICANT GROWTH [facility] ([place]) Urine 03/08/2025 1:02 PM CDT 03/08/2025 4:30 PM CDT Narrative [facility] ([place]) - 03/09/2025 6:34 PM CDT Urine culture reflexed based upon urinalysis results. Testing performed by [facility] Microbiology Laboratory ([phone]) us Dirk Campbell MD LAB MICROBIOLOGY - GENERAL O RDERABLES Final Result Performing Organization Address City/[facility]/ZIP Co de Phone Number [facility]A [facility] ([place]) 1 [facility] [place] [address] * eGFR (03/08/2025 12:56 PM CDT) eGFR [...] BLOOD ORDERABLES Vanessa bennett Result [facility] ([place]) 1 [facility] Department [place] [address] * Differential, auto (03/08/2025 12:56 PM CDT) [...] Vanessa bennett Result [facility] ([place]) 1 [facility] [place] [address] * (ABNORMAL) CBC with auto differential (03/08/2025 [...] MCV 89.3 81.3 - 96.[address] [facility] ([place]) MCH 31.3 27.1 - 33.[address] [facility] ([place]) MCHC 35.1 32.3 - 35.7 g/dL [facility] ([place]) RDW CV 13.5 11.1 - 14.9 % [facility] ([place]) RDW SD 44.1 35.7 - 48.[address] [facility] ([place]) NRBC abs 0.00 0.00 - 0.01 K/cumm [facility] ([place]) Blood Venous blood specimen / Unknown 03/08/2025 12:56 PM CDT 03/08/2025 1:04 PM CDT Kelly Dao MD LAB BLOOD ORDERABLES Vanessa l Result [facility] ([place]) 1 [facility] [address] [place] [address] * Lipase (03/08/2025 12:56 PM CDT) Pathologist [facility] Lipase 24 10 - 99 Units/L Comment:Bertakrista Rudd ([place]) Blood Venous blood specimen / Unknown 03/08/2025 12:56 PM CDT 03/08/2025 1:04 PM CDT Kelly Dao MD LAB BLOOD ORDERABLES Vanessa l Result [facility] ([place]) 1 [facility] [place] [address] * (ABNORMAL) Comprehensive metabolic panel (03/08/2025 12:56 PM CDT) Pathologist [facility] Sodium 140 135 - 145 mmol/L Comment:Bertakrista Rudd ([place]) Potassium, pl 2.8(C) 3.3 - 4.9 mmol/L [facility] ([place]) Comment:Critical Result call ed by [email or web address] at 2025-03-08 13:39:41. Result Read Back by Berta Rudd ([place]) Chloride 100 97 - 110 mmol/L [facility] ([place]) Comment:[facility] ([place]) CO2 27 22 - 32 mmol/L [facility] ([place]) Comment:[facility] ([place]) Anion gap 13 2 - 15 mmol/L [facility] ([place]) Comment:[facility] ([place]) BUN 9 6 - 25 mg/dL [facility] ([place]) Comment:[facility] ([place]) Creatinine 0.78 0.60 - 1.10 mg/dL [facility] ([place]) Comment:[facility] ([place]) Glucose 123 70 - 199 mg/dL [facility] ([place]) Comment: [facility] ([place]) Interpretive Data Fasting glucose >/= 126 [...] 8.5 - 10.3 mg/dL [facility] ([place]) Comment:[facility] ([place]) Bilirubin, total 0.7 0.1 - 1.2 mg/dL [facility] ([place]) Comment:[facility] ([place]) Protein, pl 7.5 6.5 - 8.5 g/dL [facility] ([place]) Comment:[facility] ([place]) Albumin 4.3 3.5 - 5.0 g/dL [facility] ([place]) Comment:[facility] ([place]) Alk phos 103 40 - 130 Units/L [facility] ([place]) Comment:[facility] ([place]) ALT 19 7 - 45 Units/L [facility] ([place]) Comment:[facility] ([place]) AST 19 10 - 45 Units/L [facility] ([place]) Comment:[facility] ([place]) Blood 03/08/2025 12:5 6 PM CDT 03/08/2025 1:04 PM CDT us Kelly Dao MD LAB BLOOD ORDERABLES Vanessa l Result [facility] ([place]) 1 [facility] [place] [address] * Hepatitis C antibody (05/26/2018 2:39 PM CDT) Hep C Ab NON-REACTI VE NON-REACTI VE [facility] [place] SIGNAL TO CUT-OFF 0.01 <1.00 [facility] [place] Blood specimen (specimen) 05/26/2018 2:39 PM CDT 05/26/2018 2:42 PM CDT Narrative Resulting Agency Comment Performing Organization Information: Site ID: [place] Name: [facility] Address: [address] [place] [address] Director: Zack Westfall D.O., MPH Kendy Coffman MD LAB MICROBIOLOGY - GE NERAL ORDERABLES Final Result [facility] [place] * ThinPrep Imaging Pap and HPV [...] has been evaluated with computer assisted technology. Market Research Manager [facility] - Comment: BLG, CT(ASCP) CT screening location: [place] [address] [place] [address] Review on site property manager CANCELED [facility] [place] Comment:Result canceled [...] High Risk E6/E7 Not Detected Not Detected [facility] [place] Comment: This test was performed using the APTIMA HPV Assay ([employer] This assay detects E6/E7 viral messenger RNA (mRNA) from 14 high-risk HPV types (16,18,31,33,35,39,45,51,52,56,58,59,66,68). The analytical performance characteristics of this assay have been determined by [facility]. The modifications have not been cleared or [...] was performed using the APTIMA COMBO2 Assay ([employer] The analytical performance characteristics of this assay, when used to test SurePath specimens have been determined by [facility]. 05/26/2018 11:1 2 AM CDT 05/30/2018 5:02 AM CDT Narrative Resulting Agency Comment Performing Organization Information: Site ID: [place] [facility]: [facility] Address: [address] [place] [address] Director: Zack Westfall D.O., MPH Site ID: [id number] [facility]: [facility] Address: [address] [place] [address] Director: John Richardson us Kendy Coffman MD LAB PATHOLOGY ORDERAB LES Final Result [facility] - [place], [place] [facility] [place], [place] from Last 3 Months or Most Recently Relevant to Health Maintenance Insurance [facility]PA CIGNA ALLEGIANCE NICOLE [place] Care Teams Grounds Worker Relationship Specialty Start Date End Date Elsa Marcial MD [address] [facility] [address] [place] [address] PCP - General Family Medicine 09/28/24
--- OUTSIDE RECORDS SUMMARY | 2025-06-06 16:23 | XMS_ITS | Clinical Summary ---
Author Organization [facility] Address [address] [place] [address] Phone Care Team Providers Care Webbing Inspector Name Role Phone Bj Rodriguez MD Primary Care Provider [phone] Allergies Active Allergy Reactions Criticality Noted Date [...] CDT - 06/04/2025 1:54 AM CDT [facility] [address] [place] [id number] Lito Jansen MD Chest pain, unspecified type Discharge Disposition: Discharged to home or Selfcare 06/03/2025 Travel 03/08/2025 11:25 AM CDT Urgent Care [facility] [place] [address] [place] [address] Maryan Cormier APRN, CNP Nausea [...] 25(H) <=14 ng/L 06/04/2025 1:07 AM CDT [facility] Comment: High-sensitivity troponin I results are reported in ng/L making the result appear to be 1,000 times higher than the contemporary troponin I value which is reported in ng/ml. Results from [facility]. 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 HX: Smoker, HTN TECHNIQUE: Portable upright AP [...] Butch Black M.D. 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 HX: Smoker, HTN TECHNIQUE: Portable upright AP [...] Butch Black M.D. AR: JEFF Report ID: [id number] Reading Location: [id number] IMPRESSION: No acute abnormality identified within limits of low inspiratory volume portable technique. us Lito Jansen MD IMG DIAGNOSTIC ORDERABLES Final Result * NT-proBNP (06/03/2025 10:07 PM CDT) NT PROBNP 108.8 <450.0 pg/mL 06/03/2025 11:02 PM CDT [facility] Comment: AGE pg/mL INTERPRETATION All <300 [...] Jansen MD CHEMISTRY ORDERABLES Vanessa l Result [facility] [address] [place] [address] * (ABNORMAL) CBC with Auto Differential (06/03/2025 10:07 PM CDT) WBC 9.84 4.00 - 12.00 10(3)/mcL 06/03/2025 10:26 PM CDT [facility] RBC 3.95 3.80 - 5.30 10(6)/mcL 06/03/2025 10:26 PM CDT [facility] HEMOGLOBIN (HGB) 12.4 12.0 - 15.8 g/dL 06/03/2025 10:26 PM CDT [facility] HEMATOCRIT (HCT) 36.5 36.0 - 47.0 % 06/03/2025 10:26 PM CDT [facility] MCV 92.4 82.0 - 96.0 fL 06/03/2025 10:26 PM CDT [facility] MCH 31.4 26.0 - 34.0 pg 06/03/2025 10:26 PM CDT [facility] MCHC 34.0 31.0 - 36.0 g/dL 06/03/2025 10:26 PM CDT [facility] PLATELET COUNT 394 140 - 440 10(3)/mcL 06/03/2025 10:26 PM CDT [facility] RDW 13.5 11.8 - 15.5 % 06/03/2025 10:26 PM CDT [facility] MPV 9.5(L) 9.7 - 12.4 fL 06/03/2025 10:26 PM CDT [facility] NEUTROPHILS 66.5 47.0 - 73.0 % 06/03/2025 10:26 PM CDT [facility] LYMPHOCYTES 25.4 18.0 - 42.0 % 06/03/2025 10:26 PM CDT [facility] MONOCYTES 4.7 4.0 - 12.0 % 06/03/2025 10:26 PM CDT [facility] EOSINOPHILS 2.7 0.0 - 5.0 % 06/03/2025 10:26 PM CDT [facility] BASOPHILS 0.3 0.0 - 1.0 % 06/03/2025 10:26 PM CDT [facility] IMMATURE GRANULOCYTE 0.4 0.0 - 0.4 % 06/03/2025 10:26 PM CDT [facility] Comment:Immature Granulocyte s includes Metamyelocytes, Myelocytes, and Promyelocytes. ABSOLUTE NEUTROPHILS 6.54 1.60 - 7.70 10(3)/mcL 06/03/2025 10:26 PM CDT [facility] ABSOLUTE LYMPHOCYTES 2.50 1.30 - 3.20 10(3)/mcL 06/03/2025 10:26 PM CDT [facility] ABSOLUTE MONOCYTES 0.46 0.20 - 1.00 10(3)/mcL 06/03/2025 10:26 PM CDT [facility] ABSOLUTE EOSINOPHIL 0.27 0.00 - 0.40 10(3)/mcL 06/03/2025 10:26 PM CDT [facility] ABSOLUTE BASOPHILS 0.03 0.00 - 0.10 10(3)/mcL 06/03/2025 10:26 PM CDT [facility] ABSOLUTE IMMATURE GRANULOCYTE 0.04(H) 0.00 - 0.03 10 (3) [facility]. 06/03/2025 10:26 PM CDT [facility] NRBC PER 100 WBC 0 06/03/20 10:26 PM CDT [facility] Blood Venipuncture / Unknown 06/03/2025 10:07 PM CDT 06/03/2025 10:23 PM CDT us Lito Jansen MD HEMATOLOGY ORDERABLES Fin al Result [facility] [address] [place] [address] * Thyroid Stimulating Hormone (TSH) (06/03/2025 10:07 PM CDT) TSH 0.886 0.300 - 5.000 mIU/L 06/03/2025 11:02 PM CDT [facility] Blood Venipuncture / Unknown 06/03/2025 10:07 PM CDT 06/03/2025 10:23 PM CDT Lito Jansen MD CHEMISTRY ORDERABLES Vanessa l Result [facility] [address] [place] [address] * APTT (PTT) (06/03/2025 10:07 PM CDT) PTT 26 24 - 36 sec 06/03/2025 10:47 PM CDT [facility] Blood Venipuncture / Unknown 06/03/2025 10:07 PM CDT 06/03/2025 10:23 PM CDT Narrative [facility] - 06/03/2025 10:47 PM CDT Therapeutic range for unfractionated heparin at 0.3-0.7 U/mL is an aPTT value in the range of 71-100 seconds. Critical value for the PTT test is >= 122 seconds. us Lito Jansen MD HEMATOLOGY ORDERABLES Fin al Result [facility] [address] [place] [address] * PT / INR (06/03/2025 10:07 PM CDT) Pathologist [facility] PROTIME-PATIENT 13.5 11.6 - 14.8 sec 06/03/2025 10:47 PM CDT [facility] INR 1.0 0.9 - 1.2 06/03/2025 10:47 PM CDT [facility] Comment: Therapeutic Ranges INR = 2.0-3.0: Venous thromb, atrial fib, pul embolism, tissue heart valve, ami. INR = 2.5-3.5: Mechanical heart valve Critical value for INR is >/= 4.5 Blood Venipuncture / Unknown 06/03/2025 10:07 PM CDT 06/03/2025 10:23 PM CDT us Lito Jansen MD HEMATOLOGY ORDERABLES Camron knight Result [facility] [address] [place] [address] * Human Chorionic Gonadotropin Scrn Serum [id number] (06/03/2025 10:07 PM CDT) Pathologist [facility] PREG-HCG Negative Negative 06/03/2025 10:39 PM CDT [facility] Blood Venipuncture / Unknown 06/03/2025 10:07 PM CDT 06/03/2025 10:23 PM CDT us Lito Jansen MD CHEMISTRY ORDERABLES Vanessa l Result Performing Organization Address [facility] Co de Phone Number [facility] [address] [place] [address] * D-Dimer (06/03/2025 10:07 PM CDT) [facility] D DIMER 0.34 <0.50 mcg/mL FEU 06/03/2025 10:47 PM CDT [facility] Blood Venipuncture / Unknown 06/03/2025 10:07 PM CDT 06/03/2025 10:23 PM CDT Narrative [facility] - 06/03/2025 10:47 PM CDT The FDA has approved this method to exclude the diagnosis of DVT and/or PE at the cutoff value of <0.50 mcg/mL FEU. us Lito Jansen MD HEMATOLOGY ORDERABLES Fin al Result Performing Organization Address [facility] de Phone Number [facility] [address] [place] [address] * (ABNORMAL) CMP (Comprehensive Metabolic Panel) (06/03/2025 10:07 PM CDT) [facility] SODIUM 141 136 - 145 mmol/L 06/03/2025 10:51 PM CDT [facility] POTASSIUM 2.7(LL) 3.5 - 5.1 mmol/L 06/03/2025 10:51 PM CDT [facility] CHLORIDE 103 98 - 107 mmol/L 06/03/2025 10:51 PM CDT [facility] CO2, VENOUS 28 22 - 30 mmol/L 06/03/2025 10:51 PM CDT [facility] ANION GAP 12.7 <18.0 mmol/L 06/03/2025 10:51 PM CDT [facility] GLUCOSE 116(H) 70 - 99 mg/dL 06/03/2025 10:51 PM CDT [facility] BUN 14 5 - 18 mg/dL 06/03/2025 10:51 PM CDT [facility] CREATININE, BLOOD 0.87 0.60 - 1.00 mg/dL 06/03/2025 10:51 PM CDT [facility] BUN/CREATININE RATIO 16 12 - 20 ratio 06/03/2025 10:51 PM CDT [facility] TOTAL PROTEIN 7.4 6.0 - 8.0 g/dL 06/03/2025 10:51 PM CDT [facility] ALBUMIN 4.3 3.5 - 5.0 g/dL 06/03/2025 10:51 PM CDT [facility] A/G RATIO 1.4 1.0 - 2.2 06/03/2025 10:51 PM CDT [facility] CALCIUM 9.5 8.7 - 10.5 mg/dL 06/03/2025 10:51 PM CDT [facility] T BILI 0.7 0.2 - 1.2 mg/dL 06/03/2025 10:51 PM CDT [facility] SGOT (AST) 21 <43 U/L 06/03/2025 10:51 PM CDT [facility] SGPT (ALT) 17 <56 U/L 06/03/2025 10:51 PM CDT [facility] ALKALINE PHOSPHATASE 81 40 - 150 U/L 06/03/2025 10:51 PM CDT [facility] GFR, ESTIMATED >60 >=60 06/03/2025 10:51 PM CDT [facility] Comment: Creatinine Clearance is the preferred criteria for selecting drug dose adjustments in renally impaired patients. The GFR is provided as additional pertinent clinical information. GFR is reported in mL/min/1.73 sq m. Calculation based on the Chronic Kidney Disease Epidemiology Collaboration (CKD- EPI) equation refit without adjustment for race. GFR, EST. >60 >=60 025 10:51 PM CDT [facility] GFR, EST. NONAFRICAN >60 >=60 06/03/2025 10:51 PM CDT [facility] Blood Venipuncture / Unknown 06/03/2025 10:07 PM CDT 06/03/2025 10:23 PM CDT us Lito Jansen MD CHEMISTRY ORDERABLES Vanessa l Result Performing Organization Address [facility] Co de Phone Number [facility] [address] [place] [address] * EKG SCAN (06/03/2025 12:00 AM CDT) 06/03/2025 us Provider Scan IMG ECG ORDERABLES Final Result Performing Organization Address [facility] Co de Phone Number RESULTING AGENCY * POC INFLUENZA A AND B BY MOLECULAR (03/08/2025 11:40 AM CDT) INFLUENZA A RNA Negative Negative, Invalid INFLUENZA B RNA Negative Negative, Invalid PROCEDURE CONTROL Valid 03/08/2025 11:4 0 AM CDT us Maryan Cormier PIPELINE SYSTEMS OPERATOR, SOLDERER ELECTRONIC POINT OF CARE TESTI NG (MANUAL) Final Result from Last 3 Months Insurance [employer] Care Teams Webbing Inspector Relationship Specialty Start Date End Date Bj Rodriguez MD [address] [place] [address] PCP - General Internal Medicine 01/03/17
--- NOTE | 2025-06-06 16:52 | ECG_ITS ---
Test Date: 2025-06-06 17:07:40 Measurements Intervals [place] Rate: 94 P: 8 AK: 152 QRS: 25 QRSD: 92 T: 76 QT: 371 QTc: 465 Interpretive Statements SINUS RHYTHM NONSPECIFIC INTRAVENTRICULAR CONDUCTION DELAY BORDERLINE ECG Compared to ECG 06/06/2025 11:52:38 NO SIGNIFICANT DIFFERENCE Electronically Signed On 06-07-2025 07:34:40 CDT by Miller Stephens M.D.
--- NOTE | 2025-06-06 17:50 | ADMGEN ---
This patient, Jillian Damon, was admitted to IMU Room 232-01. Patient/family oriented to hospital policies and general routines including ID bracelet, bed and alarms, visiting hours, pain management, procedures, bathroom and other care routines, personal items, smoking policy, room service/diet, and visiting hours. Information on how to activate the Rapid Response Team has been discussed. Patient/Family are encouraged to report perceived risks to care and to ask questions if they do not understand what they are told or what they should do.
[2025-06-06 19:07] LABS: Troponin I 0.014 ng/mL (0.000-0.034)
[2025-06-06 21:03] LABS: Cholesterol 158 mg/dL (0-200); HDL Direct 36 mg/dL; Triglycerides 151 mg/dL (<150)
[2025-06-06 21:17] LABS: Troponin I 0.014 ng/mL (0.000-0.034)
[2025-06-07] VITALS (11 sets, daily range): BP systolic 145–175; BP diastolic 94–110; PULSE 78–93; RESP 18–20; TEMP 36.6–36.9; O2SAT 97–99
[2025-06-07 04:18] LABS: Hematocrit 36.5 % (37.0-47.0); Hemoglobin 11.8 g/dL (12.0-15.0); Immature Granulocyte Percent A 0.3 % (0-0.5); Lymphocytes Absolute Auto 2.71 K/mm3 (0.9-3.2); Mean Corpuscular HGB Conc 32.3 g/dl (32-36); Mean Corpuscular Hemoglobin 31.2 pg (26-34); Mean Corpuscular Volume 96.6 fl (80-100); Nucleated Red Blood Cells Absolute Auto 0.000 K/mm3 (0.0-0.012); Nucleated Red Blood Cells Perc 0.0 % (0.0-0.2); Platelet Count Result 344 k/mm3 (150-375); Red Blood Count 3.78 M/mm3 (4.2-5.4); White Blood Count 7.8 K/mm3 (4.5-10.0)
[2025-06-07 04:40] LABS: Anion Gap 7 mmol/L (4-12); Blood Urea Nitrogen 14 mg/dL (7-17); Calcium 8.8 mg/dL (8.4-10.2); Carbon Dioxide 25 mmol/L (22-30); Chloride 106 mmol/L (98-107); Estimated CRCL calculation 98 ml/min; Estimated Glomerular Filt Rate > 60; Glucose 103 mg/dL (65-110); Potassium 3.4 mmol/L (3.4-5.0); Sodium 138 mmol/L (137-145)
[2025-06-07] MEDS: IRBESARTAN 150 MG TABLET 300 MG PO (08:30)
[2025-06-07] MEDS: ASPIRIN 81 MG ENTERIC TABLET PO (08:31)
[2025-06-07] MEDS: TRIAMTERENE 37.5 MG/HCTZ 25 MG (MAXZIDE) TABLET 1 TAB BY MOUTH (08:31)
--- NOTE | 2025-06-07 09:48 | PCCARD ---
WAITING FOR CARDIOLOGY CONSULT TO DO STRESS TEST. THE TREADMILL STRESS ORDERED MAY NEED TO BE CHANGED TO A NON-WALKING STRESS TEST DUE TO PATIENT'S BP. 8:00AM BP WAS TOO HIGH TO WALK THE PATIENT SAFELY (176/110).
--- NOTE | 2025-06-07 12:00 | PC.NURSE ---
Spoke with stress medical lab specialist who states Dr Breen is ok with an outpatient stress test and would be around to see the patient between [phone]. Pt has been NPO to this point. Notified Dr Zepeda who gave order to downgrade and to allow the patient to eat. and he will be rounding on the patient.
--- NOTE | 2025-06-07 13:51 | PC.NURSE ---
PT requests to leave AMA. Dr Zepeda notified. IV removed, monitor removed. AMA paperwork signed
--- NOTE | 2025-06-07 13:58 | PCCARD ---
SPOKE WITH DR ALVAREZ. HE STATED THIS PATIENT CAN SCHEDULE THIS STRESS TEST AN OUTPATIENT. ALSO STATED HE WOULD COME TO SEE THE PATIENT THIS EVENING TO DISCUSS. CANCELLED TREADMILL STRESS TEST. PATIENT'S NURSE IS ALSO AWARE OF THE PLAN.
--- NOTE | 2025-06-07 18:54 | PM.PNCARD ---
Subjective Date/time seen: 06/07/25 18:54 Patient left hospital before I could see patient bin person and examine her. She left AMA. Recommend out patient fu and outpatient stress test done when patient's blood pressure is better controlled. She has previous antihypertensive medications that she is planning to take at home before the next fu Ever Dr. Reis or me can see pt in follow-up in near future. what ever patient wants to do. Objective Data Vital Signs Vital Signs: Vital Signs - 24 hr 06/06/25 19:36 06/06/25 20:00 06/06/25 20:00 Temperature 36.8 C Pulse Rate 93 97 Respiratory Rate 21 H Blood Pressure 159/93 H Pulse Oximetry 98 Oxygen Delivery Room Air Fraction of Inspired Oxygen 06/06/25 22:00 06/06/25 22:07 06/06/25 22:58 Temperature 36.8 C Pulse Rate 88 90 Respiratory Rate 18 Blood Pressure 156/97 H Pulse Oximetry 96 100 Oxygen Delivery Room Air Fraction of Inspired Oxygen 21 06/07/25 00:00 06/07/25 00:00 06/07/25 02:00 Temperature Pulse Rate 78 79 Respiratory Rate Blood Pressure Pulse Oximetry Oxygen Delivery Room Air Fraction of Inspired Oxygen 06/07/25 04:00 06/07/25 04:00 06/07/25 04:00 Temperature 36.6 C Pulse Rate 83 79 Respiratory Rate 20 Blood Pressure 160/96 H Pulse Oximetry 99 Oxygen Delivery Room Air Fraction of Inspired Oxygen 06/07/25 04:00 06/07/25 06:00 06/07/25 08:00 Temperature 36.6 C Pulse Rate 78 83 93 Respiratory Rate 18 Blood Pressure 175/110 H Pulse Oximetry 99 Oxygen Delivery Fraction of Inspired Oxygen 06/07/25 08:00 06/07/25 08:00 06/07/25 08:30 Temperature Pulse Rate 81 86 Respiratory Rate Blood Pressure Pulse Oximetry Oxygen Delivery Room Air Fraction of Inspired Oxygen 06/07/25 09:27 06/07/25 10:00 06/07/25 11:39 Temperature Pulse Rate 81 Respiratory Rate Blood Pressure 145/94 H Pulse Oximetry 97 Oxygen Delivery Room Air Fraction of Inspired Oxygen 06/07/25 11:54 06/07/25 12:00 Temperature 36.9 C Pulse Rate 82 79 Respiratory Rate 20 Blood Pressure 145/94 H Pulse Oximetry 99 Oxygen Delivery Fraction of Inspired Oxygen Intake/Output Intake/Output: Intake & Output 06/04/25 06/05/25 06/06/25 06/07/25 23:59 23:59 23:59 23:59 Intake Total 240 922 Balance 240 922 Meds/Results Radiology Results: ITS Impressions Chest X-Ray 06/06/25 12:18 Impression: Clear lungs. Labs Labs: Laboratory Results - last 24 hr 06/06/25 06/06/25 06/07/25 17:18 20:43 04:13 WBC 7.8 RBC 3.78 L Hgb 11.8 L Hct 36.5 L MCV 96.6 MCH 31.2 MCHC 32.3 RDW 13.4 Plt Count 344 MPV 9.4 Immature Gran % (Auto) 0.3 Neut % (Auto) 54.9 Lymph % (Auto) 35.0 Caroline % (Auto) 5.8 Eos % (Auto) 3.6 Baso % (Auto) 0.4 Lymph # (Auto) 2.71 Caroline # (Auto) 0.5 Eos # (Auto) 0.3 Baso # (Auto) 0.0 Abs Immat Gran (auto) 0.02 Absolute Neuts (auto) 4.3 Absolute Nucleated RBC 0.000 Nucleated RBC % 0.0 Sodium 138 Potassium 3.4 Chloride 106 Carbon Dioxide 25 Anion Gap 7 BUN 14 Creatinine 0.73 Estim Creat Clear Calc 98 Estimated GFR > 60 Glucose 103 Calcium 8.8 Troponin I 0.014 D 0.014 Triglycerides 151 H Cholesterol 158 LDL Cholesterol Direct 87 HDL Direct 36
--- NOTE | 2025-06-29 07:57 | PM.DS ---
DS: Admitting Diagnosis Discharge Date 06/07/25 Admitting Diagnosis Abnormal labs DS: Summary Hospital Course Hospital Course: patient left AMA Time Spent with Patient Time attestation: Total time spent providing and/or coordinating discharge services: Discharge Plan Discharge Consulting providers: Ramu Guo; Mikey Hernandes; Brianna Ha; Miller Stephens; Rudi Hurley Discharging Clinician: Be Zepeda Patient Disposition: Home Activity: as tolerated Diet: heart healthy Discharge Instructions: left AMA Patient Instructions: Antibiotic Form Patient Language: Sinhala Stand Alone Forms: General Discharge Information, Work/School Release IP Follow-up/Referrals: Jose J Magana MD [Primary Care Provider] - Discharge Medications: Continued potassium chloride 10 mEq tablet extended release See Rx Instructions .ROUTE .COMPLEX Qty: 90 0RF Dose Instruction: TAKE 1 TABLET BY MOUTH EVERY DAY Rx Instructions: TAKE 1 TABLET BY MOUTH EVERY DAY alprazolam 0.25 mg tablet 0.25 mg PO BID PRN (Reason: anxiety) Qty: 60 0RF clonidine HCl 0.1 mg tablet 0.1 mg PO BID Qty: 60 3RF irbesartan 300 mg tablet 300 mg PO DAILY Qty: 90 2RF triamterene-hydrochlorothiazid 37.5-25 mg tablet See Rx Instructions .ROUTE .COMPLEX Qty: 90 1RF Dose Instruction: TAKE 1 TABLET BY MOUTH EVERY MORNING Rx Instructions: TAKE 1 TABLET BY MOUTH EVERY MORNING labetalol 100 mg tablet 100 mg PO Q12H Qty: 60 0RF No Action carvedilol 25 mg tablet 25 mg PO Q12H Qty: 60 4RF Rx Instructions: must administer with a meal/food furosemide [Lasix] 20 mg tablet 20 mg PO QAM Qty: 60 0RF hydrocodone-acetaminophen 5-325 mg tablet 1 tablet PO Q8H PRN (Reason: severe pain (scale score 7-10)) Qty: 14 0RF Date of admission: 06/06/25 15:59 Primary Care Provider: Jose J Magana Admitting Provider: Nawaf Alfaro Attending physician on admission: Be Zepeda Condition: Stable
== END 2025-06-07 13:40 | disposition home or self-care (01) ==
LOC: ANHED 14:05 → ANHIMU 06-07 13:29
PROVIDERS: Nurse Practitioner Gerontology; Admitting Provider Internal Medicine; Emergency Provider Family Medicine; PCP Family Medicine; Visit Provider Family Medicine
DX: I16.1 Hypertensive emergency (principal); I10 Essential (primary) hypertension; R79.89 Other specified abnormal findings of blood chemistry; E05.90 Thyrotoxicosis, unspecified without thyrotoxic crisis or storm; F17.210 Nicotine dependence, cigarettes, uncomplicated; J45.909 Unspecified asthma, uncomplicated; Z79.51 Long term (current) use of inhaled steroids; Z79.899 Other long term (current) drug therapy
CPT/HCPCS: 36415; 71045; 80048; 80053; 80061; 81003; 83880; 84443; 84484; 85025; 93005; 96374; 96375; 96376; 99285; A9270; C8929; G0378; Q9957